=== PATIENT | female | born 1975 | race Caucasian/White ===

== ENCOUNTER 2021-09-01 11:12 | Emergency (ER) | payer SELFPAY ==
[2021-09-01 11:33] VITALS: BP 132/80; PULSE 78; RESP 18; TEMP 36.8; O2SAT 98; BMI 52.4
[2021-09-01 14:51] LABS: Basophils % 0.5 %; Eosinophils % 0.1 %; Hematocrit 42.2 % (37.0-47.0); Hemoglobin 13.8 g/dL (11.5-15.3); Lymphocytes % 12.9 %; Mean Corpuscular HGB Conc 32.7 g/dL (30.0-36.0); Mean Corpuscular Hemoglobin 30.1 pg (28.0-34.0); Mean Corpuscular Volume 91.9 fl (81-99); Mean Platelet Volume 10.3 fL (7.4-10.4); Monocytes # 0.3 10^3/uL (0.2-0.9); Monocytes % 4.4 %; Neutrophils # 6.36 10^3/uL (1.8-7.7); Neutrophils % 81.8 %; Nucleated Red Blood Cells % 0 %; Platelet Count 260 10^3/cmm (130-400); Red Blood Count 4.59 10^6/uL (4.1-5.3); Red Cell Distribution Width 13.3 % (12.1-15.1); White Blood Count 7.8 10^3/uL (4.0-10.0)
--- NOTE | 2021-09-01 14:54 | CTR_ITS ---
PROCEDURE INFORMATION: Exam: CT Abdomen And Pelvis With Contrast Exam date and time: 09/01/2021 2:54 PM Age: 46 years old Clinical indication: Abdominal pain; Localized; Left lower quadrant (llq); Prior surgery; Surgery type: Hernia, tubal, gb; Additional info: Llq pain TECHNIQUE: Imaging protocol: Computed tomography of the abdomen and pelvis with contrast. Radiation optimization: All CT scans at this facility use at least one of these dose optimization techniques: automated exposure control; mA and/or kV adjustment per patient size (includes targeted exams where dose is matched to clinical indication); or iterative reconstruction. Contrast material: OMNI 300; Contrast volume: 95 ml; Contrast route: INTRAVENOUS (IV); COMPARISON: CT abdomen pelvis w con* [id number] 01/30/2017 9:19 PM RADIATION DOSE METRICS: Total DLP (mGy-cm): 1936.11 FINDINGS: Liver: Normal. No mass. Gallbladder and bile ducts: Cholecystectomy. The bile ducts are normal. Pancreas: Normal. No ductal dilation. Spleen: Normal. No splenomegaly. Adrenal glands: Normal. No mass. Kidneys and ureters: Normal. No hydronephrosis. Stomach and bowel: Diverticulosis of the distal colon. No diverticulitis. Appendix: The appendix is not visualized. No secondary signs of appendicitis. Intraperitoneal space: Trace pelvic ascites is likely physiologic. No free peritoneal air. Vasculature: Unremarkable. No abdominal aortic aneurysm. Lymph nodes: Unremarkable. No enlarged lymph nodes. Urinary bladder: Unremarkable as visualized. Reproductive: 4.6 cm left ovarian simple cyst, Hounsfield units less than 20. 5.5 cm complex appearing lesion with central low density, abutting the anterior left uterus and inferior left ovary. The uterus is otherwise unremarkable. The right ovary is normal. Bones/joints: Unremarkable. No acute fracture. Soft tissues: Unremarkable. Other findings: Anterior laparotomy scar. CT/CT abdomen pelvis w con* [id number] IMPRESSION: 1. 5.5 cm complex lesion in the left adnexa. This could represent a pedunculated uterine fibroid with central necrosis or a lesion arising from the ovary. Follow-up with dedicated pelvic ultrasound is recommended. 2. 4.6 cm left ovarian simple cyst. 3. Diverticulosis of the distal colon without evidence for diverticulitis.
--- NOTE | 2021-09-01 15:03 | W.ED.GENADLT ---
HPI - General Adult General: Chief complaint: Abdominal Pain Stated complaint: Pains in lower back and side/blood in stool Time Seen by Provider: 09/01/21 14:54 History of Present Illness: HPI narrative: Patient is a 46-year-old female with history of diverticulitis, cholecystectomy, prior umbilical hernia s/p repair presenting to emergency with complaints of sharp left lower quadrant abdominal pain since yesterday night now with 2 episodes of blood in the stool. Patient tells me that the pain started yesterday while she was at home after eating. Patient denies any fever/chills, melena hematochezia, new vaginal discharge, vaginal bleeding, or urinary symptoms. Patient says the symptoms feels like prior episode of diverticulitis. Denies any cough/runny nose/sore throat, malaise or generalized weakness. Patient has no prior history of kidney stone. She has been able to pass gas without any difficulty. Has been able to tolerate p.o. today without any issue. Onset: 1 day ago Duration: 1 day Location:home Severity:moderate Associated symptoms: Deny chest pain, dyspnea, nausea, rash, palpitations or vomiting Review of Systems Const: Denies: fever(s) or chills Eyes: Denies: change in vision ENMT: Denies: mouth pain Card: Denies: chest pain or palpitations Resp: Denies: dyspnea or non-productive cough GI: Reports: abdominal pain (LLQ); Denies: nausea, vomiting or diarrhea : Denies: urinary frequency or urinary urgency Musc: Denies: extremity pain Skin/Breast: Denies: rash or new lesions Neuro: Denies: weakness in extremities Psych: Reports: other (Normal mood) Howard/Lymph: Denies: easy bruising PFSH ED PFSH: Surgical History Hx of cholecystectomy 2012 Hx of hernia repair 2014 Hx of tubal ligation 1997 Family History Father Hypertension Diabetes Mother Hypertension Diabetes Social History Smoking and tobacco status: former smoker Second hand smoke exposure: No Alcohol intake: never Lives independently: Yes Household members: spouse Housing: Manufactured/Mobile home Marital status: Number of children: 3 Highest education level completed: Some College, No Degree Pets and animals: Yes Pets & animals: cat(s), dog(s) and guinea pig(s) History of recent travel: No Female Reproductive History: Date of last menstrual period: 08/09/21 Physical Exam Const: COMMON NORMALS: alert HENMT: COMMON NORMALS: atraumatic HEAD & SCALP: atraumatic MOUTH: moist mucous membranes not abnormal Eye: COMMON NORMALS: EOMs intact bilaterally and conjunctivae normal CONJUNCTIVA: Yes conjunctivae normal Neck/C-Spine: COMMON NORMALS: full ROM and supple Resp: COMMON NORMALS: normal respiratory effort and clear to auscultation bilaterally AUSCULTATION: clear to auscultation bilaterally Cardio: COMMON NORMALS: regular rate RATE: regular rate GI: COMMON NORMALS: Soft to palpation PALPATION: Yes Soft to palpation OTHER: + LLQ focal TTP. NO guarding rebound, guarding, rigidity. No CVA tenderness to percussion. Neg Man/Neg McBurney's point tenderness, no suprabupic tenderness to palpation. : BIMANUAL EXAM - ADNEXA, OTHER: Yes Other Extremity: COMMON NORMALS: full ROM Neuro: SENSORIUM/ORIENTATION: Yes alert MOTOR EXAM: No Abnormal motor strength present and Other motor observations present (no focal motor deficits) Psych: COMMON NORMALS: speech normal SPEECH: Yes normal speech MOOD & AFFECT: Yes euthymic mood Course Vital Signs: Vital signs: Vital Signs Temperature 98.3 F 09/01/21 11:33 Pulse Rate 69 09/01/21 19:41 Respiratory Rate 17 09/01/21 19:41 Blood Pressure 129/70 09/01/21 19:41 Pulse Oximetry 97 09/01/21 19:41 MDM - General Adult MDM Narrative: Medical decision making narrative: Patient is a 46-year-old female with history of diverticulitis, umbilical hernias s/p repair, cholecystectomy presenting to the emergency room with 1 day of left lower quadrant abdominal pain with hematochezia x2 episodes. Patient deferred rectal exam today. Exam: Patient is hemodynamically stable, no signs of conjunctival pallor she has focal tenderness to palpation in LLQ wihout any guarding or rebound tenderness. White count 7.8 today. Hemoglobin of 13.8. CTpelvis showed possible left complex adnexal lesion. Pelvic US showed hemorrhagic cyst I have given patient follow-up with an applications engineer manufacturing provider for further evaluation of symptoms of pain. Patient aware of a call from our rn case management to schedule for appointment(s) and verbalizes understanding of the importance of following up. No suspicion for other acute intra-abdominal pathology including SBO, biliary pathology, appendicitis, diverticulitis, or other emergent condition requiring surgery. Rx tylenol PRN abd pain, maalox/pepcid PRN dyspepsia, and zofran PRN nausea/vomiting Disposition: Discharge. Patient counseled regarding diagnostic impression, treatment plan. Patient given ED strict return precautions to return for continuation, worsening, or development of new symptoms. Instructed to f/u w/ PCP regarding symptoms today. Patient verbalized understanding. Lab Data: Labs: Lab Results 09/01/21 09/01/21 09/01/21 14:43 14:43 14:43 WBC 7.8 10^3/uL 10^3/ uL (4.0-10.0) RBC 4.59 10^6/uL 10^6 /uL (4.1-5.3) Hgb 13.8 g/dL g/dL (11.5-15.3) Hct 42.2 % % (37.0-47.0) MCV 91.9 fl fl (81-99) MCH 30.1 pg pg (28.0-34.0) MCHC 32.7 g/dL g/dL (30.0-36.0) RDW 13.3 % % (12.1-15.1) Plt Count 260 10^3/cmm 10^3 /cmm (130-400) MPV 10.3 fL fL (7.4-10.4) Neut % (Auto) 81.8 % % Lymph % (Auto) 12.9 % % [place] % (Auto) 4.4 % % Eos % (Auto) 0.1 % % Baso % (Auto) 0.5 % % Neut # (Auto) 6.36 10^3/uL 10^3 /uL (1.8-7.7) Lymph # (Auto) 1.0 10^3/uL 10^3/ uL (0.8-4.8) [place] # (Auto) 0.3 10^3/uL 10^3/ uL (0.2-0.9) Eos # (Auto) 0.0 10^3/uL 10^3/ uL (0.0-0.8) Baso # (Auto) 0.0 10^3/uL 10^3/ uL (0.0-0.1) Nucleated RBC % (a uto) 0 % % Nucleated RBCs # 0.0 /100WBC /100W BC PT 13.20 SECONDS SEC ONDS (12.1-14.9) INR 0.97 (0.8-1.2) Sodium 135 mmol/L L mmol /L (136-145) Potassium 4.0 mmol/L mmol/L (3.5-5.1) Chloride 102 mmol/L mmol/L (98-107) Carbon Dioxide 22 mmol/L mmol/L (22-29) Anion Gap 15.0 (5-19) BUN 13 mg/dL mg/dL (6-20) Creatinine 0.6 mg/dL mg/dL (0.5-0.9) GFR Calculation 107.6 mL/min mL/m in (90-130) Glucose 87 mg/dL mg/dL (65-115) Calculated Osmolal ity 279 mOsm/kg L mOs m/kg (285-295) Calcium 9.0 mg/dL mg/dL (8.5-10.5) Total Bilirubin 0.4 mg/dL mg/dL (0.15-1.2) AST 14 U/L U/L (0-32) ALT 11 U/L U/L (0-33) Alkaline Phosphata se 60 IU/L IU/L (35-105) Total Protein 7.0 g/dL g/dL (6.6-8.7) Albumin 4.2 g/dL g/dL (3.5-5.2) Globulin 2.8 g/dL g/dL (1.3-4.6) Lipase 25 U/L U/L (13-60) Urine Color Urine Appearance Urine pH Ur Specific Gravit y Urine Protein Urine Glucose (UA) Urine Ketones Urine Blood Urine Nitrate Urine Bilirubin Urine Urobilinogen Ur Leukocyte Berkley ase Urine HCG, Qual 09/01/21 09/01/21 15:21 15:21 WBC RBC Hgb Hct MCV MCH MCHC RDW Plt Count MPV Neut % (Auto) Lymph % (Auto) [place] % (Auto) Eos % (Auto) Baso % (Auto) Neut # (Auto) Lymph # (Auto) [place] # (Auto) Eos # (Auto) Baso # (Auto) Nucleated RBC % (a uto) Nucleated RBCs # PT INR Sodium Potassium Chloride Carbon Dioxide Anion Gap BUN Creatinine GFR Calculation Glucose Calculated Osmolal ity Calcium Total Bilirubin AST ALT Alkaline Phosphata se Total Protein Albumin Globulin Lipase Urine Color Yellow (Yellow) Urine Appearance Clear (CLEAR) Urine pH 5 (5-7) Ur Specific Gravit y 1.025 (1.005-1.030) Urine Protein Neg (Negative) Urine Glucose (UA) Norm (Normal) Urine Ketones 1+ H (Negative) Urine Blood Neg (Negative) Urine Nitrate Negative (Negative) Urine Bilirubin Neg (Negative) Urine Urobilinogen Neg mg/dL mg/dL (Negative) Ur Leukocyte Berkley ase Negative (Negative) Urine HCG, Qual Negative (Negative) Imaging Data^: Other Imaging: Radiologist's impression: [address] [id number] Scan ReportSigned Patient: Juliano Stephen #: [id number]: [id number]#:[id number]/Sex: 46 / FADM Date: 09/01/21Loc: ERRoom/Bed:Attending Dr: Ordering Provider/Ordering MD: Marcia Stewart MD Date of Service: 09/01/21 Procedure(s): CT abdomen pelvis w con* [id number] Accession Number(s): [id number] Report Number: [id number] PROCEDURE INFORMATION: Exam: CT Abdomen And Pelvis With Contrast Exam date and time: 09/01/2021 2:54 PM Age: 46 years old Clinical indication: Abdominal pain; Localized; Left lower quadrant (llq); Prior surgery; Surgery type: Hernia, tubal, gb; Additional info: Llq pain TECHNIQUE: Imaging protocol: Computed tomography of the abdomen and pelvis with contrast. Radiation optimization: All CT scans at this facility use at least one of these dose optimization techniques: automated exposure control; mA and/or kV adjustment per patient size (includes targeted exams where dose is matched to clinical indication); or iterative reconstruction. Contrast material: OMNI 300; Contrast volume: 95 ml; Contrast route: INTRAVENOUS (IV); COMPARISON: CT abdomen pelvis w con* [id number] 01/30/2017 9:19 PM RADIATION DOSE METRICS: Total DLP (mGy-cm): 1936.11 FINDINGS: Liver: Normal. No mass. Gallbladder and bile ducts: Cholecystectomy. The bile ducts are normal. Pancreas: Normal. No ductal dilation. Spleen: Normal. No splenomegaly. Adrenal glands: Normal. No mass. Kidneys and ureters: Normal. No hydronephrosis. Stomach and bowel: Diverticulosis of the distal colon. No diverticulitis. Appendix: The appendix is not visualized. No secondary signs of appendicitis. Intraperitoneal space: Trace pelvic ascites is likely physiologic. No free peritoneal air. Vasculature: Unremarkable. No abdominal aortic aneurysm. Lymph nodes: Unremarkable. No enlarged lymph nodes. Urinary bladder: Unremarkable as visualized. Reproductive: 4.6 cm left ovarian simple cyst, Hounsfield units less than 20. 5.5 cm complex appearing lesion with central low density, abutting the anterior left uterus and inferior left ovary. The uterus is otherwise unremarkable. The right ovary is normal. Bones/joints: Unremarkable. No acute fracture. Soft tissues: Unremarkable. Other findings: Anterior laparotomy scar. CT/CT abdomen pelvis w con* [id number] IMPRESSION: 1. 5.5 cm complex lesion in the left adnexa. This could represent a pedunculated uterine fibroid with central necrosis or a lesion arising from the ovary. Follow-up with dedicated pelvic ultrasound is recommended. 2. 4.6 cm left ovarian simple cyst. 3. Diverticulosis of the distal colon without evidence for diverticulitis. Dictated By:Lavern Andrade By:Lavern Andrade Date/Time:09/01/21 1751DD/ [address] [id number] ReportSigned Patient: Juliano Stephen #: [id number]: [id number]#:[id number]/Sex: 46 / FADM Date: 09/01/21Loc: ERRoom/Bed:Attending Dr: Ordering Provider/Ordering MD: Marcia Stewart MD Date of Service: 09/01/21 Procedure(s): US transvaginal [id number] Accession Number(s): [id number] Report Number: [id number] PROCEDURE INFORMATION: Exam: US Pelvis, Transvaginal Exam date and time: 09/01/2021 6:05 PM Age: 46 years old Clinical indication: Abnormal findings; Abnormal imaging test; Patient HX: Mass on CT; Additional info: Eval for L adnexal lesion TECHNIQUE: Imaging protocol: Real-time transvaginal pelvic ultrasound with image documentation. Transvaginal imaging was used for better evaluation of the endometrium, adnexa, and/or cervix. COMPARISON: CT abdomen pelvis w con* [id number] 09/01/2021 5:15 PM FINDINGS: Uterus: The uterus measures 9.8 x 5.0 x 6.4 cm. The endometrial thickness is 13.9 mm. Cervix: Multiple anechoic nabothian cysts in the cervix. Right ovary/adnexa: The right ovary measures 2.6 x 2.2 x 2.1 cm with normal blood flow. Left ovary/adnexa: The left ovary measures 8.9 x 4.3 x 3.1 cm with normal blood flow. 3.9 cm simple anechoic left ovarian cyst. 4.1 cm hemorrhagic cyst in the left ovary with internal echogenicity and no internal vascularity. Small amount of anechoic free fluid in the left adnexa. Intraperitoneal space: No free fluid. US/US transvaginal [id number] IMPRESSION: 1. 4.1 cm hemorrhagic cyst in the left ovary. Hemorrhagic ovarian cysts less than 5.0 cm typically require no follow-up in asymptomatic patients. Because this may relate to the patient's symptoms, follow-up ultrasound in 6-12 weeks is recommended to ensure resolution. Dictated By:Lavern Andrade By:Lavern Andrade Date/Time:09/01/21 193DD/ 04 Discharge Plan Discharge Patient Disposition: Home Clinical Impression: Abdominal pain, Hematochezia Condition: Stable Prescriptions: New acetaminophen 500 mg tablet 500 mg PO Q6H PRN (Reason: pain) 5 Days Qty: 20 RF: 0 Zofran 4 mg tablet 4 mg PO TID PRN (Reason: nausea and vomiting) 4 Days Qty: 12 RF: 0 Pepcid 20 mg tablet 20 mg PO BID PRN (Reason: abdominal pain) 10 Days Qty: 20 RF: 0 Maalox Advanced 1,000-60 mg tablet,chewable 1 tab PO TID PRN (Reason: abdominal pain) 7 Days Qty: 21 RF: 0 No Action amoxicillin-pot clavulanate [Augmentin] 875-125 mg tablet 1 tab PO BID 10 Days Qty: 20 RF: 0 ibuprofen 800 mg tablet 800 mg PO TID PRN (Reason: pain) 10 Days Qty: 30 RF: 0 Discharge Orders: Discharge ED (Routine); Ordered 09/01/21 Ordered By: Marcia Stewart Referrals: Lilibeth Puga MD [Primary Care Provider] - Discharge Diet: Advance as tolerated Discharge Activity: Resume usual activity Patient Instructions: Abdominal Pain (ED) Activity Restrictions/Additional Instructions: Please come back if you have any worsening abdominal pain, fever or chills, nausea or vomiting, diarrhea, blood in the stool, inability hold down liquid or solids, or any new concerning complaints. Our rn case management will have you follow-up with [facility] in the next few days for your hemorrhagic cysts that is causing pain. You would be expected to have a phone call with our rn case management who will put you on the schedule. Coding Level of Care Code ED Still Tender for Chg Fwd Exam Comprehensive
[2021-09-01 15:09] LABS: Alanine Aminotransferase 11 U/L (0-33); Albumin Level 4.2 g/dL (3.5-5.2); Alkaline Phosphatase 60 IU/L (35-105); Aspartate Amino Transferase 14 U/L (0-32); Blood Urea Nitrogen 13 mg/dL (6-20); Carbon Dioxide 22 mmol/L (22-29); Chloride 102 mmol/L (98-107); Globulin 2.8 g/dL (1.3-4.6); Glomerular Filtration Rate 107.6 mL/min (90-130); Glucose 87 mg/dL (65-115); Lipase 25 U/L (13-60); Osmolality Calculated 279 mOsm/kg (285-295); Sodium 135 mmol/L (136-145); Total Bilirubin 0.4 mg/dL (0.15-1.2)
[2021-09-01 15:10] LABS: INR 0.97 (0.8-1.2)
[2021-09-01 15:30] LABS: Add Urine Microscopic? NO; Charge for UA Resulting for Rev
[2021-09-01 15:49] LABS: Bilirubin Urine Neg (Negative); Blood Urine Neg (Negative); Glucose Urine UA Norm (Normal); Ketones Urine 1+ (Negative); Leukocyte Esterase Urine Negative (Negative); Nitrate Urine Negative (Negative); Protein Urine Neg (Negative); Specific Gravity, Urine 1.025 (1.005-1.030); Urine Appearance Clear (CLEAR); Urine Color Yellow (Yellow); Urobilinogen Urine Neg (Negative); pH Urine 5 (5-7)
--- NOTE | 2021-09-01 18:05 | USR_ITS ---
PROCEDURE INFORMATION: Exam: US Pelvis, Transvaginal Exam date and time: 09/01/2021 6:05 PM Age: 46 years old Clinical indication: Abnormal findings; Abnormal imaging test; Patient HX: Mass on CT; Additional info: Eval for L adnexal lesion TECHNIQUE: Imaging protocol: Real-time transvaginal pelvic ultrasound with image documentation. Transvaginal imaging was used for better evaluation of the endometrium, adnexa, and/or cervix. COMPARISON: CT abdomen pelvis w con* [id number] 09/01/2021 5:15 PM FINDINGS: Uterus: The uterus measures 9.8 x 5.0 x 6.4 cm. The endometrial thickness is 13.9 mm. Cervix: Multiple anechoic nabothian cysts in the cervix. Right ovary/adnexa: The right ovary measures 2.6 x 2.2 x 2.1 cm with normal blood flow. Left ovary/adnexa: The left ovary measures 8.9 x 4.3 x 3.1 cm with normal blood flow. 3.9 cm simple anechoic left ovarian cyst. 4.1 cm hemorrhagic cyst in the left ovary with internal echogenicity and no internal vascularity. Small amount of anechoic free fluid in the left adnexa. Intraperitoneal space: No free fluid. US/US transvaginal [id number] IMPRESSION: 1. 4.1 cm hemorrhagic cyst in the left ovary. Hemorrhagic ovarian cysts less than 5.0 cm typically require no follow-up in asymptomatic patients. Because this may relate to the patient's symptoms, follow-up ultrasound in 6-12 weeks is recommended to ensure resolution.
[2021-09-01 18:45] VITALS: BP 127/69; PULSE 67; RESP 16; O2SAT 96
[2021-09-01 19:41] VITALS: BP 129/70; PULSE 69; RESP 17; O2SAT 97
--- NOTE | 2021-09-02 15:11 | DCPLANNER ---
Addendum entered by Radha Dougherty 10/08/21 15:05: manager store called [facility], spoke with Viral, to confirm if an appointment had been scheduled for patient. manager store was told that clinic was unable to reach patient to schedule an appointment. Original Note: manager store had message to schedule a follow up appointment for patient with [facility]. manager store called the [facility] clinic, spoke with Viral, gave clinic patients information. manager store was told that patients information would be printed and reviewed. Clinic will call patient with appointment information.
== END 2021-09-01 19:43 | disposition home or self-care (01) ==
PROVIDERS: Nurse Practitioner Family; Emergency Provider Emergency Medicine; PCP Family Medicine
DX: R10.9 Unspecified abdominal pain (principal); K92.1 Melena; Z87.891 Personal history of nicotine dependence
CPT/HCPCS: 36415; 74177; 76830; 80053; 81003; 81025; 83690; 85025; 85610; 99283; Q9967

== ENCOUNTER 2024-03-07 14:28 | Oncology outpatient (recurring) (ONCR) | payer BC, MEDICAID, SELFPAY | END 2024-03-21 23:59 | disposition home or self-care (01) | PROVIDERS: PCP Nurse Practitioner Family; Visit Provider Internal Medicine | DX: C50.412 Malignant neoplasm of upper-outer quadrant of left female breast (principal) | CPT/HCPCS: 36415; 99215 ==

== ENCOUNTER 2024-03-14 12:55 | Outpatient (CLI) | payer BC, MEDICAID, SELFPAY ==
--- NOTE | 2024-03-14 13:30 | US_ITS ---
WS: [id number] ULTRASOUND-GUIDED LEFT AXILLARY LYMPH NODE BIOPSY CLINICAL INFORMATION: Recently diagnosed LEFT breast cancer at outside facility. No recent mammograms at [facility]. FINDINGS: LEFT axillary ultrasound was performed. Largest lymph node noted in the LEFT axilla was arun ected. Largest lymph node measures approximately 2.7 x 1.5 cm The procedure including risks, benefits, and complications were discussed with the patient who agreed to proceed. Using sterile technique patient was prepped and draped in the usual sterile fashion. Aft er 1% lidocaine utilizing real-time ultrasound guidance four 14-gauge cores were obtained of the LEFT axillary lymph node. No immediate complications. No clip was placed. Pathology demonstrates metastatic poorly differentiated carcinoma. See pathology report for further d etail. US/US bx lymph breast/ax [id number] IMPRESSION: 1. Uncomplicated ultrasound-guided LEFT axillary biopsy 2. Pathology demonstrates metastatic poorly differentiated carcinoma. 3. Recommend follow-up with breast surgery and oncology BI-RADS: 6-Known Biopsy-Proven Malignancy FOLLOW UP: Surgical Biopsy Recommended
== END 2024-03-14 12:56 | disposition home or self-care (01) ==
PROVIDERS: PCP Nurse Practitioner Family; Visit Provider Nurse Practitioner Family
DX: C50.412 Malignant neoplasm of upper-outer quadrant of left female breast (principal)
CPT/HCPCS: 38505; 76942; 88305

== ENCOUNTER 2024-04-11 08:00 | Oncology outpatient (recurring) (ONCR) | payer BC, MEDICAID, SELFPAY ==
[2024-03-27] MEDS: iohexol 350 mg/mL 500 mL Btl (per mL) PO (16:02)
[2024-03-27] MEDS: iohexol 350 mg/mL 500 mL Btl (per mL) IV (16:16)
--- NOTE | 2024-03-27 16:45 | CT_ITS ---
WS: [id number] CT ABDOMEN AND PELVIS WITH CONTRAST HISTORY: carcinoma upper-outer l breast TECHNIQUE: Imaging performed of the abdomen and pelvis with IV contrast. Single phase imaging of the abdomen. Coronal and sagittal reformats are submitted. All CT scans at [facility] use at [address] one of these dose optimization techniques: automated exposure control; mA and/or kV adjustment per patient size (includes targeted exams where dose is matched to clinical indication); or iterative re construction. IV CONTRAST: Omnipaque 350; 100 mL IV. Oral contrast: Yes. DLP: 1659.83 mGy.cm COMPARISON: 09/01/2021 Lower thorax: Lung bases are clear. Heart is normal size. No hiatal hernia. Liver/biliary system: Liver is slightly enlarged with hepatic steatosis. Normal portal vein. Gallbladder: Prior cholecystectomy. Pancreas: Normal size pancreas and pancreatic duct. No adjacent inflammation. Spleen: Normal size spleen. No mass or infarct. Adrenal glands: Normal. Right kidney: Normal. Left kidney: Normal. Aorta: Normal. Lymphadenopathy: None. Free fluid: None. GI tract: No obstruction or colitis. Normal appendix. Mild distal colon diverticular disease. No evid ence for acute diverticulitis. No obstruction. Abdominal wall: Unremarkable abdominal wall. No hernia. Pelvis: No free fluid in the pelvis. Uterus is midline. LEFT adnexal cyst measures 5.3 x 5.9 cm. Pily lar cyst in this location noted in 2021. Cyst appears more simple on today's exam. Bones: Increase in lumbar lordosis. CT/CT abdomen pelvis w con* [id number] IMPRESSION: 1. No evidence for metastatic disease within the abdomen or pelvis. 2. No ascites or adenopathy. 3. Mild sigmoid diverticulosis without acute diverticulitis. 4. LEFT adnexal/ovarian cyst 5.3 x 5.9 cm. 5. Prior cholecystectomy.
--- NOTE | 2024-03-29 09:45 | NM_ITS ---
WS: [id number] NUCLEAR MEDICINE WHOLE BODY BONE SCAN HISTORY: carcinoma of upper-outer quad left breast COMPARISON: Prior CT abdomen and pelvis 03/27/2024. TECHNIQUE: The patient was injected with 24.8 mCi of Technetium 99m HDP and serial whole-body scintig alex have been performed with anterior and posterior images. Whole-body imaging demonstrates no pattern to suggest metastatic disease. The ribs and spine are nega tive for focal areas of intense uptake. Moderate uptake at the RIGHT AC joint and within each knee. More significant increased uptake within the medial LEFT tibial plateau. Soft tissue uptake is normal. Renal activity is identified. NM/NM bone scan whole body* [id number] IMPRESSION: 1. No evidence for metastatic disease to the bony skeleton. 2. Osteoarthritic changes involving each knee, greatest on the LEFT and the RI GHT AC joint.
--- NOTE | 2024-03-30 06:15 | USCV_ITS ---
Ara Stephen Age: 48 Gender: F : 1975 Exam Date: 03/30/2024 06:18 Ordering Phys: Nat Light APRN Technologist: Lauri Oglesby Exam Location: [facility] [place] Indication: high risk meds BP: 129 / 70 HR: 67 Rhythm: Sinus Technical Quality: Adequate MEASUREMENTS (Male / Female) Normal Values 2D ECHO LV Diastolic Diameter PLAX 3.6 cm 4.2 - 5.9 / 3.9 - 5.3 cm IVS Diastolic Thickness 1.8 cm 0.6 - 1.0 / 0.6 - 0.9 cm IVS Systolic Thickness 2.1 cm LVPW Diastolic Thickness 2.2 cm 0.6 - 1.0 / 0.6 - 0.9 cm LVPW Systolic Thickness 2.6 cm LVOT Diameter 2.3 cm LV Ejection Fraction 2D Teich 72.4 % LV Ejection Fraction MOD 4C 61.9 % LV Ejection Fraction MOD 2C 60.7 % LV Ejection Fraction 2C AL 60.8 % LA Diameter 3.5 cm RA Systolic Volume 4C AL 39.8 ml RA Systolic Volume 4C MOD 38.8 ml LA Sys Volume AL 65.0 cm cubed Aorta at Sinotubular Diameter 3.0 cm IVC Diameter 2.1 cm DOPPLER AV Peak Velocity 93.0 cm/s LVOT Peak Velocity 94.0 cm/s AV Area Cont Eq vti 5.2 cm squared AV Area Cont Eq pk 4.0 cm squared MV Peak Velocity 83.0 cm/s MV Area PHT 4.8 cm squared Mitral E to A Ratio 1.1 PV Peak Velocity 80.7 cm/s RV Ejection Time 0.3 s FINDINGS Left Ventricle Left ventricle is normal in size. LV systolic function is normal with EF of 60 to 65%. No regional wall motion abnormalities are seen. Right Ventricle Normal in size and function. Right Atrium Normal in size. Left Atrium Normal in size. Mitral Valve Structurally normal mitral valve. Mild mitral regurgitation. Aortic Valve Structurally normal aortic valve. No significant stenosis or regurgitation. Tricuspid Valve Trace tricuspid regurgitation Pulmonic Valve Not well-visualized Pericardium Normal Aorta Normal in size IVC Appears to be normal CONCLUSIONS LV systolic function is normal with EF of 60 to 65%. Mild mitral regurgitation Trace tricuspid regurgitation No comparison studies are available. Tobias Gerber MD (Electronically Signed) Final Date: 13 April 2024 21:04 S
[2024-04-02 08:22] LABS: Basophils % 0.7 %; Eosinophils # 0.1 10^3/uL (0.0-0.8); Eosinophils % 1.3 %; Hematocrit 40.1 % (36-47); Lymphocytes # 1.8 10^3/uL (0.8-4.8); Lymphocytes % 30.3 %; Mean Corpuscular HGB Conc 32.7 g/dL (30-55); Mean Corpuscular Hemoglobin 29.1 pg (27-33); Mean Corpuscular Volume 89.1 fl (85-98); Mean Platelet Volume 9.8 fL (7.4-10.4); Monocytes # 0.5 10^3/uL (0.2-0.9); Monocytes % 8.3 %; Neutrophils # 3.56 10^3/uL (1.8-7.7); Neutrophils % 59.1 %; Nucleated Red Blood Cells % 0 %; Platelet Count 275 10^3/cmm (157-399); Red Cell Distribution Width 14.6 % (12.1-15.1); White Blood Count 6.03 10^3/uL (3.29-11.43)
[2024-04-02 08:40] LABS: Alanine Aminotransferase 15 U/L (0-33); Albumin Level 3.9 g/dL (3.5-5.2); Alkaline Phosphatase 65 U/L (35-105); Anion Gap 15.9 (5-19); Aspartate Amino Transferase 18 U/L (0-32); Blood Urea Nitrogen 18 mg/dL (6-20); Calcium 9.4 mg/dL (8.5-10.5); Carbon Dioxide 25 mmol/L (22-29); Chloride 102 mmol/L (98-107); Glomerular Filtration Rate 76.6 mL/min (90-130); Glucose 122 mg/dL (65-115); Osmolality Calculated 291 mOsm/kg (285-295); Potassium 3.9 mmol/L (3.5-5.1); Sodium 139 mmol/L (136-145); Total Bilirubin 0.3 mg/dL (0.15-1.2); Total Protein 7.9 g/dL (6.6-8.7)
[2024-04-02 17:29] LABS: Estradiol 53.9 pg/mL; Luteinizing Hormone 7.4 mIU/mL (0.5-41.7)
[2024-04-04 08:10] VITALS: BP 160/83; PULSE 89; RESP 16; TEMP 36.5; O2SAT 96
[2024-04-04] MEDS: sodium chloride 0.9% 250 ML 75 ML IV (08:40)
[2024-04-04] MEDS: OLANZapine 5 mg TABLET PO (08:41)
[2024-04-04] MEDS: famotidine 20 mg/2 mL INJ IVP (08:44)
[2024-04-04] MEDS: diphenhydrAMINE 50 mg/mL SDV 1mL 25 MG IVP (08:49)
[2024-04-04] MEDS: dexamethasone 4 mg/mL INJ 12 MG IVP (08:55)
[2024-04-04] MEDS: palonosetron 0.25 mg/5 mL SDV IVP (09:03)
[2024-04-04] MEDS: fosaprepitant 150 MG in sodium chloride 0.9% 150 ML 300 MG IV (09:23)
[2024-04-04] MEDS: [UNRECOGNIZED DRUG - REMARK] 270.6 MG IV (10:12)
[2024-04-04] MEDS: pertuzumab-trastuzumab-hy-zzxf (80 mg-40 mg-2,000 units/ml) 15mL 1200 MG SUBCUT (13:29)
[2024-04-04] MEDS: pegfilgrastim 6 mg/0.6 mL Kit (onpro) SUBCUT (13:58)
[2024-04-04 14:15] VITALS: BP 117/71; PULSE 79; RESP 17; TEMP 36.2; O2SAT 95
[2024-04-11 08:22] LABS: Hematocrit 40.6 % (36-47); Mean Corpuscular HGB Conc 33.3 g/dL (30-55); Mean Corpuscular Volume 87.1 fl (85-98); Mean Platelet Volume 10.5 fL (7.4-10.4); Platelet Count 211 10^3/cmm (157-399); Red Blood Count 4.66 10^6/uL (3.85-5.65); Red Cell Distribution Width 14.6 % (12.1-15.1); White Blood Count 6.33 10^3/uL (3.29-11.43)
[2024-04-11 08:44] LABS: Alanine Aminotransferase 33 U/L (0-33); Albumin Level 3.7 g/dL (3.5-5.2); Alkaline Phosphatase 82 U/L (35-105); Anion Gap 15.6 (5-19); Aspartate Amino Transferase 19 U/L (0-32); Blood Urea Nitrogen 15 mg/dL (6-20); Calcium 8.6 mg/dL (8.5-10.5); Carbon Dioxide 25 mmol/L (22-29); Chloride 101 mmol/L (98-107); Creatinine Clr Calc Pharmacy 150.6795; Globulin 3.4 g/dL (1.3-4.6); Glomerular Filtration Rate 76.6 mL/min (90-130); Glucose 142 mg/dL (65-115); Osmolality Calculated 289 mOsm/kg (285-295); Potassium 3.6 mmol/L (3.5-5.1); Sodium 138 mmol/L (136-145); Total Bilirubin 0.2 mg/dL (0.15-1.2); Total Protein 7.1 g/dL (6.6-8.7)
[2024-04-11 09:10] LABS: Slide Review Slide Review Perform
[2024-04-11 09:13] LABS: Absolute Eosinophils 0.1 10^3/cmm (0.0-0.7); Absolute Neutrophil 3.7 10^3/cmm (1.4-6.5); Absolute Segmented Neutrophil 2.8 10/cmm (1.6-7.1); Band Neutrophils Absolute 0.9 10^3/cmm (0.0-1.2); Eosinophils 1 %; Lymphocytes 30 %; Lymphocytes Absolute 1.9 10^3/cmm (1.2-3.4); Monocytes Absolute 0.6 10^3/cmm (0.1-0.6); Platelet Estimate Normal (Normal); Segmented Neutrophils 44 %; Total Cells Counted 100 (0-100)
== END 2024-04-11 23:59 | disposition home or self-care (01) ==
PROVIDERS: Nurse Practitioner Family; PCP Nurse Practitioner Family; Visit Provider Nurse Practitioner Family
DX: C50.412 Malignant neoplasm of upper-outer quadrant of left female breast (principal); D05.12 Intraductal carcinoma in situ of left breast
CPT/HCPCS: 36591; 74177; 78306; 80053; 82670; 83001; 83002; 84702; 85007; 85025; 93306; 96367; 96375; 96377; 96402; 96413; 96415; 96417; A9561; J1100; J1200; J1453; J2469; J2506; J3490; J7040; J7050; J9045; J9171; J9316; Q9967

== ENCOUNTER → 2024-04-12 09:25 | Outpatient (BNVA) | payer BC, MEDICAID, SELFPAY | PROVIDERS: PCP Nurse Practitioner Family; Visit Provider Internal Medicine Medical Oncology | DX: R30.0 Dysuria (principal) | CPT/HCPCS: 81000 ==

== ENCOUNTER → 2024-04-18 09:56 | Outpatient (BNVA) | payer BC, MEDICAID, SELFPAY | PROVIDERS: PCP Nurse Practitioner Family; Visit Provider Internal Medicine Medical Oncology | DX: C50.412 Malignant neoplasm of upper-outer quadrant of left female breast (principal) | CPT/HCPCS: 80053; 85025 ==

== ENCOUNTER 2024-04-25 07:43 | Oncology outpatient (recurring) (ONCR) | payer BC, MEDICAID, SELFPAY ==
[2024-04-25 08:14] LABS: Basophils % 0.2 %; Hematocrit 38.6 % (36-47); Lymphocytes # 1.1 10^3/uL (0.8-4.8); Lymphocytes % 6.8 %; Mean Corpuscular HGB Conc 32.4 g/dL (30-55); Mean Corpuscular Hemoglobin 28.6 pg (27-33); Mean Corpuscular Volume 88.3 fl (85-98); Mean Platelet Volume 9.6 fL (7.4-10.4); Monocytes # 0.9 10^3/uL (0.2-0.9); Monocytes % 5.5 %; Neutrophils # 14.05 10^3/uL (1.8-7.7); Neutrophils % 85.3 %; Nucleated Red Blood Cells % 0 %; Platelet Count 476 10^3/cmm (157-399); Red Blood Count 4.37 10^6/uL (3.85-5.65); Red Cell Distribution Width 15.7 % (12.1-15.1); White Blood Count 16.48 10^3/uL (3.29-11.43)
[2024-04-25 08:33] LABS: Alanine Aminotransferase 26 U/L (0-33); Albumin Level 4.1 g/dL (3.5-5.2); Alkaline Phosphatase 67 U/L (35-105); Anion Gap 17.2 (5-19); Aspartate Amino Transferase 16 U/L (0-32); Blood Urea Nitrogen 20 mg/dL (6-20); Calcium 9.4 mg/dL (8.5-10.5); Carbon Dioxide 22 mmol/L (22-29); Chloride 101 mmol/L (98-107); Globulin 3.6 g/dL (1.3-4.6); Glomerular Filtration Rate 76.6 mL/min (90-130); Glucose 168 mg/dL (65-115); Osmolality Calculated 288 mOsm/kg (285-295); Potassium 4.2 mmol/L (3.5-5.1); Sodium 136 mmol/L (136-145); Total Bilirubin 0.2 mg/dL (0.15-1.2); Total Protein 7.7 g/dL (6.6-8.7)
[2024-04-25] MEDS: sodium chloride 0.9% 250 ML 75 ML IV (10:08)
[2024-04-25] MEDS: OLANZapine 5 mg TABLET PO (10:11)
[2024-04-25] MEDS: palonosetron 0.25 mg/5 mL SDV IVP (10:13)
[2024-04-25] MEDS: famotidine 20 mg/2 mL INJ IVP (10:14)
[2024-04-25] MEDS: dexamethasone 4 mg/mL INJ 12 MG IVP (10:18)
[2024-04-25] MEDS: diphenhydrAMINE 50 mg/mL SDV 1mL 25 MG IVP (10:21)
[2024-04-25] MEDS: fosaprepitant 150 MG in sodium chloride 0.9% 150 ML 300 MG IV (10:23)
[2024-04-25] MEDS: pertuzumab-trastuzumab-hy-zzxf (60 mg-60mg-2000 units/mL) 10mL 600 MG SUBCUT (11:06)
[2024-04-25] MEDS: [UNRECOGNIZED DRUG - REMARK] 271 MG IV (11:20)
[2024-04-25 13:47] VITALS: BP 129/76; PULSE 96; RESP 18; TEMP 36.2; O2SAT 94
[2024-04-25] MEDS: pegfilgrastim 6 mg/0.6 mL Kit (onpro) SUBCUT (13:55)
== END 2024-04-25 23:59 | disposition home or self-care (01) ==
PROVIDERS: Nurse Practitioner Family; PCP Nurse Practitioner Family; Visit Provider Nurse Practitioner Family
DX: C50.412 Malignant neoplasm of upper-outer quadrant of left female breast (principal); Z51.12 Encounter for antineoplastic immunotherapy; Z51.11 Encounter for antineoplastic chemotherapy; Z79.52 Long term (current) use of systemic steroids; Z79.899 Other long term (current) drug therapy
CPT/HCPCS: 80053; 85025; 96375; 96377; 96401; 96413; 96417; J1100; J1200; J1453; J2469; J2506; J3490; J7040; J7050; J9045; J9171; J9316

== ENCOUNTER 2024-05-16 07:38 | Oncology outpatient (recurring) (ONCR) | payer BC, MEDICAID, SELFPAY ==
[2024-05-02 09:33] LABS: Basophils # 0.1 10^3/uL (0.0-0.1); Basophils % 1.9 %; Eosinophils % 1.1 %; Hematocrit 42.9 % (36-47); Lymphocytes # 1.3 10^3/uL (0.8-4.8); Lymphocytes % 33.4 %; Mean Corpuscular HGB Conc 33.8 g/dL (30-55); Mean Corpuscular Volume 85.8 fl (85-98); Monocytes # 0.4 10^3/uL (0.2-0.9); Monocytes % 11.8 %; Neutrophils # 1.92 10^3/uL (1.8-7.7); Neutrophils % 51.3 %; Nucleated Red Blood Cells % 0 %; Platelet Count 267 10^3/cmm (157-399); Red Cell Distribution Width 15.1 % (12.1-15.1); White Blood Count 3.74 10^3/uL (3.29-11.43)
[2024-05-02] MEDS: sodium chloride 0.9% 1,000 ML 999 ML IV (09:40)
[2024-05-02] MEDS: ondansetron 2 mg/ML SDV 2 mL 8 MG IVP (09:41)
[2024-05-02] MEDS: dexamethasone 10 mg/mL INJ 12 MG IVP (09:48)
[2024-05-02 09:58] LABS: Slide Review Slide Review Perform
[2024-05-02 10:25] LABS: Alanine Aminotransferase 90 U/L (0-33); Albumin Level 4.2 g/dL (3.5-5.2); Alkaline Phosphatase 99 U/L (35-105); Anion Gap 19.8 (5-19); Aspartate Amino Transferase 42 U/L (0-32); Blood Urea Nitrogen 25 mg/dL (6-20); Calcium 9.1 mg/dL (8.5-10.5); Carbon Dioxide 22 mmol/L (22-29); Chloride 97 mmol/L (98-107); Globulin 3.6 g/dL (1.3-4.6); Glomerular Filtration Rate 66.8 mL/min (90-130); Glucose 157 mg/dL (65-115); Osmolality Calculated 290 mOsm/kg (285-295); Sodium 136 mmol/L (136-145); Total Bilirubin 0.5 mg/dL (0.15-1.2); Total Protein 7.8 g/dL (6.6-8.7)
[2024-05-02 10:27] LABS: Potassium 2.8 mmol/L (3.5-5.1)
[2024-05-02] MEDS: potassium chloride premix 100 ML 50 MEQ IV (10:42)
[2024-05-02 13:00] VITALS: BP 128/82; PULSE 93; RESP 16; TEMP 36.2; O2SAT 95
[2024-05-02] MEDS: loperamide 2 mg Capsule 4 MG PO (13:15)
[2024-05-03 11:25] LABS: Anion Gap 17.8 (5-19); Blood Urea Nitrogen 22 mg/dL (6-20); Calcium 9.4 mg/dL (8.5-10.5); Carbon Dioxide 21 mmol/L (22-29); Chloride 98 mmol/L (98-107); Glomerular Filtration Rate 66.8 mL/min (90-130); Glucose 156 mg/dL (65-115); Osmolality Calculated 285 mOsm/kg (285-295); Sodium 134 mmol/L (136-145)
[2024-05-03 11:26] LABS: Potassium 2.8 mmol/L (3.5-5.1)
[2024-05-03] MEDS: sodium chlor 0.9% + KCl 40 mEq 40 MEQ/1,000 ML BAG 500 MEQ IV (11:54)
[2024-05-03 14:18] VITALS: BP 127/73; PULSE 81; TEMP 35.9; O2SAT 3
[2024-05-03] MEDS: ondansetron 2 mg/ML SDV 2 mL 8 MG IVP (14:32)
[2024-05-03] MEDS: dexamethasone 4 mg/mL INJ IVP (14:39)
[2024-05-04 08:59] LABS: Anion Gap 16.6 (5-19); Blood Urea Nitrogen 21 mg/dL (6-20); Carbon Dioxide 23 mmol/L (22-29); Chloride 101 mmol/L (98-107); Glomerular Filtration Rate 66.8 mL/min (90-130); Glucose 124 mg/dL (65-115); Osmolality Calculated 290 mOsm/kg (285-295); Sodium 138 mmol/L (136-145)
[2024-05-04 09:12] LABS: Potassium 2.6 mmol/L (3.5-5.1)
[2024-05-04 09:44] VITALS: BP 115/49; PULSE 86; RESP 16; TEMP 36.9; O2SAT 95
[2024-05-04 11:04] LABS: Magnesium 1.9 mg/dL (1.7-2.3)
[2024-05-04 12:17] LABS: Urine Appearance Slightly Cloudy (CLEAR); Urine Color Yellow (Yellow)
[2024-05-04 12:18] LABS: Add Urine Microscopic? YES; Bilirubin Urine Neg (Negative); Blood Urine Neg (Negative); Glucose Urine UA Norm (Normal); Ketones Urine Negative (Negative); Leukocyte Esterase Urine Negative (Negative); Nitrate Urine Negative (Negative); Protein Urine 1+ (Negative); Urobilinogen Urine Norm (Negative); pH Urine 6 (5-7)
[2024-05-04 12:20] LABS: RBC Urine 0-4 /hpf (0-2); Squamous Epithelial Cell Urine 0-4 /hpf (0-5); WBC Urine 0-4 /hpf (0-5)
[2024-05-04 12:21] LABS: Add Urine Culture? No; Hyaline Casts Urine 25-40 /lpf; Mucus Urine 1+ /hpf
[2024-05-04 13:23] VITALS: BP 129/80; PULSE 80; RESP 16; TEMP 36.6; O2SAT 97
[2024-05-09 08:43] LABS: Basophils % 0.4 %; Hematocrit 33.9 % (36-47); Lymphocytes # 1.9 10^3/uL (0.8-4.8); Lymphocytes % 21.2 %; Mean Corpuscular HGB Conc 32.4 g/dL (30-55); Mean Corpuscular Hemoglobin 28.6 pg (27-33); Mean Corpuscular Volume 88.1 fl (85-98); Mean Platelet Volume 9.7 fL (7.4-10.4); Monocytes # 0.4 10^3/uL (0.2-0.9); Monocytes % 4.4 %; Neutrophils # 6.34 10^3/uL (1.8-7.7); Neutrophils % 70.2 %; Nucleated Red Blood Cells % 0 %; Platelet Count 107 10^3/cmm (157-399); Red Blood Count 3.85 10^6/uL (3.85-5.65); Red Cell Distribution Width 17.3 % (12.1-15.1); White Blood Count 9.03 10^3/uL (3.29-11.43)
[2024-05-09 09:05] LABS: Alanine Aminotransferase 49 U/L (0-33); Albumin Level 3.6 g/dL (3.5-5.2); Alkaline Phosphatase 83 U/L (35-105); Anion Gap 12.9 (5-19); Aspartate Amino Transferase 20 U/L (0-32); Blood Urea Nitrogen 18 mg/dL (6-20); Calcium 9.1 mg/dL (8.5-10.5); Carbon Dioxide 33 mmol/L (22-29); Chloride 100 mmol/L (98-107); Globulin 2.8 g/dL (1.3-4.6); Glomerular Filtration Rate 106.3 mL/min (90-130); Glucose 115 mg/dL (65-115); Osmolality Calculated 299 mOsm/kg (285-295); Sodium 143 mmol/L (136-145); Total Bilirubin 0.2 mg/dL (0.15-1.2); Total Protein 6.4 g/dL (6.6-8.7)
[2024-05-09 09:07] LABS: Potassium 2.9 mmol/L (3.5-5.1)
[2024-05-16 08:03] LABS: Basophils % 0.2 %; Hematocrit 35.6 % (36-47); Lymphocytes # 0.9 10^3/uL (0.8-4.8); Lymphocytes % 7.7 %; Mean Corpuscular Hemoglobin 29.1 pg (27-33); Mean Corpuscular Volume 90.8 fl (85-98); Monocytes # 0.3 10^3/uL (0.2-0.9); Monocytes % 2.1 %; Neutrophils # 10.38 10^3/uL (1.8-7.7); Neutrophils % 88.7 %; Nucleated Red Blood Cells % 0 %; Platelet Count 321 10^3/cmm (157-399); Red Blood Count 3.92 10^6/uL (3.85-5.65); Red Cell Distribution Width 18.4 % (12.1-15.1)
[2024-05-16 08:26] LABS: Alanine Aminotransferase 35 U/L (0-33); Alkaline Phosphatase 73 U/L (35-105); Anion Gap 16.5 (5-19); Aspartate Amino Transferase 18 U/L (0-32); Blood Urea Nitrogen 14 mg/dL (6-20); Calcium 9.5 mg/dL (8.5-10.5); Carbon Dioxide 24 mmol/L (22-29); Chloride 102 mmol/L (98-107); Globulin 3.1 g/dL (1.3-4.6); Glomerular Filtration Rate 76.2 mL/min (90-130); Glucose 220 mg/dL (65-115); Osmolality Calculated 293 mOsm/kg (285-295); Potassium 4.5 mmol/L (3.5-5.1); Sodium 138 mmol/L (136-145); Total Bilirubin 0.3 mg/dL (0.15-1.2); Total Protein 7.1 g/dL (6.6-8.7)
[2024-05-16] MEDS: sodium chloride 0.9% 250 ML 75 ML IV (10:24)
[2024-05-16] MEDS: OLANZapine 5 mg TABLET PO (10:30)
[2024-05-16] MEDS: palonosetron 0.25 mg/5 mL SDV IVP (10:31)
[2024-05-16] MEDS: famotidine 20 mg/2 mL INJ IVP (10:34)
[2024-05-16] MEDS: dexamethasone 4 mg/mL INJ 12 MG IVP (10:36)
[2024-05-16] MEDS: diphenhydrAMINE 50 mg/mL SDV 1mL 25 MG IVP (10:38)
[2024-05-16] MEDS: fosaprepitant 150 MG in sodium chloride 0.9% 150 ML 300 MG IV (10:52)
[2024-05-16] MEDS: [UNRECOGNIZED DRUG - REMARK] 270 MG IV (11:42)
[2024-05-16] MEDS: pertuzumab-trastuzumab-hy-zzxf (60 mg-60mg-2000 units/mL) 10mL 600 MG SUBCUT (14:03)
[2024-05-16] MEDS: pegfilgrastim 6 mg/0.6 mL Kit (onpro) SUBCUT (14:21)
[2024-05-16 14:33] VITALS: BP 109/69; PULSE 85; RESP 18; TEMP 36.4; O2SAT 92
== END 2024-05-16 23:59 | disposition home or self-care (01) ==
PROVIDERS: Internal Medicine Medical Oncology; Nurse Practitioner Family; PCP Nurse Practitioner Family; Visit Provider Nurse Practitioner Family
DX: Z53.9 Procedure and treatment not carried out, unspecified reason (principal); C50.412 Malignant neoplasm of upper-outer quadrant of left female breast; Z51.12 Encounter for antineoplastic immunotherapy; Z51.11 Encounter for antineoplastic chemotherapy; Z79.899 Other long term (current) drug therapy; Z79.52 Long term (current) use of systemic steroids
CPT/HCPCS: 36591; 80048; 80053; 81001; 83735; 85025; 96360; 96361; 96365; 96366; 96367; 96375; 96377; 96402; 96413; 96417; J1100; J1200; J1453; J2405; J2469; J2506; J3480; J3490; J7030; J7040; J7050; J9045; J9171; J9316

== ENCOUNTER → 2024-05-31 08:01 | Outpatient (BNVA) | payer BC, MEDICAID, SELFPAY | PROVIDERS: PCP Nurse Practitioner Family; Visit Provider Internal Medicine Medical Oncology | DX: C50.412 Malignant neoplasm of upper-outer quadrant of left female breast (principal) | CPT/HCPCS: 80053; 85025 ==

== ENCOUNTER 2024-06-06 08:00 | Oncology outpatient (recurring) (ONCR) | payer BC, MEDICAID, SELFPAY ==
[2024-05-23 09:13] LABS: Basophils # 0.1 10^3/uL (0.0-0.1); Basophils % 1.9 %; Eosinophils % 0.3 %; Hematocrit 36.3 % (36-47); Lymphocytes # 1.6 10^3/uL (0.8-4.8); Mean Corpuscular HGB Conc 33.3 g/dL (30-55); Mean Corpuscular Hemoglobin 29.5 pg (27-33); Mean Corpuscular Volume 88.5 fl (85-98); Mean Platelet Volume 9.6 fL (7.4-10.4); Monocytes # 0.2 10^3/uL (0.2-0.9); Monocytes % 5.6 %; Neutrophils # 1.34 10^3/uL (1.8-7.7); Neutrophils % 41.6 %; Nucleated Red Blood Cells % 0 %; Platelet Count 209 10^3/cmm (157-399); Red Cell Distribution Width 17.7 % (12.1-15.1); White Blood Count 3.22 10^3/uL (3.29-11.43)
[2024-05-23 09:46] LABS: Alanine Aminotransferase 43 U/L (0-33); Albumin Level 3.9 g/dL (3.5-5.2); Alkaline Phosphatase 92 U/L (35-105); Anion Gap 12.6 (5-19); Aspartate Amino Transferase 26 U/L (0-32); Blood Urea Nitrogen 14 mg/dL (6-20); Calcium 9.2 mg/dL (8.5-10.5); Carbon Dioxide 30 mmol/L (22-29); Chloride 100 mmol/L (98-107); Globulin 2.6 g/dL (1.3-4.6); Glomerular Filtration Rate 76.2 mL/min (90-130); Glucose 132 mg/dL (65-115); Osmolality Calculated 290 mOsm/kg (285-295); Potassium 3.6 mmol/L (3.5-5.1); Sodium 139 mmol/L (136-145); Total Bilirubin 0.3 mg/dL (0.15-1.2); Total Protein 6.5 g/dL (6.6-8.7)
[2024-05-23 09:54] LABS: Slide Review Slide Review Perform
[2024-06-06 08:17] LABS: Basophils % 0.2 %; Hematocrit 34.7 % (36-47); Lymphocytes % 7.1 %; Mean Corpuscular HGB Conc 32.6 g/dL (30-55); Mean Corpuscular Hemoglobin 30.2 pg (27-33); Mean Corpuscular Volume 92.8 fl (85-98); Mean Platelet Volume 9.7 fL (7.4-10.4); Monocytes # 0.4 10^3/uL (0.2-0.9); Monocytes % 3.1 %; Neutrophils # 12.06 10^3/uL (1.8-7.7); Neutrophils % 86.9 %; Nucleated Red Blood Cells % 0.2 %; Platelet Count 311 10^3/cmm (157-399); Red Blood Count 3.74 10^6/uL (3.85-5.65); Red Cell Distribution Width 20.4 % (12.1-15.1); White Blood Count 13.88 10^3/uL (3.29-11.43)
[2024-06-06 08:42] LABS: Alanine Aminotransferase 34 U/L (0-33); Albumin Level 4.1 g/dL (3.5-5.2); Alkaline Phosphatase 74 U/L (35-105); Anion Gap 15.3 (5-19); Aspartate Amino Transferase 17 U/L (0-32); Blood Urea Nitrogen 16 mg/dL (6-20); Calcium 9.1 mg/dL (8.5-10.5); Carbon Dioxide 24 mmol/L (22-29); Chloride 105 mmol/L (98-107); Globulin 3.1 g/dL (1.3-4.6); Glomerular Filtration Rate 66.5 mL/min (90-130); Glucose 198 mg/dL (65-115); Osmolality Calculated 297 mOsm/kg (285-295); Potassium 4.3 mmol/L (3.5-5.1); Sodium 140 mmol/L (136-145); Total Bilirubin 0.2 mg/dL (0.15-1.2); Total Protein 7.2 g/dL (6.6-8.7)
[2024-06-06] MEDS: sodium chloride 0.9% 250 ML 75 ML IV (09:48)
[2024-06-06] MEDS: OLANZapine 5 mg TABLET PO (09:48)
[2024-06-06] MEDS: diphenhydrAMINE 50 mg/mL SDV 1mL 25 MG IVP (09:49)
[2024-06-06] MEDS: palonosetron 0.25 mg/5 mL SDV IVP (09:50)
[2024-06-06] MEDS: famotidine 20 mg/2 mL INJ IVP (09:51)
[2024-06-06] MEDS: dexamethasone 4 mg/mL INJ 12 MG IVP (09:52)
[2024-06-06] MEDS: fosaprepitant 150 MG in sodium chloride 0.9% 150 ML 300 MG IV (10:07)
[2024-06-06] MEDS: [UNRECOGNIZED DRUG - REMARK] 271 MG IV (11:02)
[2024-06-06] MEDS: pertuzumab-trastuzumab-hy-zzxf (60 mg-60mg-2000 units/mL) 10mL 600 MG SUBCUT (14:15)
[2024-06-06] MEDS: pegfilgrastim 6 mg/0.6 mL Kit (onpro) SUBCUT (14:29)
[2024-06-06 14:38] VITALS: BP 122/71; PULSE 75; TEMP 36.2; O2SAT 93
== END 2024-06-06 23:59 | disposition home or self-care (01) ==
PROVIDERS: Nurse Practitioner Family; PCP Nurse Practitioner Family; Visit Provider Nurse Practitioner Family
DX: C50.412 Malignant neoplasm of upper-outer quadrant of left female breast; Z51.11 Encounter for antineoplastic chemotherapy; Z51.12 Encounter for antineoplastic immunotherapy; Z79.899 Other long term (current) drug therapy; Z79.52 Long term (current) use of systemic steroids; Z53.9 Procedure and treatment not carried out, unspecified reason
CPT/HCPCS: 36591; 80053; 85025; 96367; 96375; 96377; 96401; 96413; 96417; J1100; J1200; J1453; J2469; J2506; J3490; J7040; J7050; J9045; J9171; J9316

== ENCOUNTER 2024-06-21 08:55 | Oncology outpatient (recurring) (ONCR) | payer BC, MEDICAID, SELFPAY ==
[2024-06-21 10:23] LABS: Basophils % 0.5 %; Hematocrit 32.8 % (36-47); Lymphocytes # 1.5 10^3/uL (0.8-4.8); Mean Corpuscular HGB Conc 31.7 g/dL (30-55); Mean Corpuscular Hemoglobin 29.7 pg (27-33); Mean Corpuscular Volume 93.7 fl (85-98); Mean Platelet Volume 10.2 fL (7.4-10.4); Monocytes # 0.4 10^3/uL (0.2-0.9); Monocytes % 7.3 %; Neutrophils # 3.73 10^3/uL (1.8-7.7); Neutrophils % 65.3 %; Nucleated Red Blood Cells % 0.3 %; Platelet Count 156 10^3/cmm (157-399); Red Cell Distribution Width 20.9 % (12.1-15.1); White Blood Count 5.72 10^3/uL (3.29-11.43)
[2024-06-21 10:28] LABS: Alanine Aminotransferase 30 U/L (0-33); Albumin Level 3.7 g/dL (3.5-5.2); Alkaline Phosphatase 82 U/L (35-105); Anion Gap 14.4 (5-19); Aspartate Amino Transferase 22 U/L (0-32); Blood Urea Nitrogen 13 mg/dL (6-20); Calcium 8.3 mg/dL (8.5-10.5); Carbon Dioxide 27 mmol/L (22-29); Chloride 101 mmol/L (98-107); Creatinine Clr Calc Pharmacy 148.0667; Globulin 2.9 g/dL (1.3-4.6); Glomerular Filtration Rate 76.2 mL/min (90-130); Glucose 126 mg/dL (65-115); Osmolality Calculated 290 mOsm/kg (285-295); Potassium 3.4 mmol/L (3.5-5.1); Sodium 139 mmol/L (136-145); Total Bilirubin 0.3 mg/dL (0.15-1.2); Total Protein 6.6 g/dL (6.6-8.7)
== END 2024-06-21 23:59 | disposition home or self-care (01) ==
PROVIDERS: Nurse Practitioner Family; PCP Nurse Practitioner Family; Visit Provider Nurse Practitioner Family
DX: Z53.9 Procedure and treatment not carried out, unspecified reason (principal); C50.412 Malignant neoplasm of upper-outer quadrant of left female breast; D05.12 Intraductal carcinoma in situ of left breast; R11.2 Nausea with vomiting, unspecified; T45.1X5A Adverse effect of antineoplastic and immunosuppressive drugs, initial encounter; K52.1 Toxic gastroenteritis and colitis; E87.6 Hypokalemia; Z79.899 Other long term (current) drug therapy; Z51.11 Encounter for antineoplastic chemotherapy
CPT/HCPCS: 80053; 85025

== ENCOUNTER 2024-06-21 11:45 | Outpatient (CLI) | payer BC, MEDICAID, SELFPAY ==
--- NOTE | 2024-06-21 11:49 | CT_ITS ---
WS: [id number] CT NECK WITH CONTRAST HISTORY: right posterior cervical definable mass egg size TECHNIQUE: Contiguous 2 mm axial images are performed through the neck with intravenous contrast. Sag ittal and coronal reformats are also submitted. All CT scans at [facility] [place] use at least one o f these dose optimization techniques: automated exposure control; mA and/or kV adjustment per patient size (includes targeted exams where dose is matched to clinical indication); or iterative reconstruc tion. CONTRAST: CONTRAST: Omnipaque 350; 100 mL IV. DLP: 4122.66 mGy.cm COMPARISON: None available. Filling defect with occlusion of the RIGHT internal jugular vein consistent with venous thrombosis. R IGHT jugular vein is slightly dilated as compared to the LEFT. There is a filling defect extending ov er a length of 8.1 cm. Nasopharynx, oropharynx, hypopharynx and larynx are unremarkable. No soft tissue masses or abnormal e nhancement. Torus tubarius and fossa of Rosenmuller and parapharyngeal fat are normal. There are a few small cervical chain lymph nodes. These are bilateral lymph nodes not significantly e nlarged. Thyroid gland and salivary glands are normally enhancing with no masses. Straightening of the cervical lordosis. Visualized portions of the skull base demonstrate no abnormalities. Orbits and globes are within norm al limits. No soft tissue masses. Visualized paranasal sinuses and mastoid air cells are normal. Lung apices are clear. CT/CT neck w con* [id number] IMPRESSION: 1. 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 2. No cervical chain pathologically enlarged lymphadenopathy. 3. Mild soft tissue edema along the RIGHT neck and supraclavicular region. Notified Deborah Nichols APRN at 06/21/2024 1:54 PM.
--- NOTE | 2024-06-21 12:00 | CT_ITS ---
WS: [id number] CT chest w con* [id number] HISTORY: supraclavicular edema TECHNIQUE: Axial imaging performed through the thorax. Coronal and sagittal reformats are submitted. All CT scans at [facility] use at least one of these dose optimization techniques: automated exposure control; mA and/or kV adjustment per patient size (includes targeted exams where dose is mat ched to clinical indication); or iterative reconstruction. CONTRAST: Omnipaque 350; 100 mL IV. DLP: 4122.66 mGy.cm COMPARISON: None available. Lungs and central airway: No pulmonary nodules or mass. Pleura: Normal. No pleural effusion. Heart and pericardium: Normal size heart with no pericardial effusion. Mediastinum and demetrio: No mediastinum or hilar adenopathy. Vessels: Minimal atherosclerosis thoracic aorta. Normal size pulmonary artery. RIGHT subclavian Medip ort in good position. Chest wall and lower neck: There is a small amount of stranding in the RIGHT supraclavicular region c onsistent with edema. There is no mass. No fluid collection. Lumpectomy site RIGHT breast. Upper abdomen: Artifact from patient's body habitus through the upper abdomen. No abnormality is iden tified. Prior cholecystectomy. Osseous structures: Thoracic spondylosis. CT/CT chest w con* [id number] IMPRESSION: 1. No metastatic disease to the lungs or pneumonia. 2. No mediastinal or hilar adenopathy. 3. Mild soft tissue stranding in the RIGHT supraclavicular region most likely edema. No mass or fluid collection. 4. RIGHT subclavian Mediport.
--- NOTE | 2024-06-21 12:00 | CT_ITS ---
WS: [id number] CT HEAD WITH AND WITHOUT CONTRAST HISTORY: abnormal mass in right preauricular area TECHNIQUE: Noncontrast 2.5 mm axial images obtained from the vertex to the skull base. Additional rand ging performed at 2.5 mm axial images status post IV contrast. Bone and soft tissue windows are revie wed. All CT scans at [facility] use at least one of these dose optimization techniques: autom ated exposure control; mA and/or kV adjustment per patient size (includes targeted exams where dose i s matched to clinical indication); or iterative reconstruction. CONTRAST: Omnipaque 350; 100 mL IV. DLP: 4122.66 mGy.cm COMPARISON: None available. No acute intracranial hemorrhage, edema or midline shift. No significant volume loss or atrophy. No p rior infarct. Crowding of the foramen magnum with mild inferior displacement of the cerebellar tonsil s. Mild cerebellar tonsil ectopia. No ventriculomegaly. No enhancing mass or vascular malformations identified. Dural venous sinuses are normally enhancing. Visualized [place] of [place] is unremarkable. Paranasal sinuses as visualized: Clear. Mastoid air cells: Clear. Calvarium and scalp: Intact. CT/CT head wo/w con [id number] IMPRESSION: 1. No acute intracranial hemorrhage or edema. 2. No intracranial enhancing masses or vascular malformations. 3. Mild cerebellar ectopia. No ventriculomegaly.
[2024-06-21] MEDS: iohexol 350 mg/mL 500 mL Btl (per mL) IV (12:34)
== END 2024-06-21 11:46 | disposition home or self-care (01) ==
PROVIDERS: PCP Nurse Practitioner Family; Visit Provider Nurse Practitioner Family
DX: C50.412 Malignant neoplasm of upper-outer quadrant of left female breast (principal); I82.C11 Acute embolism and thrombosis of right internal jugular vein; R60.0 Localized edema; M46.94 Unspecified inflammatory spondylopathy, thoracic region; Z95.828 Presence of other vascular implants and grafts; Z90.49 Acquired absence of other specified parts of digestive tract
CPT/HCPCS: 70470; 70491; 71260

== ENCOUNTER 2024-06-21 16:46 | Inpatient (IN) | payer BC, MEDICAID, SELFPAY ==
--- OUTSIDE RECORDS SUMMARY | 2024-06-21 16:48 | XMS_ITS | Continuity of Care Document ---
Author Name Unknown Organization [facility] Address [address] [place] [address]- Care Team Providers Care Blacksmith Helper Name Role Phone Jennifer Lewis Primary Care Physician [phone] Encounter [employer] Number [id number] Date(s): 03/23/24 - 03/23/24 [facility] [address] [place] [phone] Encounter Diagnosis Breast CA(Discharge Diagnosis) - 03/23/24 Discharge Disposition: .Discharge to Home (Routine) Attending Physician: Chris Cruz MD Admitting Physician: Chris Cruz MD Allergies, Adverse Reactions, Alerts Substance Reaction Severity Status Avocado Angioedema Moderate Active Assessment and Plan Extracted from: Title:Instructions to Patients Author:Chante Harrison Date:03/23/24 Infectious Disease Implanted Port Insertion, Care After The following information offers guidance on how to care for yourself after your procedure. Your health care provider may also give you more specific instructions. If you have problems or questions, contact your health care provider. What can I expect after the procedure? After the procedure, it is common to have: ? ? Discomfort at the port insertion site. ? ? Bruising on the skin over the port. This should improve over 3? 4 days. Follow these instructions at home: Port care ? ? After your port is placed, you will get a tipple tender's information card. The card has information about your port. Keep this card with you at all times. ? ? Take care of the port as told by your health care provider. Ask your health care provider if you or a family member can get training for taking care of the port at home. ? ? A home health care nurse will be be available to help care for the port. ? ? Make sure to remember what type of port you have. Incision care ? ? Follow instructions from your health care provider about how to take care of your port insertion site. Make sure you: ? ? Wash your hands with soap and water for at least 20 seconds before and after you change your bandage (dressing). If soap and water are not available, use hand commodity director. ? ? Change your dressing as told by your health care provider. ? ? Leave stitches (sutures), skin glue, or adhesive strips in place. These skin closures may need to stay in place for 2 weeks or longer. If adhesive strip edges start to loosen and curl up, you may trim the loose edges. Do not remove adhesive strips completely unless your health care provider tells you to do that. ? ? Check your port insertion site every day for signs of infection. Check for: ? ? Redness, swelling, or pain. ? ? Fluid or blood. ? ? Warmth. ? ? Pus or a bad smell. Activity ? ? Return to your normal activities as told by your health care provider. Ask your health care provider what activities are safe for you. ? ? You may have to avoid lifting. Ask your health care provider how much you can safely lift. General instructions ? ? Take ncps-fkt-dayyefx and prescription medicines only as told by your health care provider. ? ? Do not take baths, swim, or use a hot tub until your health care provider approves. Ask your health care provider if you may take showers. You may only be allowed to take sponge baths. ? ? If you were given a sedative during the procedure, it can affect you for several hours. Do not drive or operate machinery until your health care provider says that it is safe. ? ? Wear a medical alert bracelet in case of an emergency. This will tell any health care providers that you have a port. ? ? Keep all follow-up visits. This is important. Contact a health care provider if: ? ? You cannot flush your port with saline as directed, or you cannot draw blood from the port. ? ? You have a fever or chills. ? ? You have redness, swelling, or pain around your port insertion site. ? ? You have fluid or blood coming from your port insertion site. ? ? Your port insertion site feels warm to the touch. ? ? You have pus or a bad smell coming from the port insertion site. Get help right away if: ? ? You have chest pain or shortness of breath. ? ? You have bleeding from your port that you cannot control. These symptoms may be an emergency. Get help right away. Call 911. ? ? Do not wait to see if the symptoms will go away. ? ? Do not drive yourself to the hospital. Summary ? ? Take care of the port as told by your health care provider. Keep the tipple tender's information card with you at all times. ? ? Change your dressing as told by your health care provider. ? ? Contact a health care provider if you have a fever or chills or if you have redness, swelling, or pain around your port insertion site. ? ? Keep all follow-up visits. This information is not intended to replace advice given to you by your health care provider. Make sure you discuss any questions you have with your health care provider. Document Revised: 02/09/2022 Document Reviewed: 02/09/2022 [employer] Patient Education ?? 2023 [employer] Pharmacology General Anesthesia, Adult, Care After The following information offers guidance on how to care for yourself after your procedure. Your health care provider may also give you more specific instructions. If you have problems or questions, contact your health care provider. What can I expect after the procedure? After the procedure, it is common for people to: ? ? Have pain or discomfort at the IV site. ? ? Have nausea or vomiting. ? ? Have a sore throat or hoarseness. ? ? Have trouble concentrating. ? ? Feel cold or chills. ? ? Feel weak, sleepy, or tired (fatigue). ? ? Have soreness and body aches. These can affect parts of the body that were not involved in surgery. Follow these instructions at home: For the time period you were told by your health care provider: ? ? Rest. ? ? Do not participate in activities where you could fall or become injured. ? ? Do not drive or use machinery. ? ? Do not drink alcohol. ? ? Do not take sleeping pills or medicines that cause drowsiness. ? ? Do not make important decisions or sign legal documents. ? ? Do not take care of children on your own. General instructions ? ? Drink enough fluid to keep your urine pale yellow. ? ? If you have sleep apnea, surgery and certain medicines can increase your risk for breathing problems. Follow instructions from your health care provider about wearing your sleep device: ? ? Anytime you are sleeping, including during daytime naps. ? ? While taking prescription pain medicines, sleeping medicines, or medicines that make you drowsy. ? ? Return to your normal activities as told by your health care provider. Ask your health care provider what activities are safe for you. ? ? Take mtvi-asp-tlbshem and prescription medicines only as told by your health care provider. ? ? Do not use any products that contain nicotine or tobacco. These products include cigarettes, chewing tobacco, and vaping devices, such as e-cigarettes. These can delay incision healing after surgery. If you need help quitting, ask your health care provider. Contact a health care provider if: ? ? You have nausea or vomiting that does not get better with medicine. ? ? You vomit every time you eat or drink. ? ? You have pain that does not get better with medicine. ? ? You cannot urinate or have bloody urine. ? ? You develop a skin rash. ? ? You have a fever. Get help right away if: ? ? You have trouble breathing. ? ? You have chest pain. ? ? You vomit blood. These symptoms may be an emergency. Get help right away. Call 911. ? ? Do not wait to see if the symptoms will go away. ? ? Do not drive yourself to the hospital. Summary ? ? After the procedure, it is common to have a sore throat, hoarseness, nausea, vomiting, or to feel weak, sleepy, or fatigue. ? ? For the time period you were told by your health care provider, do not drive or use machinery. ? ? Get help right away if you have difficulty breathing, have chest pain, or vomit blood. These symptoms may be an emergency. This information is not intended to replace advice given to you by your health care provider. Make sure you discuss any questions you have with your health care provider. Document Revised: 11/05/2022 Document Reviewed: 11/05/2022 [employer] Patient Education ?? 2023 [employer] Future Scheduled Tests Radiology* MA Mammo Diag Bilat Digital 03/19/24 * MA US Breast Limited Left 03/19/24 * MA US Breast Limited Right 03/19/24 Medications ALPRAZolam 0.25 mg oral tablet 0, Substitution Permitted Start Date: 03/19/24 Status: Ordered bupropion 300 mg, By mouth, Daily, Refill(s) 0 Start Date: 03/20/24 Status: Ordered diclofenac sodium 75 mg oral delayed release tablet 75 mg = 1 tab, By mouth, BID, # 60 tab, Refill(s) 0 Start Date: 03/20/24 Status: Ordered hydroCHLOROthiazide 25 mg oral tablet 25 mg = 1 tab, By mouth, Daily, # 100 tab, Refill(s) 0 Start Date: 03/20/24 Status: Ordered [place] 5 mg-325 mg oral tablet 1 tab, By mouth, Q6H, PRN for pain, 12 tab, 0, 0, Substitution Permitted, [facility] [place], 67, Height (inches) (Clinical), 03/23/24 7:31:00 CDT, in, 184.2, Weight (kg) (Clinical),03/23/24 7:17:00 CDT, kg Start Date: 03/23/24 Stop Date: 04/07/24 Status: Ordered PARoxetine 40 mg, By mouth, Daily, Refill(s) 0 Start Date: 03/20/24 Status: Ordered spironolactone 50 mg, By mouth, Daily, Refill(s) 0 Start Date: 03/20/24 Status: Ordered Vitamin B12 50 mcg, By mouth, Daily, Refill(s) 0 Start Date: 03/20/24 Status: Ordered Vitamin D3 (cholecalciferol) 4,000 mcg, By mouth, Daily, Refill(s) 0 Start Date: 03/20/24 Status: Ordered Problem List Condition Confirmation Course Effective Dates Status Health St atus Informant Ex-smoker Confirmed Active patient Malignant neoplasm of upper-outer quadrant of left female breast Confirmed Active Procedures Procedure Date Related Diagnosis Body Site Status INSJ TUNNELED CTR VAD W/SUBQ PORT AGE 5 YR/> 03/23/24 Completed port placement 03/23/24 Completed Cholecystectomy 2015 Completed hernia repair 2015 Completed Umbilical hernia repair 2014 C ompleted Laparoscopic cholecystectomy 2012 Completed Tubal ligation 1997 Completed tubal ligation 1997 Completed Results Laboratory List Name Date Test Serum qualita tive (Serum Test Qual) ( Test Serum) 03/23/24 Most recent to oldest [Reference Range]: 1 Test Serum Negative (03/23/24 7:10 AM) Radiology Reports * Exam Date Time Procedure Performing Provider Status 03/23/24 9:59 AM XR Chest 1 View Contributor_system, VRA D; Auth (Verified) Notes: (XR Chest 1 View) Reason For Exam: PORT PLACEMENT REPORT XR Chest 1 View PROCEDURE INFORMATION: Exam: XR Chest Exam date and time: 03/23/2024 9:59 AM Age: 48 years old Clinical indication: Malignant neoplasm of unspecified site of unspecified female breast; Additional info: Port placement TECHNIQUE: Imaging protocol: Radiologic exam of the chest. Views: 1 view. COMPARISON: No relevant prior studies available. FINDINGS: Tubes, catheters and devices: Right-sided port catheter tip is at or near the caval atrial junction. Lungs: Unremarkable. No consolidation. Pleural spaces: Unremarkable. No pleural effusion. No pneumothorax. Heart/Mediastinum: Unremarkable. No cardiomegaly. Diaphragm: There is mild elevation of the right hemidiaphragm. Bones/joints: Unremarkable. IMPRESSION: Right-sided port catheter tip is at or near the caval atrial junction. No acute cardiopulmonary abnormality. Electronically signed by: Kb Chu MD, [facility], 03/23/2024 10:39 Kb Chu MD Signed 03/23/24 10:39:07 (Electronic Signature) Technologist TRARIADNA Vital Signs Most recent to oldest [Reference Range]: 1 2 3 Blood Pressure 150/83mmHg (03/23/24 10:52 AM) 155/82mmHg (03/23/24 10:40 AM) 141/87mmHg (03/23/24 10:24 AM) Height (inches) (Clinical) 67 in (03/23/24 7:28 AM) 67 in (03/23/24 7:17 AM) Weight (kg) (Clinical) 184.2 kg (03/23/24 7:17 AM) BMI (Clinical) 0 kg/m2 (03/23/24 7:28 AM) 63.5 kg/m2 (03/23/24 7:17 AM) Scale Type Bed (03/23/24 7:17 AM) Social History Social History Type Response Smoking Status Former smoker; Smoke less tobacco use: Former smokeless tobacco user, quit more than 30 days ago; Has the patient smoked in the last 365 days, even once? No; Type: Cigarettes; Type: E-Cigs; 2nd hand smoke exposure. No; Stopped at age: 47; entered on: 03/20/24 Sex Female Implantable Device List Procedure Provider Procedure Date Device Type Site Insertion Central Access Catheter Unknown 03/23/24 Non Biological Subclavian, Righ t Device Identifier Serial Number Lot or Batch Number Manufacturing Date Expiration Date Distinct Identification Code MRI Safety Implantable Status Assigning Authority [id number] Unknown [id number] Unknown 10/19/25 Unknown MR Akins Active GS1 Hospital Discharge Instructions Patient Education 03/23/2024 10:26:56 Implanted Port Insertion, Care After Implanted Port Insertion, Care After The following information offers guidance on how to care for yourself after your procedure. Your health care provider may also give you more specific instructions. If you have problems or questions, contact your health care provider. What can I expect after the procedure? After the procedure, it is common to have: ??? Discomfort at the port insertion site. ??? Bruising on the skin over the port. This should improve over 3???4 days. Follow these instructions at home: Port care ??? After your port is placed, you will get a tipple tender's information card. The card has information about your port. Keep this card with you at all times. ??? Take care of the port as told by your health care provider. Ask your health care provider if you or a family member can get training for taking care of the port at home. ??? A home health care nurse will be be available to help care for the port. ??? Make sure to remember what type of port you have. Incision care ??? Follow instructions from your health care provider about how to take care of your port insertion site. Make sure you: ??? Wash your hands with soap and water for at least 20 seconds before and after you change your bandage (dressing). If soap and water are not available, use hand commodity director. ??? Change your dressing as told by your health care provider. ??? Leave stitches (sutures), skin glue, or adhesive strips in place. These skin closures may need to stay in place for 2 weeks or longer. If adhesive strip edges start to loosen and curl up, you maytrim the loose edges. Do not remove adhesive strips completely unless your health care provider tells you to do that. ??? Check your port insertion site every day for signs of infection. Check for: ??? Redness, swelling, or pain. ??? Fluid or blood. ??? Warmth. ??? Pus or a bad smell. Activity ??? Return to your normal activities as told by your health care provider. Ask your health care provider what activities are safe for you. ??? You may have to avoid lifting. Ask your health care provider how much you can safely lift. General instructions ??? Take lakd-wlh-nyasftq and prescription medicines only as told by your health care provider. ??? Do not take baths, swim, or use a hot tub until your health care provider approves. Ask your health care provider if you may take showers. You may only be allowed to take sponge baths. ??? If you were given a sedative during the procedure, it can affect you for several hours. Do not drive or operate machinery until your health care provider says that it is safe. ??? Wear a medical alert bracelet in case of an emergency. This will tell any health care providersthat you have a port. ??? Keep all follow-up visits. This is important. Contact a health care provider if: ??? You cannot flush your port with saline as directed, or you cannot draw blood from the port. ??? You have a fever or chills. ??? You have redness, swelling, or pain around your port insertion site. ??? You have fluid or blood coming from your port insertion site. ??? Your port insertion site feels warm to the touch. ??? You have pus or a bad smell coming from the port insertion site. Get help right away if: ??? You have chest pain or shortness of breath. ??? You have bleeding from your port that you cannot control. These symptoms may be an emergency. Get help right away. Call 911. ??? Do not wait to see if the symptoms will go away. ??? Do not drive yourself to the hospital. Summary ??? Take care of the port as told by your health care provider. Keep the tipple tender's informationcard with you at all times. ??? Change your dressing as told by your health care provider. ??? Contact a health care provider if you have a fever or chills or if you have redness, swelling, or pain around your port insertion site. ??? Keep all follow-up visits. This information is not intended to replace advice given to you by your health care provider. Make sure you discuss any questions you have with your health care provider. Document Revised: 02/09/2022 Document Reviewed: 02/09/2022 [employer] Patient Education ?? 2023 [employer] 03/23/2024 10:26:56 General Anesthesia, Adult, Care After General Anesthesia, Adult, Care After The following information offers guidance on how to care for yourself after your procedure. Your health care provider may also give you more specific instructions. If you have problems or questions, contact your health care provider. What can I expect after the procedure? After the procedure, it is common for people to: ??? Have pain or discomfort at the IV site. ??? Have nausea or vomiting. ??? Have a sore throat or hoarseness. ??? Have trouble concentrating. ??? Feel cold or chills. ??? Feel weak, sleepy, or tired (fatigue). ??? Have soreness and body aches. These can affect parts of the body that were not involved in surgery. Follow these instructions at home: For the time period you were told by your health care provider: ??? Rest. ??? Do not participate in activities where you could fall or become injured. ??? Do not drive or use machinery. ??? Do not drink alcohol. ??? Do not take sleeping pills or medicines that cause drowsiness. ??? Do not make important decisions or sign legal documents. ??? Do not take care of children on your own. General instructions ??? Drink enough fluid to keep your urine pale yellow. ??? If you have sleep apnea, surgery and certain medicines can increase your risk for breathing problems. Follow instructions from your health care provider about wearing your sleep device: ??? Anytime you are sleeping, including during daytime naps. ??? While taking prescription pain medicines, sleeping medicines, or medicines that make you drowsy. ??? Return to your normal activities as told by your health care provider. Ask your health care provider what activities are safe for you. ??? Take ujua-pcv-hmyalun and prescription medicines only as told by your health care provider. ??? Do not use any products that contain nicotine or tobacco. These products include cigarettes, chewing tobacco, and vaping devices, such as e-cigarettes. These can delay incision healing after surgery. If you need help quitting, ask your health care provider. Contact a health care provider if: ??? You have nausea or vomiting that does not get better with medicine. ??? You vomit every time you eat or drink. ??? You have pain that does not get better with medicine. ??? You cannot urinate or have bloody urine. ??? You develop a skin rash. ??? You have a fever. Get help right away if: ??? You have trouble breathing. ??? You have chest pain. ??? You vomit blood. These symptoms may be an emergency. Get help right away. Call 911. ??? Do not wait to see if the symptoms will go away. ??? Do not drive yourself to the hospital. Summary ??? After the procedure, it is common to have a sore throat, hoarseness, nausea, vomiting, or to feel weak, sleepy, or fatigue. ??? For the time period you were told by your health care provider, do not drive or use machinery. ??? Get help right away if you have difficulty breathing, have chest pain, or vomit blood. These symptoms may be an emergency. This information is not intended to replace advice given to you by your health care provider. Make sure you discuss any questions you have with your health care provider. Document Revised: 11/05/2022 Document Reviewed: 11/05/2022 [employer] Patient Education ?? 2023 [employer]. Follow Up Care 03/20/2024 20:38:55 With:Chris Cruz Address: [address] [place] [id number] [facility] (1) When: Unknown Surgical operation note * Chris Cruz MD: PERFORM, SIGN, VERIFY Event Display: Operative Report Authored Date: [id number] Patient: SHAHANA GONZALES Age: 48 years Sex: Female : 1975 Associated Diagnoses: None Author: Chris Cruz MD Postoperative Information Date/ Time: 03/23/2024 09:41:00 Preoperative Diagnosis: Preop Dx (ST) SN - GCD - Preop Diagnosis: Left breast cancer (03/23/24 09:04:18). Postoperative Diagnosis: Postop Dx (ST) SN - GCD - Post Op Diagnosis: Left breast cancer (03/23/24 09:04:18). Procedure: Procedure (ST) SN - SgP - Procedure: Insertion Central Access Catheter (03/23/24) Sn - SgP - Surgeon Preferred Procedure: Subclavian (03/23/24) SN - SgP - Modifiers: Right (03/23/24). Performed by: Primary Surgeon (ST) Surgeon - Primary: Chirs Cruz MD . Senior Health Physics Technician: Physician's Senior Health Physics Technician (ST) No News Correspondent Found . Anesthetic Used: Anesthesia Type (ST) SN - SgP - Anesthesia Type: 3-General (03/23/24). Findings: INDICATIONS: The patient is a 48 year old who has a left breast cancer. After extensive discussion, she understood rationale and need for placement of port for chemotherapy. DESCRIPTION OF PROCEDURE: The patient had the area prepped and draped in sterile fashion.. Local was infiltrated below the clavicle on the right side. A 3 cm incision was made. Sharply dissected through the skin and sub cu. Electrocautery used to create a nice pocket. She was then placed in Trendelenburg position. Fluoroscopy was used for this and the remainder of the procedure. The electrocautery was used to create a pocket after the incision had been made. She was then placed in Trendelenburgposition as mentioned. Needle was passed into subclavian vein lateral third followed by a wire. Wire was in good position. Vein dilator and peel-away over the wire. The vein dilator and the wire were removed from the peel-away portion of the catheter. Catheter was passed through the peel-away portion of the catheter. It was passed until the end was at the superior vena cava right atrial juncture. Peeled away the peel-away portion of the catheter, cut the catheter to size, secured the port and placed the port into the pocket, secured to the posterior wall of the pocket with 2-0 Vicryl. Aspirated and irrigated with heparin. I then secured as mentioned with a 2-0 Vicryl the fascial layer deep and 3-0 Vicryl subcutaneous, 4-0 Monocryl subcuticular. [place] mueller was placed. The patient toleratedthe procedure quite well. Estimated blood loss less than 50 mL. Needle, sponge and instrument countreported correct at the time of the conclusion. Post procedure chest x-ray was ordered. Patient to SDS/PACU in stable condition. . Specimens Removed: Specimens (ST) No Specimens Taken. Estimated Blood Loss: 50 ml. Complications: None. Description of Techniques: Standard. Implants/Grafts: Implant (ST) SN - [place] - Implant Description: PORT POWER CLEARVUE ISP [id number] (03/23/24). Final Count Verification: SN - FCV (ST) SN - FCV - Instruments (Count Correct): n/a (03/23/24 09:09:06) SN - FCV - [place] (Count Corre: Yes (03/23/24 09:09:06) SN - FCV - Sponges (Count Correct): Yes (03/23/24 09:09:06). Electronically signed by:Chrsi Cruz MD 03/23/24 09:42 XR Chest Single view * Kb Chu MD: PERFORM, VERIFY, VERIFY Event Display: Report Authored Date: Note * Kb Chu MD: PERFORM, VERIFY, VERIFY Event Display: Powerscribe Read Authored Date: PROCEDURE INFORMATION: Exam: XR Chest Exam date and time: 03/23/2024 9:59 AM Age: 48 years old Clinical indication: Malignant neoplasm of unspecified site of unspecified female breast; Additional info: Port placement TECHNIQUE: Imaging protocol: Radiologic exam of the chest. Views: 1 view. COMPARISON: No relevant prior studies available. FINDINGS: Tubes, catheters and devices: Right-sided port catheter tip is at or near the caval atrial junction. Lungs: Unremarkable. No consolidation. Pleural spaces: Unremarkable. No pleural effusion. No pneumothorax. Heart/Mediastinum: Unremarkable. No cardiomegaly. Diaphragm: There is mild elevation of the right hemidiaphragm. Bones/joints: Unremarkable. IMPRESSION: Right-sided port catheter tip is at or near the caval atrial junction. No acute cardiopulmonary abnormality. Electronically signed by: Kb Chu MD, [facility], 03/23/2024 10:39 Kb Chu MD Signed 03/23/24 10:39:07 (Electronic Signature) Technologist TR,KGU Patient Care team information Care Team Related Persons Name: CHRIS GONZALES Name: JAZMIN CARDOZA Address: home [address] [place] [id number] Address: mailing [address] [place] [id number]
--- NOTE | 2024-06-21 17:19 | PM.HP ---
Providers/Chief Complaint Admitting Physician: Carlito Ventura DO Primary Care Provider: Jennifer Duong APN Chief Complaint: DVT History of Present Illness Ara Stephen is a 49 year old female with a past medical history of invasive ductal cell carcinoma of the left breast, hypertension, anxiety, depression, who presented today for chemotherapy treatment. Patient states that she was having some tenderness and some swelling in her right supraclavicular area. Oncology provider assessed the area and was concerned this could be DVT related to her indwelling catheter. She was sent for CT of the head, neck, chest and this DVT was confirmed. Oncology provider then called and discussed the case with hospitalist who had agreed to admit the patient. Review of Systems General: Reports: 10 or more systems reviewed and unremarkable except in HPI and below Medications/Allergies Home Medications Medication Instructions Recorded Confirmed Last Taken Type bupropion HCl 300 mg 24 hr tablet, mg PO 02/22/24 06/21/24 Unknown History extended release diclofenac sodium 75 mg 75 mg PO 02/22/24 06/21/24 Unknown History tablet,delayed release hydrochlorothiazide 25 mg tablet mg PO 02/22/24 06/21/24 Unknown History paroxetine HCl 40 mg tablet 40 mg PO DAILY 02/22/24 06/21/24 Unknown History spironolactone 50 mg tablet mg PO 02/22/24 06/21/24 Unknown History dexamethasone 4 mg tablet 8 mg (2 x 4 mg) PO BID #30 tabs 04/02/24 06/21/24 Unknown Rx lorazepam 1 mg tablet 0.5 - 1 mg (0.5 - 1 x 1 mg) PO Q6H 04/02/24 06/21/24 Unknown Rx PRN severe nausea #30 tabs prochlorperazine maleate 10 mg 10 mg PO Q6H PRN mild nausea and 04/02/24 06/21/24 Unknown Rx tablet vomiting #30 tabs sulfamethoxazole 800 1 tab PO BID 5 days #10 tabs 04/12/24 06/21/24 Unknown Rx mg-trimethoprim 160 mg tablet (Bactrim DS) diphenoxylate-atropine 2.5 1 tab PO Q6H PRN severe diarrhea 04/25/24 06/21/24 Unknown Rx mg-0.025 mg tablet (Lomotil) #30 tabs ondansetron 8 mg disintegrating 8 mg PO Q8H PRN nausea and 05/03/24 06/21/24 Unknown Rx tablet vomiting #30 tabs potassium chloride 20 mEq 20 meq PO BID #60 tabs 05/09/24 06/21/24 Unknown Rx tablet,extended release acyclovir 400 mg tablet 400 mg PO TID #21 tabs 05/16/24 06/21/24 Unknown Rx Allergies Allergy/AdvReac Type Severity Reaction Status Date / Time avocado Allergy ALGY-Swell Verified 06/21/24 09:04 Lip/Tongue/Throat PFSH Acute PFSH: Medical History (Updated 06/21/24 @ 17:33 by Carlito Ventura DO) Breast cancer Surgical History (Updated 06/21/24 @ 17:28 by Carlito Ventura DO) Port-A-Cath in place Hx of tubal ligation 1997 Hx of cholecystectomy 2012 Hx of hernia repair 2014 Family History Father Hypertension Diabetes Mother Hypertension Diabetes Social History Smoking and tobacco/nicotine status: former use of tobacco/nicotine Quit status (tobacco/nicotine): has quit using Former quit date comment: Previously smoked 1 pack per week; quit 30 yrs ago. Second hand smoke exposure: No Alcohol intake: current Substance/Drug Use: never Lives independently: Yes Household members: spouse Housing: Manufactured/Mobile home Marital status: Number of children: 3 Highest education level completed: Some College, No Degree Pets and animals: Yes Pets & animals: cat(s), dog(s) and guinea pig(s) Physical Exam Narrative: General: Cooperative patient in no apparent distress. Large body habitus. HEENT: Normocephalic, Atraumatic. External ears normal. Nasal passages patent without drainage. MMM. Swelling noted in the Right supraclavicular region and lateral neck. Mildly TTP. Heart: RRR. Resp: LCTA. No respiratory distress, no use of accessory muscles. Abd: Soft, non-tender. Non-distended. Extremities: No edema. Skin: No rash or lesions on exposed areas. Neuro: No focal motor or sensory loss. Gait is normal. A&P Assessment and plan (1) Chronic deep vein thrombosis (DVT) of internal jugular vein: (2) Primary infiltrating ductal carcinoma of upper-outer quadrant of left breast in female: (3) High risk medication use: (4) Port-A-Cath in place: (5) Hypokalemia: (6) Hyperglycemia: Plan 49 y/o F admitted for Jugular DVT. Admit to Med/Surg for inpatient monitoring and treatment. CT Neck 06/21/24: - Filling defect with occlusion of the RIGHT internal jugular vein consistent with venous thrombosis. RIGHT jugular vein is slightly dilated as compared to the LEFT. There is a filling defect extending over a length of 8.1 cm. Labs: - Mild anemia with a hemoglobin of 10.4. Platelet count currently at 156. Potassium is slightly low at 3.4. Recheck am labs. Will check PTT now in prep to start heparin drip for VTE treatment. Risks and benefits of the therapy was discussed. Check A1c due to hyperglycemia. No previous history of diabetes. She does have a history of hypertension. We will continue her home medications. Will add a cardiac diet. Will check blood cultures to ensure this is not septic thrombus. Anticipate greater than 2 midnight stay for treatment of VTE, labs, blood cultures. Recheck am labs. Code Status: Full IVF: none DVT PPx: heparin for VTE treatment. GI PPx: Protonix ABx: None Diet: Cardiac Discharge plan: Home when able. Attestations Medical Necessity Statement*: Patient will need greater than 2 midnight stay for treatment of VTE, blood cultures, anticoagulant bridging, and treatment of chronic illnesses. Coding Level of Care Code Acute Code for Chg Fwd Moderate MDM includes number and complexity of problems actively addressed during encounter, amount and/or complexity of data reviewed/ordered and described risk of complication, morbidity or mortality of management as documented Diagnoses Chronic deep vein thrombosis (DVT) of internal jugular vein I82.C29 Primary infiltrating ductal carcinoma of upper-outer quadrant of left breast in female C50.412 High risk medication use Z79.899 Port-A-Cath in place Z95.828 Hypokalemia E87.6 Hyperglycemia R73.9
[2024-06-21 17:30] VITALS: BMI 63.3
[2024-06-21 18:00] VITALS: BP 139/89; PULSE 87; RESP 18; TEMP 36.9; O2SAT 94
[2024-06-21] MEDS: heparin 5,000 unit/mL INJ 1 mL IVP (18:08)
[2024-06-21 18:13] LABS: Partial Thromboplastin Time 26.1 SECONDS (23.9-36.7)
[2024-06-21] MEDS: heparin drip 25,000 UNIT/500 ML PREMIX 52 UNIT IV (18:13)
[2024-06-21] MEDS: HYDROcodone-acetaminophen 5-325 mg Tablet 1 TAB PO (18:33)
[2024-06-21 20:00] VITALS: BP 148/94; PULSE 84; RESP 20; TEMP 36.4; O2SAT 93
[2024-06-21 22:00] VITALS: PULSE 95
[2024-06-22] VITALS (9 sets, daily range): BP systolic 120–159; BP diastolic 73–99; PULSE 82–90; RESP 16–20; TEMP 36.6–37.1; O2SAT 91–95
[2024-06-22] MEDS: heparin drip 25,000 UNIT/500 ML PREMIX 45 UNIT IV ×2 (04:01→15:17)
[2024-06-22 07:28] LABS: Basophils % 0.5 %; Hematocrit 32.3 % (36-47); Lymphocytes # 2.1 10^3/uL (0.8-4.8); Lymphocytes % 27.6 %; Mean Corpuscular HGB Conc 32.2 g/dL (30-55); Mean Corpuscular Hemoglobin 30.8 pg (27-33); Mean Corpuscular Volume 95.6 fl (85-98); Mean Platelet Volume 9.9 fL (7.4-10.4); Monocytes # 0.5 10^3/uL (0.2-0.9); Monocytes % 7.1 %; Neutrophils # 4.75 10^3/uL (1.8-7.7); Neutrophils % 63.9 %; Nucleated Red Blood Cells % 0 %; Platelet Count 159 10^3/cmm (157-399); Red Blood Count 3.38 10^6/uL (3.85-5.65); Red Cell Distribution Width 21.2 % (12.1-15.1); White Blood Count 7.44 10^3/uL (3.29-11.43)
[2024-06-22 08:04] LABS: Alanine Aminotransferase 30 U/L (0-33); Albumin Level 3.7 g/dL (3.5-5.2); Alkaline Phosphatase 72 U/L (35-105); Anion Gap 12.1 (5-19); Aspartate Amino Transferase 20 U/L (0-32); Blood Urea Nitrogen 13 mg/dL (6-20); Calcium 8.5 mg/dL (8.5-10.5); Carbon Dioxide 27 mmol/L (22-29); Chloride 105 mmol/L (98-107); Creatinine Clr Calc Pharmacy 170.1663; Glomerular Filtration Rate 88.9 mL/min (90-130); Glucose 121 mg/dL (65-115); Osmolality Calculated 293 mOsm/kg (285-295); Potassium 3.1 mmol/L (3.5-5.1); Sodium 141 mmol/L (136-145); Thyroid Stimulating Hormone 0.72 uIU/mL (0.27-4.20); Total Bilirubin 0.3 mg/dL (0.15-1.2); Total Protein 5.7 g/dL (6.6-8.7)
[2024-06-22 08:19] LABS: Chol HDL Ratio 5.93 mg/dL (0.0-4.40); Cholesterol 178 mg/dL (0-200); HDL Cholesterol 30 mg/dL (60-100); LDL Cholesterol Calculated 109 mg/dL (50-129); LDL HDL Ratio 3.63 RATIO (0.00-3.22); Triglycerides 194 mg/dL (0-150)
[2024-06-22 08:36] LABS: Estmated Average Glucose 140; Hemoglobin A1C 6.5 % (4.0-6.0)
[2024-06-22 08:38] LABS: Partial Thromboplastin Time 73.6 SECONDS (23.9-36.7)
[2024-06-22] MEDS: HYDROcodone-acetaminophen 5-325 mg Tablet 1 TAB PO (09:46)
[2024-06-22] MEDS: potassium chloride ER 20 mEq Tablet PO (12:03)
--- NOTE | 2024-06-22 12:54 | PC.CHAP ---
Pastoral Care Encounter/Spiritual Assessment Type of Contact [] Declined pharmacy student visit [] Patient/Family/Request visit [] Outpatient visit [] Follow-up visit [] Physician referral [] Code/Alert [x] Routine visit [] Staff referral [] Actively dying [] Patient sleeping [] Family support [] [] Out of room [] Palliative care [] [] Receiving care in room [] Pre-surgical visit [] Trauma [] Long length of stay [] ICU visit [] Other: Relational/Emotional Strength [x] Patient feels connected with others/family/visitors/staff [] Distress [] Loneliness/isolation [] Abandonment Spirituality of Patient x] Person of Barbara [x] Attends Rastafari of their Barbara [x] Believes in Prayer [] Reads Bible or Hinduism materials [x] There are Spiritual issues to be addressed Filling Mixer Interventions [x] Prayer [x] Active listening [x] Non-anxious presence [] Spiritual/emotional support [] Crisis/trauma care [x] Spiritual counseling [] Bereavement support [] Provided bereavement packet [] Provided Bible/devotional materials [] Provided toy/stuffed animal, coloring book to patient or family member [] Provided Communion [] Anointing/[place] [] Salvation [] Completed spiritual assessment [] Other: Impact on Illness or Injury [] Angry [x] Fearful [x] Anxious [] Often cries [] Exhaustion [] Unable to work [] Unable to attend christian [] Unable to walk/stand [] Unable to read [] Unable to drive [] Unable to eat/drink [] Unable to sleep [] Unable to be with family [] Patient intubated [] Other: Summary I feel God is working on them tears after prayer. P+1 Time spent with patient 30 min
[2024-06-22 14:01] LABS: Partial Thromboplastin Time 65.4 SECONDS (23.9-36.7)
--- NOTE | 2024-06-22 17:27 | P.PN_ITS ---
Subjective 2 Subjective: No overnight events. Reports that the right side of her neck and shoulder area are sore. She has had to request pain medication a couple of times. She has been able to eat and drink okay. She denies any shortness of breath or chest pain. Medications: Reviewed: Yes Vitals/I&O/Wt Last Vital Signs Temp 98.4 F 06/22/24 15:27 Pulse 86 06/22/24 15:27 Resp 16 06/22/24 15:27 BP 159/99 06/22/24 15:27 Pulse Ox 95 06/22/24 15:27 O2 Del Method Room Air 06/22/24 15:27 06/22/24 06/22/24 06/22/24 06:59 14:59 22:59 Intake Total 491.283 / 838.065 1899 / 1160 500 / 1660 Balance 491.283 / 394.553 7536 / 1160 500 / 1660 Weight last 48 hrs Weight 407 lb 6.4 oz Weight 404 lb 3.2 oz Physical Exam 2 Narrative: General: Cooperative patient in no apparent distress. Large body habitus. HEENT: Normocephalic, Atraumatic. External ears normal. Nasal passages patent without drainage. MMM. Swelling noted in the Right supraclavicular region and lateral neck. Mildly TTP. Heart: RRR. Resp: LCTA. No respiratory distress, no use of accessory muscles. Abd: Soft, non-tender. Non-distended. Extremities: No edema. Skin: No rash or lesions on exposed areas. Neuro: No focal motor or sensory loss. Gait is normal. 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 Admit to Med/Surg for inpatient monitoring and treatment. CT Neck 10/31/24: Filling defect with occlusion of the RIGHT internal jugular vein consistent with venous thrombosis. RIGHT jugular vein is slightly dilated as compared to the LEFT. There is a filling defect extending over a length of 8.1 cm. Recheck am labs. She is currently on heparin and will continue. A1c returned at 6.5. We will provide this information to her primary care physician. Hold on treatment at this time. Blood pressure labile. She has had several pressures within normal range, and several that are elevated. May be due to pain as she has been very uncomfortable. I will add a low-dose Norvasc to her regimen. Switch to regular diet. Blood cultures pending. Anticipate greater than 2 midnight stay for treatment of VTE, labs, blood cultures. Recheck am labs. Code Status: Full IVF: none DVT PPx: heparin for VTE treatment. GI PPx: Protonix ABx: None Diet: Regular Discharge plan: Home when able. Attestations 2 Medical Necessity Statement*: Patient will need greater than 2 midnight stay for treatment of VTE, blood cultures, anticoagulant bridging, and treatment of chronic illnesses. Coding Level of Care Code Acute Code for Chg Fwd Moderate MDM includes number and complexity of problems actively addressed during encounter, amount and/or complexity of data reviewed/ordered and described risk of complication, morbidity or mortality of management as documented Diagnoses Chronic deep vein thrombosis (DVT) of internal jugular vein I82.C29 Primary infiltrating ductal carcinoma of upper-outer quadrant of left breast in female C50.412 High risk medication use Z79.899 Port-A-Cath in place Z95.828 Hypokalemia E87.6 Hyperglycemia R73.9
[2024-06-22] MEDS: amlodipine 5 mg Tablet 2.5 MG PO (18:00)
[2024-06-22 19:38] LABS: Partial Thromboplastin Time 63.7 SECONDS (23.9-36.7)
[2024-06-22] MEDS: acetaminophen 325 mg Tablet 650 MG PO (19:39)
--- NOTE | 2024-06-22 21:28 | P.PN_ITS ---
Subjective 2 Subjective: RN called me to report new worsening headache right neck and posterior neck and base of skull. Patient has known right IJ complete occlusion associated with right chest Port-A-Cath and ongoing treatment for invasive ductal carcinoma of the breast. The patient reports her headache is improved after Tylenol. Due to concerns of complications of internal jugular occlusion I reviewed up-to-date and there is discussion of seizures, visual loss acutely and chronic headaches developing chronically if internal jugular vein occlusion is not rapidly resolved. I also reviewed Dr. Badillo's note as well as Dr. Ventura's and communicated with Dr. Ventura. The patient appears to be in no distress Vitals/I&O/Wt Last Vital Signs Temp 98.2 F 06/22/24 19:42 Pulse 88 06/22/24 19:42 Resp 18 06/22/24 19:42 BP 143/88 06/22/24 19:42 Pulse Ox 95 06/22/24 19:42 O2 Del Method Room Air 06/22/24 19:42 06/22/24 06/22/24 06/22/24 06:59 14:59 22:59 Intake Total 491.283 / 292.077 4572 / 1160 1148.25 / 2308.25 Balance 491.283 / 754.612 5455 / 1160 1148.25 / 2308.25 Weight last 48 hrs Weight 184.794 kg Weight 183.342 kg Physical Exam 2 Narrative: General well-developed well-nourished obese female in no acute cardiopulmonary distress CV regular rate and rhythm Lungs clear to auscultation bilaterally Neck some fullness in the right neck mildly tender. Not hot and no fluctuance Neuro external ocular movements are intact pupils are equally round and reactive light accommodation smile is symmetric eye squint and opening also equal and symmetric Speech is clear she is alert and pleasant Data 06/22/24 07:19 06/22/24 07:19 Micro: Microbiology 06/21/24 19:21 Blood Culture - Preliminary Blood NEGATIVE TO DATE 06/21/24 17:35 Blood Culture - Preliminary Blood NEGATIVE TO DATE A&P Assessment and plan (1) Internal jugular (IJ) vein thromboembolism, acute: PTT running 67 and patient is obese and on 2250+ units of heparin an hour. I am going to increase this to 2400 units an hour and have labs drawn in 4 hours. Will run the PTT closer to 85 and see if we make headway on this clot. Anticipate repeating CT scan of the neck or Doppler of the neck to see if the clot has diminished or is resolving. If not resolving within 48 to 72 hours of admission I would favor removing the right side port to decrease chance of chronic headaches from chronic internal jugular occlusion. Catheter-based thrombolysis also an option. I discussed with the patient that typically anticoagulation alone or cath that or removal alone should resolve catheter-based clot but both maneuvers done together almost always is successful and although she has cancer there is no appearance of compression on the internal jugular vein directly by any cancer (2) Primary infiltrating ductal carcinoma of upper-outer quadrant of left breast in female: We are trying to preserve the port for her chemotherapy. See above Plan 30 minutes spent in evaluation coordination of care for this patient this evening Attestations 2 Medical Necessity Statement*: Anticipate the patient stay will be greater than 2 midnights for anticoagulation or port removal Coding Level of Care Code Acute Code for g Fwd Diagnoses Internal jugular (IJ) vein thromboembolism, acute I82.C19 Primary infiltrating ductal carcinoma of upper-outer quadrant of left breast in female C50.412
[2024-06-22] MEDS: ondansetron 2 mg/ML SDV 2 mL 4 MG IVP (22:18)
[2024-06-22] MEDS: morphine 4 mg/mL SDV 1 mL 2 MG IVP (22:35)
--- NOTE | 2024-06-22 23:02 | PC.NURSE ---
Patient complaining of worsening headache as well as nausea, Hospitalist Dr. Perdomo notified and ordered 2mg ivp morphine and advised to give Zofran. Zofran and Morphine given and patient does not endorse worsening of symptoms at this time.
[2024-06-23] VITALS (9 sets, daily range): BP systolic 106–136; BP diastolic 65–92; PULSE 73–86; RESP 14–19; TEMP 36.4–37; O2SAT 92–95
[2024-06-23 01:06] LABS: Basophils % 0.4 %; Hematocrit 30.5 % (36-47); Lymphocytes # 1.8 10^3/uL (0.8-4.8); Lymphocytes % 25.4 %; Mean Corpuscular HGB Conc 32.5 g/dL (30-55); Mean Corpuscular Hemoglobin 30.9 pg (27-33); Mean Corpuscular Volume 95.3 fl (85-98); Mean Platelet Volume 10.1 fL (7.4-10.4); Monocytes # 0.5 10^3/uL (0.2-0.9); Neutrophils # 4.64 10^3/uL (1.8-7.7); Neutrophils % 65.8 %; Nucleated Red Blood Cells % 0 %; Platelet Count 173 10^3/cmm (157-399); Red Cell Distribution Width 21.4 % (12.1-15.1); White Blood Count 7.05 10^3/uL (3.29-11.43)
[2024-06-23] MEDS: ketorolac 30 mg/mL INJ 15 MG IVP (01:12)
[2024-06-23 01:33] LABS: Alanine Aminotransferase 28 U/L (0-33); Albumin Level 3.7 g/dL (3.5-5.2); Alkaline Phosphatase 70 U/L (35-105); Anion Gap 14.5 (5-19); Aspartate Amino Transferase 18 U/L (0-32); Blood Urea Nitrogen 11 mg/dL (6-20); Calcium 8.3 mg/dL (8.5-10.5); Carbon Dioxide 26 mmol/L (22-29); Chloride 103 mmol/L (98-107); Creatinine Clr Calc Pharmacy 170.1663; Globulin 2.6 g/dL (1.3-4.6); Glomerular Filtration Rate 88.9 mL/min (90-130); Glucose 144 mg/dL (65-115); Osmolality Calculated 292 mOsm/kg (285-295); Potassium 3.5 mmol/L (3.5-5.1); Sodium 140 mmol/L (136-145); Total Bilirubin 0.2 mg/dL (0.15-1.2); Total Protein 6.3 g/dL (6.6-8.7)
[2024-06-23] MEDS: heparin drip 25,000 UNIT/500 ML PREMIX 49.54 UNIT IV ×2 (01:44→12:21)
[2024-06-23] MEDS: acetaminophen 325 mg Tablet 650 MG PO (04:23)
[2024-06-23 06:27] LABS: Partial Thromboplastin Time 81.1 SECONDS (23.9-36.7)
[2024-06-23] MEDS: ondansetron 2 mg/ML SDV 2 mL 4 MG IVP ×2 (06:39→14:09)
--- NOTE | 2024-06-23 06:50 | USR_ITS ---
PROCEDURE INFORMATION: Exam: US Duplex Right Upper Extremity Veins, Limited Exam date and time: 06/23/2024 8:54 AM Age: 49 years old Clinical indication: Condition or disease; Other: Thrombus in RT ijv per CT; Additional info: Right ij occlusion, please evaluate for any improvement or extension of ij TECHNIQUE: Imaging protocol: Real-time duplex ultrasound of the right Upper Extremity with 2-D rock scale, color Doppler flow and spectral waveform analysis with image documentation. Limited exam focused on the right upper extremity veins. COMPARISON: NM bone scan whole body* [id number] 03/29/2024 9:45 AM FINDINGS: Right deep veins: Evidence of prominent, occlusive thrombus/deep venous thrombosis projecting right internal jugular vein, with evidence of extension into right innominate/brachiocephalic vein region, partially included, not well visualized. No additional deep venous thrombosis demonstrated visualized portions right upper extremity. Superficial veins: No thrombus demonstrated visualized portions cephalic, basilic veins. Soft tissues: Unremarkable. US/[place] [id number] IMPRESSION: Evidence of prominent, occlusive thrombus/deep venous thrombosis projecting right internal jugular vein, with evidence of extension into right innominate/brachiocephalic vein region. pet technologist/environmental studies department chair indicates known per CT scan.
[2024-06-23] MEDS: potassium chloride ER 20 mEq Tablet PO (09:37)
[2024-06-23] MEDS: pantoprazole DR 40 mg Tablet PO (09:37)
[2024-06-23] MEDS: amlodipine 5 mg Tablet 2.5 MG PO (09:37)
[2024-06-23] MEDS: HYDROcodone-acetaminophen 5-325 mg Tablet 1 TAB PO ×3 (09:48→18:59)
[2024-06-23 11:04] LABS: Iron 66 ug/dL (37-145); Percent Saturation 26.8 % (20-50); Total Iron Binding Capacity 246 mcg/dl; Unsaturated Iron Binding 180 ug/dL (112-347)
[2024-06-23 13:14] LABS: Partial Thromboplastin Time 69.6 SECONDS (23.9-36.7)
--- NOTE | 2024-06-23 14:50 | CTR_ITS ---
PROCEDURE INFORMATION: Exam: CT Head Without And With Contrast Exam date and time: 06/23/2024 4:25 PM Age: 49 years old Clinical indication: Other: Concerns for dural sinus thrombosis, venogram TECHNIQUE: Imaging protocol: Computed tomography of the head without and with contrast. 3D rendering (Not supervised by radiologist): MIP and/or 3D reconstructed images were created by the technologist. Radiation optimization: All CT scans at this facility use at least one of these dose optimization techniques: automated exposure control; mA and/or kV adjustment per patient size (includes targeted exams where dose is matched to clinical indication); or iterative reconstruction. Contrast material: OMNI 350; Contrast volume: 100 ml; Contrast route: INTRAVENOUS (IV); COMPARISON: [place] [id number] 06/23/2024 3:34 PM RADIATION DOSE METRICS: Total DLP (mGy-cm): 2545.08 FINDINGS: Brain: Filling defect previously described on the MRV at medial aspect of the right transverse sinus represent an arachnoid granulation. No recent infarct, intracranial bleed or mass effect. Cerebral ventricles: No ventriculomegaly. Pituitary gland and sella: Enlarged pituitary gland with suprasellar extension. Paranasal sinuses: The remaining sinuses are patent. Mastoid air cells: Visualized mastoid air cells are well aerated. Bones: Unremarkable. No acute fracture. Soft tissues: Unremarkable. Vasculature: No dural venous sinus thrombosis. CT/CT head wo/w con [id number] IMPRESSION: No dural venous sinus thrombus. Arachnoid granulation in the right transverse sinus.
--- NOTE | 2024-06-23 15:00 | MRR_ITS ---
PROCEDURE INFORMATION: Exam: MRA Head Without Contrast; Venography Exam date and time: 06/23/2024 3:34 PM Age: 49 years old Clinical indication: Pain; Headache; Additional info: Headache, concerns for dural sinus thrombosis, right ij dvt TECHNIQUE: Imaging protocol: Magnetic resonance angiography of the head without contrast. Whna-ha-rdknug (TOF) technique was utilized for this exam. Exam focused on the veins. COMPARISON: CT head wo/w con [id number] 06/21/2024 12:16 PM FINDINGS: Superior sagittal sinus: Patent. Straight sinus: Patent. Transverse sinuses: Patent left transverse sinus. Focal defect in the right transverse sinus, medially, suggestive of a nonocclusive thrombus. Sigmoid sinuses: Patent. Internal jugular veins: Visualized segment patent[place] MR/[place] [id number] IMPRESSION: Focal defect in the right transverse sinus, medially, suggestive of a nonocclusive thrombus.
[2024-06-23] MEDS: iohexol 350 mg/mL 500 mL Btl (per mL) IV (16:32)
--- NOTE | 2024-06-23 16:54 | P.PN_ITS ---
Subjective 2 Subjective: Hospital course, labs appreciated. Patient continued on heparin drip. Denies any vomiting but complaining of persistent headache since last night along with nausea with some relief with Tylenol, slight blurry vision on the right eye. Denies any chest pain or difficulty breathing. Medications: Reviewed: Yes Vitals/I&O/Wt Last Vital Signs Temp 98.0 F 06/23/24 11:49 Pulse 81 06/23/24 14:00 Resp 14 06/23/24 11:49 BP 128/91 06/23/24 11:49 Pulse Ox 92 06/23/24 11:49 O2 Del Method Room Air 06/23/24 11:49 06/23/24 06/23/24 06/23/24 06:59 14:59 22:59 Intake Total 234.827 / 2793.077 1034.494 / 1034.494 Balance 234.827 / 2793.077 1034.494 / 1034.494 Weight last 48 hrs Weight 187.016 kg Weight 184.794 kg Weight 183.342 kg Physical Exam 2 Narrative: General well-developed well-nourished obese female in no acute cardiopulmonary distress CV regular rate and rhythm Lungs clear to auscultation bilaterally Neck some fullness in the right neck mildly tender. Not hot and no fluctuance Neuro external ocular movements are intact pupils are equally round and reactive light accommodation smile is symmetric eye squint and opening also equal and symmetric Speech is clear she is alert and pleasant Data 06/24/24 00:22 06/24/24 00:22 Micro: Microbiology 06/21/24 19:21 Blood Culture - Preliminary Blood NEGATIVE TO DATE 06/21/24 17:35 Blood Culture - Preliminary Blood NEGATIVE TO DATE A&P Assessment and plan (1) Internal jugular (IJ) vein thromboembolism, acute: Associated with right hemithorax port. Case discussed with oncology on admission. Continue with heparin drip for now. Plan to continue heparin drip for at least 72 hours. Continue heparin drip maintaining PTT around 80. (2) Primary infiltrating ductal carcinoma of upper-outer quadrant of left breast in female: We are trying to preserve the port for her chemotherapy as per request of her oncologist (3) Headache: Continued headache for last 12 hours. Given some changes in vision of right eye there is a concern for dural sinus thrombosis. Will plan for CT venogram. (4) Port-A-Cath in place: Plan Given worsening symptoms, persistent headache with concerns for worsening of right IJ occlusion versus dural sinus thrombosis care discussed in detail with vascular surgeon, IR team at [facility]. They reviewed the images. As per the vascular surgeon if symptoms persist we can try to do thrombosuction but as per the IR team as patient is currently stable and there are no concerns for dural sinus thrombosis on CT imaging from admission for now we will hold off from thrombosuction continue with anticoagulation. They do suggest MR venogram. Restart other home medications. Full code Carb consistent diet Heparin will be sufficient for DVT prophylaxis Protonix for PUD prophylaxis Attestations 2 Medical Necessity Statement*: Requires further hospitalization for management of complete occlusion of right IJ in setting of port Diagnoses Internal jugular (IJ) vein thromboembolism, acute I82.C19 Primary infiltrating ductal carcinoma of upper-outer quadrant of left breast in female C50.412 Headache R51.9 Port-A-Cath in place Z95.828
[2024-06-23] MEDS: heparin drip 25,000 UNIT/500 ML PREMIX 52 UNIT IV (22:40)
--- NOTE | 2024-06-23 23:25 | PC.NURSE ---
Start of shift night shift supervisor hospitalist Dr Thomas came up to the med surg floor and gave verbal orders to keep patients Ptt within the range of 75-80, if not within range to call provider for verbal orders in regards to titration of heparin drip. Next ptt is to be drawn at 0015.
[2024-06-24] VITALS (9 sets, daily range): BP systolic 113–131; BP diastolic 70–79; PULSE 78–88; RESP 14–19; TEMP 36.4–36.9; O2SAT 92–98
[2024-06-24] MEDS: HYDROcodone-acetaminophen 5-325 mg Tablet 1 TAB PO ×5 (00:30→20:06)
[2024-06-24 00:31] LABS: Basophils % 0.5 %; Hematocrit 30.6 % (36-47); Lymphocytes # 1.7 10^3/uL (0.8-4.8); Lymphocytes % 19.6 %; Mean Corpuscular Hemoglobin 30.5 pg (27-33); Mean Corpuscular Volume 95.3 fl (85-98); Monocytes # 0.6 10^3/uL (0.2-0.9); Monocytes % 6.4 %; Neutrophils # 6.24 10^3/uL (1.8-7.7); Neutrophils % 72.6 %; Nucleated Red Blood Cells % 0.2 %; Platelet Count 195 10^3/cmm (157-399); Red Blood Count 3.21 10^6/uL (3.85-5.65); Red Cell Distribution Width 21.5 % (12.1-15.1); White Blood Count 8.59 10^3/uL (3.29-11.43)
[2024-06-24 00:45] LABS: Partial Thromboplastin Time 65.1 SECONDS (23.9-36.7)
[2024-06-24 00:52] LABS: Alanine Aminotransferase 27 U/L (0-33); Albumin Level 3.6 g/dL (3.5-5.2); Alkaline Phosphatase 66 U/L (35-105); Anion Gap 12.3 (5-19); Aspartate Amino Transferase 17 U/L (0-32); Blood Urea Nitrogen 7 mg/dL (6-20); Calcium 8.9 mg/dL (8.5-10.5); Carbon Dioxide 28 mmol/L (22-29); Chloride 103 mmol/L (98-107); Creatinine Clr Calc Pharmacy 150.0891; Globulin 2.1 g/dL (1.3-4.6); Glomerular Filtration Rate 76.2 mL/min (90-130); Glucose 144 mg/dL (65-115); Magnesium 1.3 mg/dL (1.7-2.3); Osmolality Calculated 291 mOsm/kg (285-295); Potassium 3.3 mmol/L (3.5-5.1); Sodium 140 mmol/L (136-145); Total Bilirubin 0.2 mg/dL (0.15-1.2); Total Protein 5.7 g/dL (6.6-8.7)
[2024-06-24 01:07] LABS: Folate Level 7.7 ng/mL (4.8-37.3)
--- NOTE | 2024-06-24 01:19 | PC.NURSE ---
Patients ptt came back at 65; patrol lady hospitalist Dr Perdomo advised to increase patients heparin drip 54.4 mL/hr and to recheck ptt in 4 hours. Also advised to call for new dosing orders if next ptt is not between 70-89. Next ptt has been ordered for 0400 due to time change difference.
[2024-06-24] MEDS: acetaminophen 325 mg Tablet 650 MG PO (03:52)
[2024-06-24 04:40] LABS: Partial Thromboplastin Time 79.8 SECONDS (23.9-36.7)
[2024-06-24] MEDS: heparin drip 25,000 UNIT/500 ML PREMIX 54.45 UNIT IV ×2 (07:04→16:20)
[2024-06-24] MEDS: amlodipine 5 mg Tablet 2.5 MG PO (08:31)
[2024-06-24] MEDS: buPROPion XL (24 HR) 300 mg Tablet PO (08:31)
[2024-06-24] MEDS: potassium chloride ER 20 mEq Tablet PO (08:31)
[2024-06-24] MEDS: PARoxetine 20 mg Tablet 40 MG PO (08:31)
[2024-06-24] MEDS: pantoprazole DR 40 mg Tablet PO (08:31)
[2024-06-24 09:42] LABS: Partial Thromboplastin Time 77.2 SECONDS (23.9-36.7)
--- NOTE | 2024-06-24 14:40 | P.PN_ITS ---
Subjective 2 Subjective: Patient states headache is slightly better today. Blurry vision is improving as well. Denies any nausea or vomiting. Able to tolerate diet. Medications: Reviewed: Yes Vitals/I&O/Wt Last Vital Signs Temp 98.0 F 06/24/24 08:00 Pulse 78 06/24/24 11:54 Resp 14 06/24/24 11:54 BP 123/79 06/24/24 11:54 Pulse Ox 96 06/24/24 11:54 O2 Del Method Room Air 06/24/24 11:54 06/23/24 06/24/24 06/24/24 23:59 06:59 14:59 Intake Total Balance Weight last 48 hrs Weight 186.381 kg Weight 187.016 kg Physical Exam 2 Narrative: General well-developed well-nourished obese female in no acute cardiopulmonary distress CV regular rate and rhythm Lungs clear to auscultation bilaterally Neck some fullness in the right neck mildly tender. Not hot and no fluctuance Neuro external ocular movements are intact pupils are equally round and reactive light accommodation smile is symmetric eye squint and opening also equal and symmetric Speech is clear she is alert and pleasant Data 06/24/24 00:22 06/24/24 00:22 A&P Assessment and plan (1) Internal jugular (IJ) vein thromboembolism, acute: Associated with right hemithorax port. Case discussed with oncology on admission. Continue with heparin drip for now. Plan to continue heparin drip for at least 72 hours. Continue heparin drip maintaining PTT around 80. Will plan for port removal. Will consult surgery. Patient is agreeable. N.p.o. after midnight. Plan to stop heparin drip periprocedural as per surgical recommendations. (2) Headache: Most likely in setting of dural venous sinus thrombosis. Continue with Tylenol as needed. Can add tramadol 50 mg every 6 hours as needed. (3) Port-A-Cath in place: (4) Dural venous sinus thrombosis: Care discussed in detail with neurointerventionalist at [facility]. After reviewing the images they suggest for continuing of heparin drip while monitoring patient's. If patient has worsening headaches, changes in her visions plan for repeat CT and then possible transfer for thrombus extraction. They suggest early port removal. (5) Primary infiltrating ductal carcinoma of upper-outer quadrant of left breast in female: On chemotherapy. Follows up with outpatient oncologist. Plan Hypertension: Goal blood pressure less than 140/90 mmHg. Hold off on home dose of hydrochlorothiazide for now. Full code Carb consistent diet. N.p.o. after midnight. Heparin will be sufficient for DVT prophylaxis Protonix for PUD prophylaxis Attestations 2 Medical Necessity Statement*: requires further hospitalization for management of right IJ thrombosis with port in place with concerns for right transverse venous sinus thrombosis Diagnoses Internal jugular (IJ) vein thromboembolism, acute I82.C19 Headache R51.9 Port-A-Cath in place Z95.828 Dural venous sinus thrombosis G08 Primary infiltrating ductal carcinoma of upper-outer quadrant of left breast in female C50.412
[2024-06-24] MEDS: ondansetron 2 mg/ML SDV 2 mL 4 MG IVP (14:41)
[2024-06-24] MEDS: scopolamine 1.5 Patch 1 PATCH TRANSDERMA (15:47)
[2024-06-24 16:06] LABS: Partial Thromboplastin Time 79.7 SECONDS (23.9-36.7)
--- NOTE | 2024-06-24 16:25 | P.CONIM_ITS ---
Providers/Reason For Consult 2 Consulting Physician/Specialty*: General Surgery Reason for Consult*: Removal of Port-A-Cath Attending Physician: Hill Dao MD Primary Care Provider: Jennifer Duong APN History of Present Illness History of Present Illness Ara Stephen is a 49 year old female who has metastatic breast cancer, is currently receiving chemotherapy. She had a Port-A-Cath on the right upper chest, this was placed in the outside institution. She presented to hospital recently with right neck pain laboratory and imaging studies show evidence of thrombosis of the right jugular vein as well as thrombosis of the cavernous system at the level of the brain. Primary team has discussed the patient with vascular surgery and neurosurgery in outside hospital who recommended removal of the port. I was consulted for this. Review of Systems 2 General: Reports: 10 or more systems reviewed and unremarkable except in HPI and below Medications/Allergies Home Medications Medication Instructions Recorded Confirmed Last Taken Type bupropion HCl 300 mg 24 hr tablet, 300 mg PO DAILY 02/22/24 06/22/24 06/21/24 History extended release diclofenac sodium 75 mg 75 mg PO DAILY 02/22/24 06/22/24 Unknown History tablet,delayed release hydrochlorothiazide 25 mg tablet 25 mg PO DAILY 02/22/24 06/22/24 Unknown History paroxetine HCl 40 mg tablet 40 mg PO DAILY 02/22/24 06/22/24 06/21/24 History spironolactone 50 mg tablet 50 mg PO DAILY 02/22/24 06/22/24 06/21/24 History dexamethasone 4 mg tablet 8 mg (2 x 4 mg) PO BID #30 tabs 04/02/24 06/22/24 Unknown Rx lorazepam 1 mg tablet 0.5 - 1 mg (0.5 - 1 x 1 mg) PO Q6H 04/02/24 06/22/24 Unknown Rx PRN severe nausea #30 tabs prochlorperazine maleate 10 mg 10 mg PO Q6H PRN mild nausea and 04/02/24 06/22/24 Unknown Rx tablet vomiting #30 tabs diphenoxylate-atropine 2.5 1 tab PO Q6H PRN severe diarrhea 04/25/24 06/22/24 Unknown Rx mg-0.025 mg tablet (Lomotil) #30 tabs ondansetron 8 mg disintegrating 8 mg PO Q8H PRN nausea and 05/03/24 06/22/24 Unknown Rx tablet vomiting #30 tabs potassium chloride 20 mEq 20 meq PO BID #60 tabs 05/09/24 06/22/24 06/21/24 Rx tablet,extended release acyclovir 400 mg tablet 400 mg PO TID #21 tabs 05/16/24 06/22/24 Unknown Rx diclofenac sodium 75 mg PO BEDTIME PRN arthritis 06/23/24 06/23/24 Unknown History Allergies Allergy/AdvReac Type Severity Reaction Status Date / Time avocado Allergy ALGY-Swell Verified 06/21/24 09:04 Lip/Tongue/Throat Current Medications Generic Name Dose Route Start Last Admin Trade Name Freq PRN Reason Stop Dose Admin Acetaminophen 650 mg 06/21/24 16:58 06/24/24 03:52 Acetaminophen 325 Mg Tablet PO 650 mg Q6H PRN Administration Mild/Mod Pain Or Temp >/= 101 Hydrocodone Bitart/Acetaminophen 1 tab 06/21/24 16:58 06/24/24 15:46 Hydrocodone-Acetaminophen 5-325 Mg Tablet PO 1 tab Q4H PRN Administration MODERATE TO SEVERE PAIN Amlodipine Besylate 2.5 mg 06/22/24 17:33 06/24/24 08:31 Amlodipine 5 Mg Tablet PO 2.5 mg DAILY SUE Administration Bupropion HCl 300 mg 06/23/24 10:35 06/24/24 08:31 Bupropion Xl (24 Hr) 300 Mg Tablet PO 300 mg DAILY SUE Administration Heparin Sodium/Sodium Chloride 25,000 unit in 500 mls @ 0 mls/hr 06/21/24 17:45 06/24/24 07:04 Heparin Drip IV 14.85 unit/kg/hr CONT SUE 54.45 mls/hr Administration Protocol Per Protocol Ondansetron HCl 4 mg 06/23/24 14:00 06/24/24 14:41 Ondansetron 2 Mg/Ml Sdv 2 Ml IVP 4 mg Q6H PRN Administration vomiting, or N/V if npo Pantoprazole Sodium 40 mg 06/22/24 09:00 06/24/24 08:[address] 40 Mg Tablet PO 40 mg DAILY SUE Administration Paroxetine HCl 40 mg 06/24/24 09:00 06/24/24 08:31 Paroxetine 20 Mg Tablet PO 40 mg DAILY SUE Administration Potassium Chloride 20 meq 06/22/24 11:15 06/24/24 08:31 Potassium Chloride Er 20 Meq Tablet PO 20 meq DAILY SUE Administration Scopolamine 1 patch 06/24/24 15:30 06/24/24 15:47 Scopolamine 1.5 Patch TRANSDERMA 1 patch Q3D SUE Administration PFSH Acute 2 PFSH: Medical History (Updated 06/24/24 @ 14:41 by Hill Dao MD) Breast cancer Surgical History (Updated 06/21/24 @ 17:28 by Carlito Ventura DO) Port-A-Cath in place Hx of tubal ligation 1997 Hx of cholecystectomy 2012 Hx of hernia repair 2014 Family History Father Hypertension Diabetes Mother Hypertension Diabetes Social History Smoking and tobacco/nicotine status: former use of tobacco/nicotine Quit status (tobacco/nicotine): has quit using Former quit date comment: Previously smoked 1 pack per week; quit 30 yrs ago. Second hand smoke exposure: No Alcohol intake: current Substance/Drug Use: never Lives independently: Yes Household members: spouse Housing: Manufactured/Mobile home Marital status: Number of children: 3 Highest education level completed: Some College, No Degree Pets and animals: Yes Pets & animals: cat(s), dog(s) and guinea pig(s) Vitals/I&O/Wt Last Vital Signs Temp 98.0 F 06/24/24 08:00 Pulse 78 06/24/24 15:47 Resp 14 06/24/24 11:54 BP 123/79 06/24/24 15:47 Pulse Ox 96 06/24/24 11:54 O2 Del Method Room Air 06/24/24 11:54 06/24/24 06/24/24 06/24/24 06:59 14:59 22:59 Intake Total Balance Weight last 48 hrs Weight 410 lb 14.4 oz Weight 412 lb 4.8 oz Physical Exam 2 Neck/C-Spine: OTHER: There are some tenderness in the right neck, on the right upper chest there is a port, currently is accessed and receiving heparin drip through the port. No evidence of superficial infection. Data 06/24/24 00:22 06/24/24 00:22 A&P Assessment and plan (1) Internal jugular (IJ) vein thromboembolism, acute: (2) Port-A-Cath in place: Plan After complete history, physical examination and review of all available clinical data the following is my assessment. I agree that excision of the Port-A-Cath is indicated in this case. I have discussed with the patient all risk and benefits of the procedure including the risk of worsening thrombosis, migration of the clot, fracture of the clot, need for additional interventions, bleeding, infection of the surgical site, bleeding of the surgical site, poor wound healing. I have also explained to the patient that in the case of needing a new port she will likely have to wait about 4 to 6 weeks before having 1 done, she may need an alternative access for chemotherapy. We will proceed with excision of Port-A-Cath tomorrow. We will stop heparin drip in a.m. tomorrow. -N.p.o. after midnight -Have discussed with nursing staff regarding giving patient IV access as the port will be removed -Stop heparin drip 6 AM tomorrow Coding Level of Care Code Acute Code for Chg Fwd Diagnoses Internal jugular (IJ) vein thromboembolism, acute I82.C19 Port-A-Cath in place Z95.828
[2024-06-24 21:37] LABS: Partial Thromboplastin Time 75.5 SECONDS (23.9-36.7)
--- NOTE | 2024-06-24 22:57 | PC.NURSE ---
PTT RESULT contacted night hospitalist Dr. Perdomo with newest ptt result of 75.5, verbal instruction over phone given to maintain current rate with recheck to be taken with morning labs at 3am.
[2024-06-25] VITALS (18 sets, daily range): BP systolic 101–162; BP diastolic 61–92; PULSE 67–95; RESP 14–20; TEMP 36.1–37.6; O2SAT 90–96
[2024-06-25] MEDS: HYDROcodone-acetaminophen 5-325 mg Tablet 1 TAB PO ×5 (00:12→21:17)
[2024-06-25] MEDS: heparin drip 25,000 UNIT/500 ML PREMIX 54.45 UNIT IV (01:02)
[2024-06-25 03:28] LABS: Basophils % 0.6 %; Hematocrit 31.7 % (36-47); Lymphocytes # 1.8 10^3/uL (0.8-4.8); Lymphocytes % 25.8 %; Mean Corpuscular HGB Conc 31.9 g/dL (30-55); Mean Corpuscular Hemoglobin 30.6 pg (27-33); Mean Corpuscular Volume 96.1 fl (85-98); Mean Platelet Volume 9.7 fL (7.4-10.4); Monocytes # 0.6 10^3/uL (0.2-0.9); Monocytes % 8.2 %; Neutrophils # 4.44 10^3/uL (1.8-7.7); Neutrophils % 64.1 %; Nucleated Red Blood Cells % 0.3 %; Platelet Count 223 10^3/cmm (157-399); Red Cell Distribution Width 21.8 % (12.1-15.1); White Blood Count 6.93 10^3/uL (3.29-11.43)
[2024-06-25 03:59] LABS: Magnesium 1.4 mg/dL (1.7-2.3)
--- NOTE | 2024-06-25 04:05 | PC.NURSE ---
HEPARIN TITRATION contacted Dr Perdomo with PTT result of 86. hospitalist gave order for gtt to be titrated down from 54.45 ml/hr to 50 ml/hr. iv pump titrated per orders.
[2024-06-25 04:13] LABS: Alanine Aminotransferase 26 U/L (0-33); Albumin Level 3.7 g/dL (3.5-5.2); Alkaline Phosphatase 65 U/L (35-105); Anion Gap 14.6 (5-19); Aspartate Amino Transferase 19 U/L (0-32); Blood Urea Nitrogen 8 mg/dL (6-20); Carbon Dioxide 27 mmol/L (22-29); Chloride 103 mmol/L (98-107); Globulin 2.9 g/dL (1.3-4.6); Glomerular Filtration Rate 76.2 mL/min (90-130); Glucose 114 mg/dL (65-115); Osmolality Calculated 291 mOsm/kg (285-295); Potassium 3.6 mmol/L (3.5-5.1); Sodium 141 mmol/L (136-145); Total Bilirubin 0.2 mg/dL (0.15-1.2); Total Protein 6.6 g/dL (6.6-8.7)
--- NOTE | 2024-06-25 07:05 | P.HPUD_ITS ---
Surgery/Procedure H&P Update DATE OF PROCEDURE: June 25, 2024 DATE H&P PERFORMED: 06/24/24 H&P UPDATE INFORMATION: I have reviewed H&P completed within last 30 days, I have examined patient prior to procedure, No changes to prior documentation and H&P is in [facility] EMR on date indicated
[2024-06-25] MEDS: potassium chloride ER 20 mEq Tablet PO (08:13)
[2024-06-25] MEDS: amlodipine 5 mg Tablet 2.5 MG PO (08:13)
[2024-06-25] MEDS: buPROPion XL (24 HR) 300 mg Tablet PO (08:13)
[2024-06-25] MEDS: pantoprazole DR 40 mg Tablet PO (08:13)
[2024-06-25] MEDS: PARoxetine 20 mg Tablet 40 MG PO (08:13)
[2024-06-25] MEDS: magnesium sulfate premix 4 GM/100 ML PREMIX IV (11:00)
--- NOTE | 2024-06-25 12:46 | PM.PN ---
Subjective Subjective: Headache has become milder, controlled with acetaminophen and hydrocodone. Nausea has improved with scopolamine patch. No further vision changes Vitals/I&O/Wt Last Vital Signs Temp 98.2 F 06/25/24 11:53 Pulse 71 06/25/24 11:53 Resp 18 06/25/24 11:53 BP 120/77 06/25/24 11:53 Pulse Ox 93 06/25/24 11:53 O2 Del Method Room Air 06/25/24 11:53 06/24/24 06/25/24 06/25/24 22:59 06:59 14:59 Intake Total 500 / 500 637.973 / 1137.973 205.833 / 205.833 Output Total 240 / 240 Balance 260 / 260 637.973 / 897.973 205.833 / 205.833 Weight last 48 hrs Weight 185.791 kg Weight 186.381 kg Physical Exam Narrative: Accompanied by her family. Const: COMMON NORMALS: patient oriented x3 and alert GENERAL APPEARANCE: cooperative NUTRITIONAL APPEARANCE: obese ORIENTATION/CONSCIOUSNESS: Yes awake HENMT: COMMON NORMALS: oropharynx normal Neck/C-Spine: COMMON NORMALS: no JVD Resp: COMMON NORMALS: normal respiratory effort and clear to auscultation bilaterally AUSCULTATION: clear to auscultation bilaterally Cardio: COMMON NORMALS: no JVD, regular rhythm, S1 normal heart sound present, S2 normal heart sound present and No murmurs present (Cardio) RHYTHM: regular rhythm HEART SOUNDS: S1 normal heart sound present and S2 normal heart sound present GI: COMMON NORMALS: Normal to inspection, nondistended, normoactive bowel sounds present, Soft to palpation and non-tender PALPATION: Yes Soft to palpation Extremity: COMMON NORMALS: no joint enlargement and no pedal edema Neuro: COMMON NORMALS: patient oriented x3 and moves all extremities SENSORIUM/ORIENTATION: Yes alert Skin: COMMON NORMALS: no rashes or lesions noted GENERAL SKIN EXAM: no rashes or lesions noted Data 06/25/24 03:12 06/25/24 03:12 A&P Assessment and plan (1) Internal jugular (IJ) vein thromboembolism, acute: Reviewed vitals, CBC, PTT, CMP. Reviewed surgery note, pending port extraction at noon today. Discussed with nursing, family independence case manager, patient and family. She states she is doing well, anticipating procedure. Continue anticoagulation. Monitor for risk of bleeding with therapeutic anticoagulant, monitor PTT, blood counts. Monitor for any bleeding signs. Associated with right hemithorax port. Case discussed with oncology on admission. Continue with heparin drip for now. Plan to continue heparin drip for at least 72 hours. Continue heparin drip maintaining PTT around 80. (2) Headache: So far improved with acetaminophen, hydrocodone. Nausea improved with scopolamine patch. Continued headache for last 12 hours. Given some changes in vision of right eye there is a concern for dural sinus thrombosis. Will plan for CT venogram. (3) Port-A-Cath in place: (4) Dural venous sinus thrombosis: (5) Primary infiltrating ductal carcinoma of upper-outer quadrant of left breast in female: Plan Hypomagnesemia: Magnesium reviewed, 1.4. Requested for gram magnesium replacement. Recheck level. Reviewed potassium is okay 3.6. Repeat chemistry. Full code Carb consistent diet Heparin will be sufficient for DVT prophylaxis Protonix for PUD prophylaxis Attestations Medical Necessity Statement*: Continue admission for assessment of management of internal jugular vein thrombus, venous Port-A-Cath thrombotic complication, removal of port, anticoagulation, and a lady with underlying breast cancer. and High MDM includes amount and/or complexity of data reviewed/ordered [ previous or external records, resulted lab(s)/test(s) and other healthcare professional discussion] and described risk of complication, morbidity or mortality of management as documented Diagnoses Internal jugular (IJ) vein thromboembolism, acute I82.C19 Headache R51.9 Port-A-Cath in place Z95.828 Dural venous sinus thrombosis G08 Primary infiltrating ductal carcinoma of upper-outer quadrant of left breast in female C50.412
--- NOTE | 2024-06-25 13:48 | P.ANESASSM_ITS ---
Pre-Anesthetic Assessment Height/Weight: Height 1.7 m Weight 185.791 kg Temp Pulse Resp BP Pulse Ox O2 Del Method 98.2 F 71 18 120/77 93 Room Air 06/25/24 11:53 06/25/24 11:53 06/25/24 11:53 06/25/24 11:53 06/25/24 11:53 06/25/24 11:53 Operation Date: 06/25/24 13:20 Proposed Procedures p Portacath Removal(Not Applicable) - Zain Ambriz MD Familial anesthetic complications: None Was Beta Sherry taken within 24 hours: N/A Was Clonidine taken within 24 hours: N/A Last intake: Intake Last Liquid Date 06/24/24 Last Liquid Time 23:45 Last Solid Date 06/24/24 Last Solid Time 18:00 Social No alcohol and No tobacco Exam alert, oriented x 3, clear to auscultation bilaterally and regular rate & rhythm Airway Mallampati: Class II Dentition: full [facility] breast cancer Anesthetic Plan ASA status: 3 Anesthesia: MAC Risk of > 500 ml blood loss (7ml/kg in children): No Medications/Allergies Home Medications Medication Instructions Recorded Confirmed Last Taken Type bupropion HCl 300 mg 24 hr tablet, 300 mg PO DAILY 02/22/24 06/22/24 06/21/24 History extended release diclofenac sodium 75 mg 75 mg PO DAILY 02/22/24 06/22/24 Unknown History tablet,delayed release hydrochlorothiazide 25 mg tablet 25 mg PO DAILY 02/22/24 06/22/24 Unknown History paroxetine HCl 40 mg tablet 40 mg PO DAILY 02/22/24 06/22/24 06/21/24 History spironolactone 50 mg tablet 50 mg PO DAILY 02/22/24 06/22/24 06/21/24 History dexamethasone 4 mg tablet 8 mg (2 x 4 mg) PO BID #30 tabs 04/02/24 06/22/24 Unknown Rx lorazepam 1 mg tablet 0.5 - 1 mg (0.5 - 1 x 1 mg) PO Q6H 04/02/24 06/22/24 Unknown Rx PRN severe nausea #30 tabs prochlorperazine maleate 10 mg 10 mg PO Q6H PRN mild nausea and 04/02/24 06/22/24 Unknown Rx tablet vomiting #30 tabs diphenoxylate-atropine 2.5 1 tab PO Q6H PRN severe diarrhea 04/25/24 06/22/24 Unknown Rx mg-0.025 mg tablet (Lomotil) #30 tabs ondansetron 8 mg disintegrating 8 mg PO Q8H PRN nausea and 05/03/24 06/22/24 Unknown Rx tablet vomiting #30 tabs potassium chloride 20 mEq 20 meq PO BID #60 tabs 05/09/24 06/22/24 06/21/24 Rx tablet,extended release acyclovir 400 mg tablet 400 mg PO TID #21 tabs 05/16/24 06/22/24 Unknown Rx diclofenac sodium 75 mg PO BEDTIME PRN arthritis 06/23/24 06/23/24 Unknown History Allergies Allergy/AdvReac Type Severity Reaction Status Date / Time avocado Allergy ABHIJEET-Clevell Verified 06/21/24 09:04 Lip/Tongue/Throat Current Medications Generic Name Dose Route Start Last Admin Trade Name Freq PRN Reason Stop Dose Admin Acetaminophen 650 mg 06/21/24 16:58 06/24/24 03:52 Acetaminophen 325 Mg Tablet PO 650 mg Q6H PRN Administration Mild/Mod Pain Or Temp >/= 101 Hydrocodone Bitart/Acetaminophen 1 tab 06/21/24 16:58 06/25/24 09:46 Hydrocodone-Acetaminophen 5-325 Mg Tablet PO 1 tab Q4H PRN Administration MODERATE TO SEVERE PAIN Amlodipine Besylate 2.5 mg 06/22/24 17:33 06/25/24 08:13 Amlodipine 5 Mg Tablet PO 2.5 mg DAILY SUE Administration Bupropion HCl 300 mg 06/23/24 10:35 06/25/24 08:13 Bupropion Xl (24 Hr) 300 Mg Tablet PO 300 mg DAILY SUE Administration Heparin Sodium/Sodium Chloride 25,000 unit in 500 mls @ 0 mls/hr 06/21/24 17:45 06/25/24 08:10 Heparin Drip IV 0 unit/kg/hr CONT SUE 0 mls/hr Titration Protocol Per Protocol Ondansetron HCl 4 mg 06/23/24 14:00 06/24/24 14:41 Ondansetron 2 Mg/Ml Sdv 2 Ml IVP 4 mg Q6H PRN Administration vomiting, or N/V if npo Pantoprazole Sodium 40 mg 06/22/24 09:00 06/25/24 08:[address] 40 Mg Tablet PO 40 mg DAILY SUE Administration Paroxetine HCl 40 mg 06/24/24 09:00 06/25/24 08:13 Paroxetine 20 Mg Tablet PO 40 mg DAILY SUE Administration Potassium Chloride 20 meq 06/22/24 11:15 06/25/24 08:13 Potassium Chloride Er 20 Meq Tablet PO 20 meq DAILY SUE Administration Scopolamine 1 patch 06/24/24 15:30 06/24/24 15:47 Scopolamine 1.5 Patch TRANSDERMA 1 patch Q3D SUE Administration [facility] Anesthesia Medical History (Updated 06/24/24 @ 14:41 by Hill Dao MD) Breast cancer Surgical History (Updated 06/21/24 @ 17:28 by Carlito Ventura DO) Port-A-Cath in place Hx of tubal ligation 1997 Hx of cholecystectomy 2012 Hx of hernia repair 2014 Family History Father Hypertension Diabetes Mother Hypertension Diabetes Social History Smoking and tobacco/nicotine status: former use of tobacco/nicotine Quit status (tobacco/nicotine): has quit using Former quit date comment: Previously smoked 1 pack per week; quit 30 yrs ago. Second hand smoke exposure: No Alcohol intake: current Substance/Drug Use: never Lives independently: Yes Household members: spouse Housing: Manufactured/Mobile home Marital status: Number of children: 3 Highest education level completed: Some College, No Degree Pets and animals: Yes Pets & animals: cat(s), dog(s) and guinea pig(s) Data Anesthesia 06/25/24 03:12 06/25/24 03:12 Short CBC 06/24/24 06/25/24 Range/Units 00:22 03:12 WBC 8.59 6.93 (3.29-11.43) 10^3/uL Hgb 9.80 L 10.10 L (11.27-16.99) g/dL Hct 30.6 L 31.7 L (36-47) % MCV 95.3 96.1 (85-98) fl Plt Count 195 223 (157-399) 10^3/cmm Neut % (Auto) 72.6 64.1 % Neut # (Auto) 6.24 4.44 (1.8-7.7) 10^3/uL BMP 06/24/24 06/25/24 00:22 03:12 Sodium 140 141 Potassium 3.3 L 3.6 Chloride 103 103 Carbon Dioxide 28 27 BUN 7 8 Creatinine 0.8 0.8 Glucose 144 H 114 Calcium 8.9 9.0 Liver Function 06/24/24 06/25/24 Range/Units 00:22 03:12 Total Bilirubin 0.2 0.2 (0.15-1.2) mg/dL AST 17 19 (0-32) U/L ALT 27 26 (0-33) U/L Alkaline Phosphatase 66 65 (35-105) U/L Albumin 3.6 3.7 (3.5-5.2) g/dL Coags 06/23/24 06/24/24 06/24/24 17:26 00:22 04:07 APTT 50.0 H 65.1 H 79.8 H 06/24/24 06/24/24 06/24/24 09:04 15:36 21:04 APTT 77.2 H 79.7 H 75.5 H 06/25/24 03:12 APTT 86.0 H Cardiac Studies: 2 Echocardiogram 03/30/24
[2024-06-25] MEDS: sodium chloride 0.9% 1,000 ML 30 ML IV (13:57)
[2024-06-25] MEDS: BUPivacaine 0.25% INJ 10 mL INJECTION (14:30)
[2024-06-25] MEDS: lidocaine-epi 1% PF 1:200,000 30 mL SDV INJECTION (14:30)
--- NOTE | 2024-06-25 14:38 | PM.OP ---
Operative Report Date of procedure: June 25, 2024 Pre-op diagnosis: Thrombosed right IJ Post-op diagnosis: Same Post-op findings: No evidence of infection at the level of the Port-A-Cath, patient showed increased oozing due to history of heparin drip Procedure done: excision of Port-A-Cath Specimens removed/disposition: port-a-cath Surgeon: Zain Ambriz MD Complications: none Brief History: 49-year-old female with history of breast cancer being treated with chemotherapy, has a right subclavian Port-A-Cath, she was noted to have thrombosis of the right IJ and right cavernous sinus, after discussion with outside hospital they recommended excision of the Port-A-Cath I was consulted for this. After discussion risk and benefits we decided to proceed. Procedure: Patient was brought into the OR, placed in a supine position. Moderate analgesia and sedation was given. The upper chest was prepped and draped in the usual sterile fashion. A timeout was conducted. I then proceeded to make a 4 cm incision overlying the previous surgical incision at the level of the upper chest. The incision was deepened to the subcutaneous tissue with electrocautery until the Port-A-Cath was identified. The Port-A-Cath was delivered through the skin and excised completely. Pressure was held at the level of the subclavian vein to prevent backbleeding, I then obliterated the tract using a #3-0 Vicryl. Hemostasis was achieved with a combination of electrocautery and additional 3-0 Vicryl [id number] sutures. The wound was irrigated. The wound was then closed in layers using #3-0 Vicryl for the subcutaneous tissue #4 Monocryl for the skin. Dermabond was applied and over the Dermabond and a compressive dressing was applied. Patient tolerated well the procedure was transferred to the PACU in stable condition. All counts were correct at the end of the procedure.
--- NOTE | 2024-06-25 14:40 | ANE.PACU2 ---
Inpatient post-anesthesia follow up: Airway intact: Yes Vital signs: Temperature 98.6 F Pulse Rate 92 Respiratory Rate 20 Blood Pressure 162/83 Pulse Oximetry 95 Oxygen Delivery Me thod Room Air Oxygen Flow Rate 10 Fraction of Inspir ed Oxygen Hydration adequate: Yes Nausea and vomiting: No Pain level: 1 Mental status: Baseline
--- NOTE | 2024-06-25 15:34 | PC.NURSE ---
1500 - report given to Asha at bedside - vss - dressing c/d/i - temp 97.7
[2024-06-26] VITALS (8 sets, daily range): BP systolic 115–146; BP diastolic 69–80; PULSE 77–84; RESP 16–17; TEMP 36.7–37.2; O2SAT 91–97
[2024-06-26 06:02] LABS: Basophils % 0.6 %; Hematocrit 32.2 % (36-47); Lymphocytes # 1.3 10^3/uL (0.8-4.8); Mean Platelet Volume 9.6 fL (7.4-10.4); Monocytes # 0.6 10^3/uL (0.2-0.9); Monocytes % 9.6 %; Neutrophils # 4.28 10^3/uL (1.8-7.7); Neutrophils % 68.7 %; Nucleated Red Blood Cells % 0 %; Platelet Count 239 10^3/cmm (157-399); Red Blood Count 3.32 10^6/uL (3.85-5.65); Red Cell Distribution Width 21.9 % (12.1-15.1); White Blood Count 6.24 10^3/uL (3.29-11.43)
[2024-06-26 06:21] LABS: Anion Gap 15.9 (5-19); Blood Urea Nitrogen 11 mg/dL (6-20); Calcium 8.9 mg/dL (8.5-10.5); Carbon Dioxide 26 mmol/L (22-29); Chloride 101 mmol/L (98-107); Creatinine Clr Calc Pharmacy 149.4311; Glomerular Filtration Rate 76.2 mL/min (90-130); Glucose 122 mg/dL (65-115); Osmolality Calculated 289 mOsm/kg (285-295); Potassium 3.9 mmol/L (3.5-5.1); Sodium 139 mmol/L (136-145)
[2024-06-26 06:24] LABS: Magnesium 1.8 mg/dL (1.7-2.3)
[2024-06-26] MEDS: HYDROcodone-acetaminophen 5-325 mg Tablet 1 TAB PO ×2 (06:37→14:31)
--- NOTE | 2024-06-26 07:32 | P.PN_ITS ---
Subjective 2 Subjective: Postoperative day 1 status post excision of Port-A-Cath. Patient doing well, no evidence of hematoma under the skin. Vitals/I&O/Wt Last Vital Signs Temp 98.0 F 06/26/24 07:23 Pulse 77 06/26/24 07:23 Resp 16 06/26/24 07:23 BP 143/76 06/26/24 07:23 Pulse Ox 92 06/26/24 07:23 O2 Del Method Room Air 06/26/24 07:23 O2 Flow Rate 10 06/25/24 14:48 06/25/24 06/26/24 06/26/24 22:59 06:59 14:59 Intake Total 1219.5 / 1575.333 20 / 1595.333 Balance 1219.5 / 1570.333 20 / 1590.333 Weight last 48 hrs Weight 409 lb 9.6 oz Weight 409 lb 9.6 oz Physical Exam 2 Chest: OTHER: In the right upper chest there is a surgical wound that is covered with Dermabond, no evidence of hematoma Data 06/26/24 05:26 06/26/24 05:26 A&P Assessment and plan (1) Internal jugular (IJ) vein thromboembolism, acute: Plan Good progression after removal of the Port-A-Cath. No evidence of bleeding or hematoma formation over the last 12 hours. Patient can return to therapeutic anticoagulation if required by primary team. At this point general surgery will sign off, patient can follow-up in our clinic in 2 weeks for wound check. Attestations 2 Medical Necessity Statement*: Per medical team Coding Level of Care Code Acute Code for [facility] Fwd Diagnoses Internal jugular (IJ) vein thromboembolism, acute I82.C19
[2024-06-26] MEDS: amlodipine 5 mg Tablet 2.5 MG PO (09:20)
[2024-06-26] MEDS: PARoxetine 20 mg Tablet 40 MG PO (09:21)
[2024-06-26] MEDS: potassium chloride ER 20 mEq Tablet PO (09:21)
[2024-06-26] MEDS: pantoprazole DR 40 mg Tablet PO (09:21)
[2024-06-26] MEDS: buPROPion XL (24 HR) 300 mg Tablet PO (09:24)
[2024-06-26 10:59] LABS: Partial Thromboplastin Time 25.4 SECONDS (23.9-36.7)
[2024-06-26] MEDS: heparin 5,000 unit/mL INJ 1 mL IVP (11:28)
[2024-06-26] MEDS: heparin drip 25,000 UNIT/500 ML PREMIX 52 UNIT IV ×2 (11:31→20:40)
[2024-06-26 18:22] LABS: Partial Thromboplastin Time 68.3 SECONDS (23.9-36.7)
--- NOTE | 2024-06-26 19:38 | PM.PN ---
Vitals/I&O/Wt Last Vital Signs Temp 98.7 F 06/26/24 16:00 Pulse 81 06/26/24 16:00 Resp 16 06/26/24 11:43 BP 146/80 06/26/24 16:00 Pulse Ox 91 06/26/24 16:00 O2 Del Method Room Air 06/26/24 16:00 O2 Flow Rate 10 06/25/24 14:48 06/26/24 06/26/24 06/26/24 06:59 14:59 22:59 Intake Total 1595.333 720 / 720 900.334 / 1620.334 Balance 1590.333 720 / 720 900.334 / 1620.334 Weight last 48 hrs Weight 184.884 kg Weight 185.791 kg Weight 185.791 kg Physical Exam Narrative: Accompanied by her family. Const: COMMON NORMALS: patient oriented x3 and alert GENERAL APPEARANCE: cooperative NUTRITIONAL APPEARANCE: obese ORIENTATION/CONSCIOUSNESS: Yes awake HENMT: COMMON NORMALS: oropharynx normal Neck/C-Spine: COMMON NORMALS: no JVD Resp: COMMON NORMALS: normal respiratory effort and clear to auscultation bilaterally AUSCULTATION: clear to auscultation bilaterally Cardio: COMMON NORMALS: no JVD, regular rhythm, S1 normal heart sound present, S2 normal heart sound present and No murmurs present (Cardio) RHYTHM: regular rhythm HEART SOUNDS: S1 normal heart sound present and S2 normal heart sound present GI: COMMON NORMALS: Normal to inspection, nondistended, normoactive bowel sounds present, Soft to palpation and non-tender PALPATION: Yes Soft to palpation Extremity: COMMON NORMALS: no joint enlargement and no pedal edema Neuro: COMMON NORMALS: patient oriented x3 and moves all extremities SENSORIUM/ORIENTATION: Yes alert Skin: COMMON NORMALS: no rashes or lesions noted GENERAL SKIN EXAM: no rashes or lesions noted Data 06/26/24 05:26 06/26/24 05:26 Micro: Microbiology 06/21/24 17:35 Blood Culture - Final Blood NO GROWTH AFTER 5 DAYS A&P Assessment and plan (1) Internal jugular (IJ) vein thromboembolism, acute: She is doing well after removal of Port-A-Cath. Reviewed vitals, CBC, PTT, BMP, magnesium, reviewed surgery note. Resumed heparin drip. Monitor for risk of bleeding. Monitor PTT. Discussed with correctional counselor/case manager, nursing. Discussed with her continue anticoagulation with heparin over the next 48 hours with anticipated transition to oral anticoagulant. Continue anticoagulation. Monitor for risk of bleeding with therapeutic anticoagulant, monitor PTT, blood counts. Monitor for any bleeding signs. Associated with right hemithorax port. Case discussed with oncology on admission. Continue with heparin drip for now. Plan to continue heparin drip for at least 72 hours. Continue heparin drip maintaining PTT around 80. (2) Headache: So far Resolved at least at rest. Nausea improved with scopolamine patch. Continued headache for last 12 hours. Given some changes in vision of right eye there is a concern for dural sinus thrombosis. Will plan for CT venogram. (3) Port-A-Cath in place: (4) Dural venous sinus thrombosis: (5) Primary infiltrating ductal carcinoma of upper-outer quadrant of left breast in female: Plan Hypomagnesemia: Magnesium reviewed, 1.8. Requested magnesium supplementation. Recheck level. Reviewed potassium is okay 3.6. Repeat chemistry. Full code Carb consistent diet Heparin will be sufficient for DVT prophylaxis Protonix for PUD prophylaxis Attestations Medical Necessity Statement*: Continue admission for assessment of management of internal jugular vein thrombus, venous Port-A-Cath thrombotic complication, resumption of anticoagulation, in a lady with underlying breast cancer. and High MDM includes amount and/or complexity of data reviewed/ordered [ previous or external records, resulted lab(s)/test(s), ordered lab(s)/test(s) and other healthcare professional discussion] and described risk of complication, morbidity or mortality of management as documented Diagnoses Internal jugular (IJ) vein thromboembolism, acute I82.C19 Headache R51.9 Port-A-Cath in place Z95.828 Dural venous sinus thrombosis G08 Primary infiltrating ductal carcinoma of upper-outer quadrant of left breast in female C50.412
[2024-06-26 19:42] LABS: Vitamin B12 > 2000 pg/mL (232-1245)
[2024-06-26] MEDS: magnesium sulfate premix 2 GM/50 ML PIGGYBACK IV (20:39)
[2024-06-27] VITALS (10 sets, daily range): BP systolic 119–132; BP diastolic 71–85; PULSE 81–93; RESP 14–18; TEMP 36.4–36.9; O2SAT 92–95; BMI 63.1
[2024-06-27 00:19] LABS: Partial Thromboplastin Time 67.7 SECONDS (23.9-36.7)
[2024-06-27] MEDS: heparin drip 25,000 UNIT/500 ML PREMIX 52 UNIT IV ×2 (06:01→15:30)
[2024-06-27 07:04] LABS: Basophils % 0.5 %; Eosinophils % 0.1 %; Hematocrit 34.2 % (36-47); Lymphocytes # 2.1 10^3/uL (0.8-4.8); Mean Corpuscular HGB Conc 32.2 g/dL (30-55); Mean Corpuscular Hemoglobin 31.5 pg (27-33); Monocytes # 0.6 10^3/uL (0.2-0.9); Neutrophils # 4.61 10^3/uL (1.8-7.7); Neutrophils % 61.9 %; Nucleated Red Blood Cells % 0.3 %; Platelet Count 280 10^3/cmm (157-399); Red Blood Count 3.49 10^6/uL (3.85-5.65); Red Cell Distribution Width 22.5 % (12.1-15.1); White Blood Count 7.46 10^3/uL (3.29-11.43)
[2024-06-27 07:09] LABS: Partial Thromboplastin Time 66.3 SECONDS (23.9-36.7)
[2024-06-27 07:25] LABS: Anion Gap 12.6 (5-19); Blood Urea Nitrogen 11 mg/dL (6-20); Calcium 8.8 mg/dL (8.5-10.5); Carbon Dioxide 26 mmol/L (22-29); Chloride 103 mmol/L (98-107); Glomerular Filtration Rate 88.9 mL/min (90-130); Glucose 119 mg/dL (65-115); Magnesium 1.8 mg/dL (1.7-2.3); Osmolality Calculated 287 mOsm/kg (285-295); Potassium 3.6 mmol/L (3.5-5.1); Sodium 138 mmol/L (136-145)
[2024-06-27] MEDS: HYDROcodone-acetaminophen 5-325 mg Tablet 1 TAB PO ×2 (08:04→15:29)
[2024-06-27] MEDS: ondansetron 2 mg/ML SDV 2 mL 4 MG IVP (08:04)
[2024-06-27] MEDS: buPROPion XL (24 HR) 300 mg Tablet PO (08:49)
[2024-06-27] MEDS: PARoxetine 20 mg Tablet 40 MG PO (08:49)
[2024-06-27] MEDS: amlodipine 5 mg Tablet 2.5 MG PO (08:49)
[2024-06-27] MEDS: pantoprazole DR 40 mg Tablet PO (08:49)
[2024-06-27] MEDS: potassium chloride ER 20 mEq Tablet PO (08:51)
[2024-06-27 14:23] LABS: Partial Thromboplastin Time 69.5 SECONDS (23.9-36.7)
[2024-06-27] MEDS: scopolamine 1.5 Patch 1 PATCH TRANSDERMA (15:30)
--- NOTE | 2024-06-27 19:12 | P.PN_ITS ---
Subjective 2 Subjective: She reports she is doing better today. No headache. No additional new symptoms. Vitals/I&O/Wt Last Vital Signs Temp 98.4 F 06/27/24 16:00 Pulse 84 06/27/24 16:00 Resp 18 06/27/24 16:00 BP 132/75 06/27/24 16:00 Pulse Ox 93 06/27/24 16:00 O2 Del Method Room Air 06/27/24 16:00 O2 Flow Rate 10 06/25/24 14:48 06/27/24 06/27/24 06/27/24 06:59 14:59 22:59 Intake Total 966.200 / 2692.001 1132.4 / 1132.4 720.733 / 1853.133 Balance 966.200 / 2692.001 1132.4 / 1132.4 720.733 / 1853.133 Weight last 48 hrs Weight 183 kg Weight 183 kg Weight 184.884 kg Weight 185.791 kg Physical Exam 2 Narrative: Accompanied by her family. Const: COMMON NORMALS: patient oriented x3 and alert GENERAL APPEARANCE: c ooperative NUTRITIONAL APPEARANCE: obese ORIENTATION/CONSCIOUSNESS: Yes awake HENMT: COMMON NORMALS: oropharynx normal Neck/C-Spine: COMMON NORMALS: no JVD Chest: OTHER: Right chest wound healing well post port explantation. No bleeding or drainage. Resp: COMMON NORMALS: normal respiratory effort and clear to auscultation bilaterally AUSCULTATION: clear to auscultation bilaterally Cardio: COMMON NORMALS: no JVD, regular rhythm, S1 normal heart sound present, S2 normal heart sound present and No murmurs present (Cardio) RHYTHM: regular rhythm HEART SOUNDS: S1 normal heart sound present and S2 normal heart sound present GI: COMMON NORMALS: Normal to inspection, nondistended, normoactive bowel sounds present, Soft to palpation and non-tender PALPATION: Yes Soft to palpation Extremity: COMMON NORMALS: no joint enlargement and no pedal edema Neuro: COMMON NORMALS: patient oriented x3 and moves all extremities S ENSORIUM/ORIENTATION: Yes alert Skin: COMMON NORMALS: no rashes or lesions noted GENERAL SKIN EXAM: no rashes or lesions noted Data 06/27/24 06:37 06/27/24 06:37 Micro: Microbiology 06/21/24 19:21 Blood Culture - Final Blood NO GROWTH AFTER 5 DAYS 06/21/24 17:35 Blood Culture - Final Blood NO GROWTH AFTER 5 DAYS A&P Assessment and plan (1) Internal jugular (IJ) vein thromboembolism, acute: Reviewed vitals, CBC, PTT, BMP. So far maintaining therapeutic anticoagulation well. She is feeling better. Reviewed hemoglobin, 11. Platelets are normal. Discussed with her heme-onc doctor, continue IV anticoagulation currently with heparin for 48-72 hours post port removal, continue today, tomorrow possibly transition to oral anticoagulant with Eliquis. Discussed with her and family, she is agreeable continue with treatment. Monitor for risk of bleeding with IV anticoagulant. Reassess blood counts, monitor PTT. Discussed with nursing, counter caser. She is doing well after removal of Port-A-Cath. Reviewed vitals, CBC, PTT, BMP, magnesium, reviewed surgery note. Resumed heparin drip. Monitor for risk of bleeding. Monitor PTT. Discussed with counter caser, nursing. Discussed with her continue anticoagulation with heparin over the next 48 hours with anticipated transition to oral anticoagulant. Continue anticoagulation. Monitor for risk of bleeding with therapeutic anticoagulant, monitor PTT, blood counts. Monitor for any bleeding signs. Associated with right hemithorax port. Case discussed with oncology on admission. Continue with heparin drip for now. Plan to continue heparin drip for at least 72 hours. Continue heparin drip maintaining PTT around 80. (2) Headache: So far Resolved at least at rest. Nausea improved with scopolamine patch. Continued headache for last 12 hours. Given some changes in vision of right eye there is a concern for dural sinus thrombosis. Will plan for CT venogram. (3) Port-A-Cath in place: Port-A-Cath has been removed. (4) Dural venous sinus thrombosis: (5) Primary infiltrating ductal carcinoma of upper-outer quadrant of left breast in female: Plan Hypomagnesemia: Additional mild hypomagnesemia magnesium 1.8. Give additional supplement, will recheck level. Recheck chemistry. Follow-up potassium. Full code Carb consistent diet Heparin will be sufficient for DVT prophylaxis Protonix for PUD prophylaxis Attestations 2 Medical Necessity Statement*: Continue admission for assessment of management of internal jugular vein thrombus, venous Port-A-Cath thrombotic complication, resumption of anticoagulation, in a lady with underlying breast cancer. and High MDM includes amount and/or complexity of data reviewed/ordered [ resulted lab(s)/test(s), ordered lab(s)/test(s) and other healthcare professional discussion] and described risk of complication, morbidity or mortality of management as documented Diagnoses Internal jugular (IJ) vein thromboembolism, acute I82.C19 Headache R51.9 Port-A-Cath in place Z95.828 Dural venous sinus thrombosis G08 Primary infiltrating ductal carcinoma of upper-outer quadrant of left breast in female C50.412
[2024-06-27] MEDS: magnesium sulfate premix 2 GM/50 ML PIGGYBACK IV (19:56)
[2024-06-27 20:36] LABS: Partial Thromboplastin Time 63.3 SECONDS (23.9-36.7)
[2024-06-28] VITALS (8 sets, daily range): BP systolic 108–148; BP diastolic 67–88; PULSE 80–90; RESP 16–17; TEMP 36.6–36.9; O2SAT 91–94
[2024-06-28] MEDS: heparin drip 25,000 UNIT/500 ML PREMIX 52 UNIT IV (00:54)
[2024-06-28 02:48] LABS: Basophils % 0.6 %; Eosinophils % 0.1 %; Hematocrit 32.6 % (36-47); Lymphocytes # 2.2 10^3/uL (0.8-4.8); Lymphocytes % 31.2 %; Mean Corpuscular HGB Conc 31.3 g/dL (30-55); Mean Corpuscular Hemoglobin 30.7 pg (27-33); Mean Corpuscular Volume 98.2 fl (85-98); Mean Platelet Volume 9.8 fL (7.4-10.4); Monocytes # 0.5 10^3/uL (0.2-0.9); Monocytes % 7.5 %; Neutrophils # 4.04 10^3/uL (1.8-7.7); Neutrophils % 58.7 %; Nucleated Red Blood Cells % 0.3 %; Platelet Count 265 10^3/cmm (157-399); Red Blood Count 3.32 10^6/uL (3.85-5.65); White Blood Count 6.89 10^3/uL (3.29-11.43)
[2024-06-28 03:07] LABS: Partial Thromboplastin Time 81.8 SECONDS (23.9-36.7)
[2024-06-28 03:11] LABS: Anion Gap 13.8 (5-19); Blood Urea Nitrogen 10 mg/dL (6-20); Calcium 8.8 mg/dL (8.5-10.5); Carbon Dioxide 25 mmol/L (22-29); Chloride 104 mmol/L (98-107); Glomerular Filtration Rate 66.5 mL/min (90-130); Glucose 129 mg/dL (65-115); Magnesium 1.9 mg/dL (1.7-2.3); Osmolality Calculated 289 mOsm/kg (285-295); Potassium 3.8 mmol/L (3.5-5.1); Sodium 139 mmol/L (136-145)
[2024-06-28] MEDS: pantoprazole DR 40 mg Tablet PO (09:21)
[2024-06-28] MEDS: potassium chloride ER 20 mEq Tablet PO (09:21)
[2024-06-28] MEDS: PARoxetine 20 mg Tablet 40 MG PO (09:21)
[2024-06-28] MEDS: buPROPion XL (24 HR) 300 mg Tablet PO (09:21)
[2024-06-28] MEDS: amlodipine 5 mg Tablet 2.5 MG PO (09:22)
[2024-06-28 09:28] LABS: Partial Thromboplastin Time 71.5 SECONDS (23.9-36.7)
[2024-06-28] MEDS: heparin drip 25,000 UNIT/500 ML PREMIX 48 UNIT IV (10:40)
--- NOTE | 2024-06-28 14:18 | PM.DCS ---
Discharge Providers Date of Admission: 06/21/24 16:46 Date of Discharge: June 28, 2024 Attending Provider at Admission: Carlito Ventura DO Attending Provider at Discharge: Quinton Farley Primary Care Provider: Jennifer Duong APN Diagnoses at Discharge Discharge Diagnosis (1) Internal jugular (IJ) vein thromboembolism, acute: Status: Acute (2) Headache: Status: Acute (3) Port-A-Cath in place: Status: Acute (4) Dural venous sinus thrombosis: Status: Acute (5) Primary infiltrating ductal carcinoma of upper-outer quadrant of left breast in female: Status: Acute Reason for Visit Reason for Visit: DVT Hospital Course Hospital Course Very pleasant 49-year-old lady with breast cancer was admitted directly from oncology due to pain, redness, swelling over right supraclavicular and neck area. CT showed 8.1 mm thrombus in the right jugular vein suspected related to Port-A-Cath. She was initiated on anticoagulation with heparin drip. Her symptoms progressed with development of headache, blurry vision in the right eye, case was discussed with vascular surgery, neuro IR and general IR at [facility] and she was further assessed with MRV which revealed a nonocclusive thrombus in the right transverse dural sinus. As per recommendation she continued on anticoagulation with heparin drip. Port was removed on 06/25 and she was subsequently resumed on anticoagulation with heparin drip which she continued for additional 56 hours following port removal. Her symptoms have resolved with resolution of headache, blurred vision. In case of any additional symptoms consider follow-up with ophthalmology. Subsequently as per discussion with heme-onc with transition for continue anticoagulation with Eliquis 10 mg for 7 days then continued 5 mg twice daily. Physical Exam Narrative: Accompanied by her . Const: COMMON NORMALS: patient oriented x3 and alert GENERAL APPEARANCE: cooperative NUTRITIONAL APPEARANCE: obese ORIENTATION/CONSCIOUSNESS: Yes awake HENMT: COMMON NORMALS: oropharynx normal Neck/C-Spine: COMMON NORMALS: no JVD Chest: OTHER: Right chest wound healing well post port explantation. No bleeding or drainage. Swelling, erythema subsided Resp: COMMON NORMALS: normal respiratory effort and clear to auscultation bilaterally AUSCULTATION: clear to auscultation bilaterally Cardio: COMMON NORMALS: no JVD, regular rhythm, S1 normal heart sound present, S2 normal heart sound present and No murmurs present (Cardio) RHYTHM: regular rhythm HEART SOUNDS: S1 normal heart sound present and S2 normal heart sound present GI: COMMON NORMALS: Normal to inspection, nondistended, normoactive bowel sounds present, Soft to palpation and non-tender PALPATION: Yes Soft to palpation Extremity: COMMON NORMALS: no joint enlargement and no pedal edema Neuro: COMMON NORMALS: patient oriented x3 and moves all extremities SENSORIUM/ORIENTATION: Yes alert Skin: COMMON NORMALS: no rashes or lesions noted GENERAL SKIN EXAM: no rashes or lesions noted Discharge Data Studies Completed and Pending Completed Studies During Hospitalization Category Date Time Status CT head wo/w con 06040 Stat Cat Scan 06/23/24 14:50 Completed MRV [MR venography [place] 96233] Stat MRI 06/23/24 15:00 [place] [id number] Urgent Ultrasound 06/23/24 06:50 Completed Pending at discharge Category Date Time Status PTT [Partial Thromboplastin Time] Timed Lab 06/28/24 15:00 Ordered Radiology Impressions Venous Duplex 06/23/24 06:50 IMPRESSION: Evidence of prominent, occlusive thrombus/deep venous thrombosis projecting right internal jugular vein, with evidence of extension into right innominate/brachiocephalic vein region. clinical laboratory technologist/human resources training manager indicates known per CT scan. Head CT 06/23/24 14:50 IMPRESSION: No dural venous sinus thrombus. Arachnoid granulation in the right transverse sinus. Head/Brain Mag Res Venography 06/23/24 15:00 IMPRESSION: Focal defect in the right transverse sinus, medially, suggestive of a nonocclusive thrombus. Laboratory Results WBC 6.89 10^3/uL (3.29-11.43) 06/28/24 02:40 RBC 3.32 10^6/uL (3.85-5.65) L 06/28/24 02:40 Hgb 10.20 g/dL (11.27-16.99) L 06/28/24 02:40 Hct 32.6 % (36-47) L 06/28/24 02:40 MCV 98.2 fl (85-98) H 06/28/24 02:40 MCH 30.7 pg (27-33) 06/28/24 02:40 MCHC 31.3 g/dL (30-55) 06/28/24 02:40 RDW 22.0 % (12.1-15.1) H 06/28/24 02:40 Plt Count 265 10^3/cmm (157-399) 06/28/24 02:40 MPV 9.8 fL (7.4-10.4) 06/28/24 02:40 Neut % (Auto) 58.7 % 06/28/24 02:40 Lymph % (Auto) 31.2 % 06/28/24 02:40 [place] % (Auto) 7.5 % 06/28/24 02:40 Eos % (Auto) 0.1 % 06/28/24 02:40 Baso % (Auto) 0.6 % 06/28/24 02:40 Neut # (Auto) 4.04 10^3/uL (1.8-7.7) 06/28/24 02:40 Lymph # (Auto) 2.2 10^3/uL (0.8-4.8) 06/28/24 02:40 [place] # (Auto) 0.5 10^3/uL (0.2-0.9) 06/28/24 02:40 Eos # (Auto) 0.0 10^3/uL (0.0-0.8) 06/28/24 02:40 Baso # (Auto) 0.0 10^3/uL (0.0-0.1) 06/28/24 02:40 Nucleated RBC % (auto) 0.3 % 06/28/24 02:40 Nucleated RBCs # 0.0 /100WBC 06/28/24 02:40 APTT 71.5 SECONDS (23.9-36.7) H 06/28/24 08:44 D-Dimer 0.70 ug/mLFEU (0-0.59) H 06/23/24 08:34 Sodium 139 mmol/L (136-145) 06/28/24 02:40 Potassium 3.8 mmol/L (3.5-5.1) 06/28/24 02:40 Chloride 104 mmol/L (98-107) 06/28/24 02:40 Carbon Dioxide 25 mmol/L (22-29) 06/28/24 02:40 Anion Gap 13.8 (5-19) 06/28/24 02:40 BUN 10 mg/dL (6-20) 06/28/24 02:40 Creatinine 0.9 mg/dL (0.5-0.9) 06/28/24 02:40 GFR Calculation 66.5 mL/min (90-130) L 06/28/24 02:40 Glucose 129 mg/dL (65-115) H 06/28/24 02:40 Estimat Average Glucose 140 06/22/24 07:19 Hemoglobin A1c 6.5 % (4.0-6.0) H 06/22/24 07:19 Calculated Osmolality 289 mOsm/kg (285-295) 06/28/24 02:40 Calcium 8.8 mg/dL (8.5-10.5) 06/28/24 02:40 Magnesium 1.9 mg/dL (1.7-2.3) 06/28/24 02:40 Iron 66 ug/dL (37-145) 06/23/24 00:58 TIBC 246 mcg/dl 06/23/24 00:58 % Saturation 26.8 % (20-50) 06/23/24 00:58 Unsat Iron Binding 180 ug/dL (112-347) 06/23/24 00:58 Total Bilirubin 0.2 mg/dL (0.15-1.2) 06/25/24 03:12 AST 19 U/L (0-32) 06/25/24 03:12 ALT 26 U/L (0-33) 06/25/24 03:12 Alkaline Phosphatase 65 U/L (35-105) 06/25/24 03:12 Total Protein 6.6 g/dL (6.6-8.7) 06/25/24 03:12 Albumin 3.7 g/dL (3.5-5.2) 06/25/24 03:12 Globulin 2.9 g/dL (1.3-4.6) 06/25/24 03:12 Triglycerides 194 mg/dL (0-150) H 06/22/24 07:19 Cholesterol 178 mg/dL (0-200) 06/22/24 07:19 LDL Cholesterol, Calc 109 mg/dL (50-129) 06/22/24 07:19 HDL Cholesterol 30 mg/dL (60-100) L 06/22/24 07:19 LDL/HDL Ratio 3.63 RATIO (0.00-3.22) H 06/22/24 07:19 Cholesterol/HDL Ratio 5.93 mg/dL (0.0-4.40) H 06/22/24 07:19 Vitamin B12 > 2000 pg/mL (232-1245) H 06/23/24 00:58 Vitamin B12 Cancelled 06/23/24 00:58 Folate 7.7 ng/mL (4.8-37.3) 06/24/24 00:22 TSH 0.72 uIU/mL (0.27-4.20) 06/22/24 07:19 Vitals Last Vital Signs Temp 98.2 F 06/28/24 11:05 Pulse 80 06/28/24 11:05 Resp 16 06/28/24 11:05 BP 112/78 06/28/24 11:05 Pulse Ox 94 06/28/24 11:05 O2 Del Method Room Air 06/28/24 11:05 O2 Flow Rate 10 06/25/24 14:48 Discharge Plan Discharge Patient Disposition: Home Condition: Stable Prescriptions: New amlodipine 5 mg Tablet 2.5 mg PO DAILY Qty: 90 0RF ondansetron 4 mg tablet,disintegrating 4 mg PO Q6H PRN (Reason: nausea and vomiting) 5 Days Qty: 20 0RF Eliquis DVT-PE Treat 30D Start 5 mg (74 tabs) tablets,dose pack See Rx Instructions .ROUTE .COMPLEX Qty: 74 0RF Rx Instructions: orally per package directions 10mg BID for 7 days, then 5mg BID Continued bupropion HCl 300 mg tablet extended release 24 hr 300 mg PO DAILY paroxetine HCl 40 mg tablet 40 mg PO DAILY prochlorperazine maleate 10 mg tablet 10 mg PO Q6H PRN (Reason: mild nausea and vomiting) Qty: 30 3RF lorazepam 1 mg tablet 0.5 - 1 mg PO Q6H PRN (Reason: severe nausea) Qty: 30 2RF dexamethasone 4 mg tablet 8 mg PO BID Qty: 30 3RF Rx Instructions: Take 2 tabs twice daily, 1 day before and 1 day after Taxotere diphenoxylate-atropine [Lomotil] 2.5-0.025 mg tablet 1 tab PO Q6H PRN (Reason: severe diarrhea) Qty: 30 3RF acyclovir 400 mg tablet 400 mg PO TID Qty: 21 2RF ondansetron 8 mg tablet,disintegrating 8 mg PO Q8H PRN (Reason: nausea and vomiting) Qty: 30 2RF Rx Instructions: Do not take 2 days after receiving treatment potassium chloride 20 mEq tablet extended release 20 meq PO BID Qty: 60 0RF Discontinued spironolactone 50 mg tablet 50 mg PO DAILY diclofenac sodium 75 mg tablet,delayed release (DR/EC) 75 mg PO DAILY hydrochlorothiazide 25 mg tablet 25 mg PO DAILY diclofenac sodium 75 mg PO BEDTIME PRN (Reason: arthritis) Discharge Orders: Discharge Order (Routine); Ordered 06/28/24 Ordered By: Quinton Farley Referrals: Jennifer Duong APN [Primary Care Provider] - 07/04/24 10:00 am Zain Ambriz MD [Physician] - 2 weeks (We have notified your physician's clinic of the need for a follow-up appointment to be scheduled. If you have not heard from them within the next 2 business days, please call them directly. ) Richie Badillo MD [Hospitalist] - 07/03/24 10:00 am Discharge Diet: Cardiac Discharge Activity: Increase activity as tolerated Patient Instructions: Amlodipine (By mouth), Ondansetron (By mouth), Apixaban (By mouth) (Eliquis), Acute Wound Care (DC), Removal of a Central Line, PICC, or Midline Catheter (DC), Blood Thinners (GEN), Opioid Safety, Post Anesthesia Care Activity Restrictions/Additional Instructions: Please follow-up with hematology oncology for reassessment after jugular vein and transfers venous dural sinus thrombosis. Continue to coagulation with Eliquis as discussed with 7 days of 10 mg twice daily then switching and continuing 5 mg twice daily. As discussed monitor for any bleeding, avoid injury. Seek medical attention in case of any bleeding that is concerning. Please discontinue NSAIDs which together with anticoagulation may increase risk of bleeding. Avoid dehydration. Your diuretics are discontinued you are started amlodipine to help manage her blood pressures. Similarly seek medical attention in case of any new worsening or new concerning symptoms. Discharge Attestations Time Spent in Discharge Care*: greater than 30 min Quality Metrics Clinical Quality Measures [ No reported AMI, CVA or VTE this stay] Coding Level of Care Code 88095 Total time (in minutes) for Discharge: 45 Diagnoses Internal jugular (IJ) vein thromboembolism, acute I82.C19 Headache R51.9 Port-A-Cath in place Z95.828 Dural venous sinus thrombosis G08 Primary infiltrating ductal carcinoma of upper-outer quadrant of left breast in female C50.412
[2024-06-28 15:41] LABS: Partial Thromboplastin Time 61.7 SECONDS (23.9-36.7)
== END 2024-06-28 17:17 | disposition home or self-care (01) | DRG 252 ==
PROVIDERS: Internal Medicine; Student in an Organized Health Care Education/Training Program; Surgery; Admitting Provider Family Medicine; PCP Nurse Practitioner Family; Visit Provider Internal Medicine
PROC: 0JPT0WZ Removal of Totally Implantable Vascular Access Device from Trunk Subcutaneous Tissue and Fascia, Open Approach (ICD-10-PCS; CPT 36589; principal; 2024-06-25 13:10)
DX: T82.868A Thrombosis due to vascular prosthetic devices, implants and grafts, initial encounter (principal); G08 Intracranial and intraspinal phlebitis and thrombophlebitis; I82.C11 Acute embolism and thrombosis of right internal jugular vein; Y81.8 Miscellaneous general- and plastic-surgery devices associated with adverse incidents, not elsewhere classified; C50.412 Malignant neoplasm of upper-outer quadrant of left female breast; I10 Essential (primary) hypertension; F41.9 Anxiety disorder, unspecified; F32.A Depression, unspecified; E87.6 Hypokalemia; R73.9 Hyperglycemia, unspecified; D64.9 Anemia, unspecified; R51.9 Headache, unspecified; E83.42 Hypomagnesemia; Z79.60 Long term (current) use of unspecified immunomodulators and immunosuppressants; Z95.828 Presence of other vascular implants and grafts; Z90.49 Acquired absence of other specified parts of digestive tract; Z82.49 Family history of ischemic heart disease and other diseases of the circulatory system; Z83.3 Family history of diabetes mellitus; Z87.891 Personal history of nicotine dependence
CPT/HCPCS: 36415; 36591; 70470; 70491; 70544; 71260; 80048; 80053; 80061; 82607; 82746; 83036; 83540; 83550; 83735; 84443; 85025; 85378; 85730; 87040; 93971; 94664; J1644; J1885; J2270; J2405; J2704; J3010; J3475; J3490; J7030

== ENCOUNTER → 2024-07-09 08:03 | Day surgery (SDC) | payer BC, MEDICAID, SELFPAY ==
--- NOTE | 2024-07-09 08:05 | XR_ITS ---
WS: [id number] Exam: XR chest 1V portable [id number] Date/Time of Exam: 07/09/2024 9:24 AM Reason For Exam: PICC PLACEMENT No priors. A right-sided PICC line is in place and ends at the cavoatrial junction. The lungs are fully inflated and clear. Normal cardiomediastinal silhouette and regional bony elements. XR/XR chest 1V portable [id number] IMPRESSION: 1. Right-sided PICC line ending at the cavoatrial junction. The chest is otherw ise negative.
[2024-07-09 08:20] VITALS: BP 178/80; PULSE 93; RESP 18; TEMP 36.2; O2SAT 93
== END ==
PROVIDERS: PCP Nurse Practitioner Family; Visit Provider Internal Medicine Medical Oncology
DX: Z45.2 Encounter for adjustment and management of vascular access device (principal)
CPT/HCPCS: 36573; 71045

== ENCOUNTER 2024-07-10 07:45 | Oncology outpatient (recurring) (ONCR) | payer BC, MEDICAID, SELFPAY ==
[2024-07-10 08:12] LABS: Basophils % 0.1 %; Hematocrit 36.7 % (36-47); Lymphocytes # 0.7 10^3/uL (0.8-4.8); Lymphocytes % 6.8 %; Mean Corpuscular HGB Conc 31.3 g/dL (30-55); Mean Corpuscular Hemoglobin 30.6 pg (27-33); Mean Corpuscular Volume 97.6 fl (85-98); Mean Platelet Volume 9.8 fL (7.4-10.4); Monocytes # 0.1 10^3/uL (0.2-0.9); Monocytes % 1.4 %; Neutrophils % 90.5 %; Nucleated Red Blood Cells % 0 %; Platelet Count 267 10^3/cmm (157-399); Red Blood Count 3.76 10^6/uL (3.85-5.65); Red Cell Distribution Width 18.7 % (12.1-15.1); White Blood Count 10.05 10^3/uL (3.29-11.43)
[2024-07-10 08:30] LABS: Alanine Aminotransferase 30 U/L (0-33); Alkaline Phosphatase 55 U/L (35-105); Aspartate Amino Transferase 20 U/L (0-32); Blood Urea Nitrogen 16 mg/dL (6-20); Calcium 8.8 mg/dL (8.5-10.5); Carbon Dioxide 22 mmol/L (22-29); Chloride 101 mmol/L (98-107); Creatinine Clr Calc Pharmacy 148.3106; Globulin 3.2 g/dL (1.3-4.6); Glomerular Filtration Rate 76.2 mL/min (90-130); Glucose 248 mg/dL (65-115); Osmolality Calculated 289 mOsm/kg (285-295); Sodium 135 mmol/L (136-145); Total Bilirubin 0.3 mg/dL (0.15-1.2); Total Protein 7.2 g/dL (6.6-8.7)
[2024-07-10] MEDS: OLANZapine 5 mg TABLET PO (09:43)
[2024-07-10] MEDS: sodium chloride 0.9% 250 ML 75 ML IV (09:44)
[2024-07-10] MEDS: dexamethasone 4 mg/mL INJ 12 MG IVP (09:44)
[2024-07-10] MEDS: diphenhydrAMINE 50 mg/mL SDV 1mL 25 MG IVP (09:46)
[2024-07-10] MEDS: famotidine 20 mg/2 mL INJ IVP (09:47)
[2024-07-10] MEDS: fosaprepitant 150 MG in sodium chloride 0.9% 150 ML 300 MG IV (09:54)
[2024-07-10] MEDS: palonosetron 0.25 mg/5 mL SDV IVP (10:31)
[2024-07-10] MEDS: [UNRECOGNIZED DRUG - REMARK] 270 MG IV (10:36)
[2024-07-10] MEDS: pertuzumab-trastuzumab-hy-zzxf (60 mg-60mg-2000 units/mL) 10mL 600 MG SUBCUT (13:22)
[2024-07-10] MEDS: pegfilgrastim 6 mg/0.6 mL Kit (onpro) SUBCUT (14:04)
[2024-07-10 14:11] VITALS: BP 147/96; PULSE 95; RESP 17; TEMP 36.6; O2SAT 93
== END 2024-07-10 23:59 | disposition home or self-care (01) ==
PROVIDERS: Internal Medicine Medical Oncology; PCP Nurse Practitioner Family; Visit Provider Nurse Practitioner Family
DX: C50.412 Malignant neoplasm of upper-outer quadrant of left female breast (principal); Z53.9 Procedure and treatment not carried out, unspecified reason; Z51.11 Encounter for antineoplastic chemotherapy; Z51.12 Encounter for antineoplastic immunotherapy; Z17.1 Estrogen receptor negative status [ER-]; Z79.52 Long term (current) use of systemic steroids; Z79.899 Other long term (current) drug therapy
CPT/HCPCS: 80053; 85025; 96367; 96375; 96377; 96402; 96411; 96413; 96417; J1100; J1200; J1453; J2469; J2506; J3490; J7040; J7050; J9045; J9171; J9316

== ENCOUNTER 2024-07-17 13:07 | Oncology outpatient (recurring) (ONCR) | payer BC, MEDICAID, SELFPAY ==
[2024-07-17 13:30] VITALS: BP 120/78; PULSE 68; RESP 18; TEMP 36.6; O2SAT 98
[2024-07-17 13:45] LABS: Hematocrit 34.4 % (36-47); Mean Corpuscular HGB Conc 32.6 g/dL (30-55); Mean Corpuscular Hemoglobin 30.9 pg (27-33); Mean Platelet Volume 11.1 fL (7.4-10.4); Platelet Count 124 10^3/cmm (157-399); Red Blood Count 3.62 10^6/uL (3.85-5.65); Red Cell Distribution Width 16.6 % (12.1-15.1); White Blood Count 2.25 10^3/uL (3.29-11.43)
[2024-07-17 13:59] LABS: Alanine Aminotransferase 25 U/L (0-33); Albumin Level 3.8 g/dL (3.5-5.2); Alkaline Phosphatase 68 U/L (35-105); Anion Gap 16.5 (5-19); Aspartate Amino Transferase 20 U/L (0-32); Blood Urea Nitrogen 8 mg/dL (6-20); Calcium 9.2 mg/dL (8.5-10.5); Carbon Dioxide 24 mmol/L (22-29); Chloride 99 mmol/L (98-107); Globulin 2.9 g/dL (1.3-4.6); Glomerular Filtration Rate 76.2 mL/min (90-130); Glucose 176 mg/dL (65-115); Osmolality Calculated 285 mOsm/kg (285-295); Potassium 3.5 mmol/L (3.5-5.1); Sodium 136 mmol/L (136-145); Total Bilirubin 0.4 mg/dL (0.15-1.2); Total Protein 6.7 g/dL (6.6-8.7)
[2024-07-17 14:09] LABS: Slide Review Slide Review Perform
[2024-07-17 14:10] LABS: Absolute Eosinophils 0.1 10^3/cmm (0.0-0.7); Absolute Segmented Neutrophil 0.6 10/cmm (1.6-7.1); Eosinophils 4 %; Lymphocytes 51 %; Lymphocytes Absolute 1.4 10^3/cmm (1.2-3.4); Monocytes Absolute 0.1 10^3/cmm (0.1-0.6); Platelet Estimate Decreased (Normal); Segmented Neutrophils 26 %; Total Cells Counted 100 (0-100)
[2024-07-17 14:11] LABS: Absolute Neutrophil 0.6 10^3/cmm (1.4-6.5)
== END 2024-07-21 23:59 | disposition home or self-care (01) ==
LOC: ONCMED 13:07
PROVIDERS: Internal Medicine Medical Oncology; PCP Nurse Practitioner Family; Visit Provider Nurse Practitioner Family
DX: C50.412 Malignant neoplasm of upper-outer quadrant of left female breast (principal); Z45.2 Encounter for adjustment and management of vascular access device
CPT/HCPCS: 80053; 85007; 85025

== ENCOUNTER 2024-07-23 07:52 | Outpatient (CLI) | payer BC, MEDICAID, SELFPAY ==
--- NOTE | 2024-07-23 07:45 | USCV_ITS ---
Ara Stephen Age: 49 Gender: F : 1975 Exam Date: 07/23/2024 08:08 Ordering Phys: Deborah Nichols APRN Technologist: Exam Location: [facility] – [place] Indication: high risk meds BP: 132 / 75 HR: Rhythm: Sinus Technical Quality: Adequate MEASUREMENTS (Male / Female) Normal Values 2D ECHO LV Diastolic Diameter PLAX 3.6 cm 4.2 - 5.9 / 3.9 - 5.3 cm IVS Diastolic Thickness 1.6 cm 0.6 - 1.0 / 0.6 - 0.9 cm IVS Systolic Thickness 2.3 cm LVPW Diastolic Thickness 1.6 cm 0.6 - 1.0 / 0.6 - 0.9 cm LVPW Systolic Thickness 1.9 cm LVOT Diameter 2.9 cm LV Ejection Fraction 2D Teich 64.0 % LV Ejection Fraction MOD 2C 53.3 % LV Ejection Fraction 2C AL 54.9 % LA Diameter 4.4 cm RA Systolic Volume 4C AL 29.8 ml RA Systolic Volume 4C MOD 30.1 ml Aorta at Sinotubular Diameter 4.5 cm IVC Diameter 2.2 cm M-MODE LA Ao Ratio MM 1.2 AV Cusp Separation MM 3.0 cm FINDINGS Left Ventricle Right Ventricle Right Atrium Left Atrium Mitral Valve Aortic Valve Tricuspid Valve Pulmonic Valve Pericardium Aorta IVC CONCLUSIONS Limited quality echocardiogram because of poor ultrasonic windows. LV systolic function is normal with EF of 60-65%. No regional wall motion abnormalities are seen. Compared to prior echocardiogram from 03/2024, no significant changes are seen. In future will recommend echocardiograms with contrast as imaging quality is limited. Tobias Gerber MD (Electronically Signed) Final Date: 23 July 2024 15:38 S
== END 2024-07-23 07:53 | disposition home or self-care (01) ==
PROVIDERS: Visit Provider Nurse Practitioner Family
DX: C50.412 Malignant neoplasm of upper-outer quadrant of left female breast (principal); Z79.899 Other long term (current) drug therapy
CPT/HCPCS: 93308

== ENCOUNTER 2024-07-31 07:45 | Oncology outpatient (recurring) (ONCR) | payer BC, MEDICAID, SELFPAY ==
[2024-07-23 09:02] LABS: Basophils % 0.4 %; Hematocrit 35.1 % (36-47); Lymphocytes # 1.2 10^3/uL (0.8-4.8); Lymphocytes % 17.6 %; Mean Corpuscular HGB Conc 31.1 g/dL (30-55); Mean Corpuscular Hemoglobin 30.6 pg (27-33); Mean Corpuscular Volume 98.6 fl (85-98); Mean Platelet Volume 10.8 fL (7.4-10.4); Monocytes # 0.4 10^3/uL (0.2-0.9); Monocytes % 5.1 %; Neutrophils # 5.27 10^3/uL (1.8-7.7); Nucleated Red Blood Cells % 0 %; Platelet Count 150 10^3/cmm (157-399); Red Blood Count 3.56 10^6/uL (3.85-5.65); White Blood Count 6.93 10^3/uL (3.29-11.43)
[2024-07-23 09:21] LABS: Alanine Aminotransferase 47 U/L (0-33); Albumin Level 3.7 g/dL (3.5-5.2); Alkaline Phosphatase 77 U/L (35-105); Anion Gap 14.4 (5-19); Aspartate Amino Transferase 29 U/L (0-32); Blood Urea Nitrogen 10 mg/dL (6-20); Calcium 9.3 mg/dL (8.5-10.5); Carbon Dioxide 25 mmol/L (22-29); Chloride 98 mmol/L (98-107); Globulin 3.1 g/dL (1.3-4.6); Glomerular Filtration Rate 66.5 mL/min (90-130); Glucose 119 mg/dL (65-115); Lactate Dehydrogenase 254 U/L (135-214); Osmolality Calculated 278 mOsm/kg (285-295); Potassium 3.4 mmol/L (3.5-5.1); Sodium 134 mmol/L (136-145); Total Bilirubin 0.3 mg/dL (0.15-1.2); Total Protein 6.8 g/dL (6.6-8.7)
[2024-07-31 08:19] LABS: Basophils % 0.2 %; Hematocrit 36.7 % (36-47); Lymphocytes # 0.9 10^3/uL (0.8-4.8); Lymphocytes % 8.4 %; Mean Corpuscular HGB Conc 31.6 g/dL (30-55); Mean Corpuscular Hemoglobin 30.9 pg (27-33); Mean Corpuscular Volume 97.6 fl (85-98); Monocytes # 0.1 10^3/uL (0.2-0.9); Monocytes % 1.1 %; Neutrophils # 9.54 10^3/uL (1.8-7.7); Neutrophils % 87.9 %; Nucleated Red Blood Cells % 0.3 %; Platelet Count 304 10^3/cmm (157-399); Red Blood Count 3.76 10^6/uL (3.85-5.65); Red Cell Distribution Width 17.2 % (12.1-15.1); White Blood Count 10.85 10^3/uL (3.29-11.43)
[2024-07-31 08:34] LABS: Alanine Aminotransferase 28 U/L (0-33); Albumin Level 4.1 g/dL (3.5-5.2); Alkaline Phosphatase 70 U/L (35-105); Anion Gap 18.9 (5-19); Aspartate Amino Transferase 22 U/L (0-32); Blood Urea Nitrogen 13 mg/dL (6-20); Carbon Dioxide 21 mmol/L (22-29); Chloride 102 mmol/L (98-107); Creatinine Clr Calc Pharmacy 130.3835; Globulin 2.9 g/dL (1.3-4.6); Glomerular Filtration Rate 66.5 mL/min (90-130); Glucose 180 mg/dL (65-115); Osmolality Calculated 291 mOsm/kg (285-295); Potassium 3.9 mmol/L (3.5-5.1); Sodium 138 mmol/L (136-145); Total Bilirubin 0.3 mg/dL (0.15-1.2)
[2024-07-31] MEDS: OLANZapine 5 mg TABLET PO (09:29)
[2024-07-31] MEDS: sodium chloride 0.9% 250 ML 50 ML IV (09:29)
[2024-07-31] MEDS: dexamethasone 4 mg/mL INJ 12 MG IVP (09:30)
[2024-07-31] MEDS: diphenhydrAMINE 50 mg/mL SDV 1mL 25 MG IVP (09:37)
[2024-07-31] MEDS: famotidine 20 mg/2 mL INJ IVP (09:40)
[2024-07-31] MEDS: palonosetron 0.25 mg/5 mL SDV IVP (09:43)
[2024-07-31] MEDS: fosaprepitant 150 MG in sodium chloride 0.9% 150 ML 300 MG IV (09:44)
[2024-07-31] MEDS: [UNRECOGNIZED DRUG - REMARK] 270 MG IV (10:59)
[2024-07-31] MEDS: pertuzumab-trastuzumab-hy-zzxf (60 mg-60mg-2000 units/mL) 10mL 600 MG SUBCUT (13:40)
[2024-07-31] MEDS: pegfilgrastim 6 mg/0.6 mL Kit (onpro) SUBCUT (14:05)
[2024-07-31 14:11] VITALS: BP 145/90; PULSE 88; RESP 16; TEMP 36.1; O2SAT 98
== END 2024-07-31 23:59 | disposition home or self-care (01) ==
PROVIDERS: Internal Medicine Medical Oncology; Visit Provider Nurse Practitioner Family
DX: C50.412 Malignant neoplasm of upper-outer quadrant of left female breast (principal); Z53.9 Procedure and treatment not carried out, unspecified reason; Z51.11 Encounter for antineoplastic chemotherapy; Z79.52 Long term (current) use of systemic steroids
CPT/HCPCS: 80053; 83615; 85025; 96367; 96375; 96377; 96401; 96413; 96417; J1100; J1200; J1453; J2469; J2506; J3490; J7040; J7050; J9045; J9171; J9316

== ENCOUNTER 2024-08-18 13:04 | Emergency (ER) | payer BC, MEDICAID, SELFPAY ==
[2024-08-18] VITALS (9 sets, daily range): BP systolic 108–146; BP diastolic 63–101; PULSE 92–105; RESP 11–17; TEMP 37.1; O2SAT 92–96; BMI 60.4
[2024-08-18] MEDS: lactated ringers 1,000 ML 999 ML IV (14:14)
--- NOTE | 2024-08-18 14:19 | ED_ITS ---
HPI - Nausea/Vomiting/Diarrhea 2 General: Chief complaint: Nausea/Vomiting/Diarrhea Stated complaint: Vomitting Time Seen by Provider: 08/18/24 13:24 History of Present Illness: Patient is a 49-year-old female who presents to the emergency department with nausea vomiting diarrhea. Patient was diagnosed in January 2024 with breast cancer. She is currently undergoing chemo and radiation. Her last chemo was at the beginning of July. Her symptoms initially were pretty severe but have resolved. 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 Currently treated with apixaban. Patient was seen by her primary care doctor yesterday and was diagnosed with hypokalemia. Her potassium was 2.9 and she was treated with IV potassium. Patient states that her nausea vomiting and diarrhea had been stable until about 430 this morning. She woke abruptly with severe nausea and vomiting. Has not been able to tolerate taking her oral Zofran. She denies any abdominal pain but has a burning sensation that is epigastric. She denies any chest pain or shortness of breath. She is ill-appearing but nontoxic. Related Data Home Medications Medication Instructions Recorded Confirmed bupropion HCl 300 mg 24 hr tablet, 300 mg PO DAILY 02/22/24 08/18/24 extended release paroxetine HCl 40 mg tablet 40 mg PO DAILY 02/22/24 08/18/24 Previous Rx's Medication Instructions Recorded lorazepam 1 mg tablet 0.5 - 1 mg (0.5 - 1 x 1 mg) PO Q6H 04/02/24 PRN severe nausea #30 tabs diphenoxylate-atropine 2.5 1 tab PO Q6H PRN severe diarrhea 07/17/24 mg-0.025 mg tablet (Lomotil) #30 tabs ondansetron 8 mg disintegrating 8 mg PO Q8H PRN nausea and 07/30/24 tablet vomiting #30 tabs apixaban 5 mg tablet 5 mg PO BID #60 tabs 07/31/24 amlodipine 5 mg tablet 2.5 mg (1/2 x 5 mg) PO DAILY #90 08/02/24 tabs potassium chloride 20 mEq 20 meq PO BID #60 tabs 08/17/24 tablet,extended release cephalexin 500 mg capsule 500 mg PO BID 7 days #14 caps 08/18/24 prochlorperazine maleate 5 mg 5 mg PO TID 48 hours #6 tabs 08/18/24 tablet (Compazine) promethazine 12.5 mg rectal 12.5 mg MA TID PRN Refractory 08/18/24 suppository nausea vomiting #12 ea Allergies Allergy/AdvReac Type Severity Reaction Status Date / Time avocado Allergy Joan Verified 08/18/24 13:15 Lip/Tongue/Throat Review of Systems 2 General: Reports: 10 or more systems reviewed and unremarkable except in HPI and below and Other (Nausea vomiting diarrhea) PFSH ED 2 PFSH: Medical History Breast cancer Surgical History Hx of cholecystectomy 2012 Hx of hernia repair 2014 Hx of tubal ligation 1998 Port-A-Cath in place Family History Father Hypertension Diabetes Mother Hypertension Diabetes Social History Smoking and tobacco/nicotine status: former use of tobacco/nicotine Quit status (tobacco/nicotine): has quit using Former quit date comment: Previously smoked 1 pack per week; quit 30 yrs ago. Second hand smoke exposure: No Alcohol intake: current Substance/Drug Use: never Lives independently: Yes Household members: spouse Housing: Manufactured/Mobile home Marital status: Number of children: 3 Highest education level completed: Some College, No Degree Pets and animals: Yes Pets & animals: cat(s), dog(s) and guinea pig(s) Physical Exam 2 Const: COMMON NORMALS: no acute distress and patient oriented x3 GENERAL APPEARANCE: cooperative Eye: GENERAL EYE: appearance normal, both eyes and all related structures Resp: COMMON NORMALS: normal respiratory effort and clear to auscultation bilaterally EFFORT & INSPECTION: Yes able to speak in complete sentences and No labored AUSCULTATION: clear to auscultation bilaterally Cardio: COMMON NORMALS: regular rate and regular rhythm RATE: regular rate RHYTHM: regular rhythm GI: COMMON NORMALS: Soft to palpation AUSCULTATION: Yes normoactive bowel sounds PALPATION: Yes Soft to palpation Neuro: COMMON NORMALS: patient oriented x3 SPEECH: speech normal Psych: COMMON NORMALS: Normal thought process present ATTITUDE: Yes calm MOOD & AFFECT: No anxious THOUGHT PROCESS: Normal thought process present Skin: COMMON NORMALS: no jaundice Course 2 Vital Signs: Vital signs: Vital Signs Temperature 98.8 F 08/18/24 13:12 Pulse Rate 105 H 08/18/24 17:00 Respiratory Rate 14 08/18/24 17:00 Blood Pressure 130/80 08/18/24 17:00 Pulse Oximetry 93 08/18/24 17:00 Oxygen Delivery Me thod Room Air 08/18/24 17:00 MDM - Nausea/Vomiting/Diarrhea Medical Decision Making Patient was evaluated in the emergency department today for ongoing nausea vomiting diarrhea. Patient attempted to take her usual medications?Zofran but symptoms did not improve and she was unable to keep it down. Here in the emergency department she underwent laboratory evaluation that included a CBC, CMP, magnesium, phosphorus, lipase, urinalysis. We also checked her for influenza/RSV/COVID. COVID influenza RSV was negative. Lipase was within normal limits She was treated yesterday for hypokalemia. Today her potassium is 3.6. She does have a low magnesium that we replaced here in the emergency department. I would recommend she follow-up with her primary care or oncologist to see if ongoing magnesium replacement is necessary. She does not have a white count or anemia and does not have any concerning electrolyte abnormalities. I think the patient was dehydrated so she was treated with 2 L of LR. With regards to the nausea and vomiting she was initially given Zofran but had poor response to that. We elected to trial a 5 mg dose of Compazine. Will discharge her home with Compazine as well as Phenergan suppositories. Urinalysis reveals white blood cells of up to 50. She also has 4+ bacteria. Will treat her with cephalexin Lab Data 08/18/24 14:39 08/18/24 14:39 Laboratory Results WBC 7.55 10^3/uL (3.29-11.43) 08/18/24 14:39 RBC 3.94 10^6/uL (3.85-5.65) 08/18/24 14:39 Hgb 12.20 g/dL (11.27-16.99) 08/18/24 14:39 Hct 38.9 % (36-47) 08/18/24 14:39 MCV 98.7 fl (85-98) H 08/18/24 14:39 MCH 31.0 pg (27-33) 08/18/24 14:39 MCHC 31.4 g/dL (30-55) 08/18/24 14:39 RDW 16.7 % (12.1-15.1) H 08/18/24 14:39 Plt Count 223 10^3/cmm (157-399) 08/18/24 14:39 MPV 10.6 fL (7.4-10.4) H 08/18/24 14:39 Neut % (Auto) 86.9 % 08/18/24 14:39 Lymph % (Auto) 7.9 % 08/18/24 14:39 [place] % (Auto) 4.1 % 08/18/24 14:39 Eos % (Auto) 0.0 % 08/18/24 14:39 Baso % (Auto) 0.4 % 08/18/24 14:39 Neut # (Auto) 6.56 10^3/uL (1.8-7.7) 08/18/24 14:39 Lymph # (Auto) 0.6 10^3/uL (0.8-4.8) L 08/18/24 14:39 [place] # (Auto) 0.3 10^3/uL (0.2-0.9) 08/18/24 14:39 Eos # (Auto) 0.0 10^3/uL (0.0-0.8) 08/18/24 14:39 Baso # (Auto) 0.0 10^3/uL (0.0-0.1) 08/18/24 14:39 Nucleated RBC % (auto) 0 % 08/18/24 14:39 Nucleated RBCs # 0.0 /100WBC 08/18/24 14:39 Sodium 140 mmol/L (136-145) 08/18/24 14:39 Potassium 3.6 mmol/L (3.5-5.1) 08/18/24 14:39 Chloride 104 mmol/L (98-107) 08/18/24 14:39 Carbon Dioxide 20 mmol/L (22-29) L 08/18/24 14:39 Anion Gap 19.6 (5-19) H 08/18/24 14:39 BUN 16 mg/dL (6-20) 08/18/24 14:39 Creatinine 0.8 mg/dL (0.5-0.9) 08/18/24 14:39 GFR Calculation 76.2 mL/min (90-130) L 08/18/24 14:39 Glucose 133 mg/dL (65-115) H 08/18/24 14:39 Calculated Osmolality 293 mOsm/kg (285-295) 08/18/24 14:39 Calcium 9.6 mg/dL (8.5-10.5) 08/18/24 14:39 Phosphorus 3.2 mg/dL (2.5-4.5) 08/18/24 14:39 Magnesium 1.0 mg/dL (1.7-2.3) L 08/18/24 14:39 Total Bilirubin 0.4 mg/dL (0.15-1.2) 08/18/24 14:39 AST 23 U/L (0-32) 08/18/24 14:39 ALT 31 U/L (0-33) 08/18/24 14:39 Alkaline Phosphatase 91 U/L (35-105) 08/18/24 14:39 Total Protein 7.1 g/dL (6.6-8.7) 08/18/24 14:39 Albumin 4.0 g/dL (3.5-5.2) 08/18/24 14:39 Globulin 3.1 g/dL (1.3-4.6) 08/18/24 14:39 Lipase 30 U/L (13-60) 08/18/24 14:39 Urine Color Yellow (Yellow) 08/18/24 16:15 Urine Appearance Cloudy (CLEAR) A 08/18/24 16:15 Urine pH Fabric Worker Fitter 08/18/24 16:15 Ur Specific [place] Not Reportable 08/18/24 16:15 Urine Protein Not Reportable 08/18/24 16:15 Urine Glucose (UA) Not Reportable 08/18/24 16:15 Urine Ketones Negative (Negative) 08/18/24 16:15 Urine Blood Not Reportable 08/18/24 16:15 Urine Nitrate Not Reportable 08/18/24 16:15 Urine Bilirubin Not Reportable 08/18/24 16:15 Urine Urobilinogen Not Reportable 08/18/24 16:15 Ur Leukocyte Esterase Not Reportable 08/18/24 16:15 Urine RBC 6-10 /hpf (0-2) 08/18/24 16:15 Urine WBC 21-50 /hpf (0-5) H 08/18/24 16:15 Ur Squamous Epith Cells 21-50 /hpf (0-5) 08/18/24 16:15 Amorphous Sediment Not Reportable 08/18/24 16:15 Urine Bacteria 4+ /hpf (NONE) H 08/18/24 16:15 Hyaline Casts 1.65 /lpf 08/18/24 16:15 Coronavirus (PCR) Negative (Negative) 08/18/24 14:39 Influenza A (PCR) Negative (Negative) 08/18/24 14:39 Influenza Type B (PCR) Negative (Negative) 08/18/24 14:39 RSV (PCR) Negative (Negative) 08/18/24 14:39 No radiology studies performed this visit Discharge Plan Discharge Patient Disposition: Home Clinical Impression: Urinary tract infection, Nausea vomiting and diarrhea, Hypomagnesemia Condition: Stable Prescriptions: New prochlorperazine maleate [Compazine] 5 mg tablet 5 mg PO TID 2 Days Qty: 6 0RF promethazine 12.5 mg suppository 12.5 mg MA TID PRN (Reason: Refractory nausea vomiting) Qty: 12 0RF Rx Instructions: do not give 3rd daily dose after evening meal or within 4hr before bed Use if unable to keep your main antiemetics down cephalexin 500 mg capsule 500 mg PO BID 7 Days Qty: 14 0RF No Action bupropion HCl 300 mg tablet extended release 24 hr 300 mg PO DAILY paroxetine HCl 40 mg tablet 40 mg PO DAILY lorazepam 1 mg tablet 0.5 - 1 mg PO Q6H PRN (Reason: severe nausea) Qty: 30 2RF apixaban 5 mg tablet 5 mg PO BID Qty: 60 3RF potassium chloride 20 mEq tablet extended release 20 meq PO BID Qty: 60 0RF diphenoxylate-atropine [Lomotil] 2.5-0.025 mg tablet 1 tab PO Q6H PRN (Reason: severe diarrhea) Qty: 30 3RF ondansetron 8 mg tablet,disintegrating 8 mg PO Q8H PRN (Reason: nausea and vomiting) Qty: 30 2RF Rx Instructions: Do not take 2 days after receiving treatment amlodipine 5 mg tablet 2.5 mg PO DAILY Qty: 90 0RF Discharge Orders: Discharge ED (Routine); Ordered 08/18/24 Ordered By: Lakhwinder Mckinney Discharge Diet: Advance as tolerated Discharge Activity: Resume usual activity Patient Instructions: Pain Management, Promethazine (Into the rectum), Prochlorperazine (By mouth) (Compazine), Urinary Tract Infection in Women (DC) Activity Restrictions/Additional Instructions: Please take medications as prescribed Do not take all of the antiemetics provided. If you are unable to keep your Zofran or Compazine down then you can take the rectal suppository Phenergan Make sure you follow-up with your oncologist Tuesday for recheck of your labs. Talk with them to see if you need ongoing magnesium replacement. Take your antibiotics as prescribed Please return to the emergency department for new, concerning, worsening symptoms Coding Level of Care Code ED Experimental Rocketsled Mechanic for Mat Sanon
[2024-08-18] MEDS: ondansetron 2 mg/ML SDV 2 mL 8 MG IVP (14:37)
[2024-08-18 14:50] LABS: Basophils % 0.4 %; Hematocrit 38.9 % (36-47); Lymphocytes # 0.6 10^3/uL (0.8-4.8); Lymphocytes % 7.9 %; Mean Corpuscular HGB Conc 31.4 g/dL (30-55); Mean Corpuscular Volume 98.7 fl (85-98); Mean Platelet Volume 10.6 fL (7.4-10.4); Monocytes # 0.3 10^3/uL (0.2-0.9); Monocytes % 4.1 %; Neutrophils # 6.56 10^3/uL (1.8-7.7); Neutrophils % 86.9 %; Nucleated Red Blood Cells % 0 %; Platelet Count 223 10^3/cmm (157-399); Red Blood Count 3.94 10^6/uL (3.85-5.65); Red Cell Distribution Width 16.7 % (12.1-15.1); White Blood Count 7.55 10^3/uL (3.29-11.43)
[2024-08-18 15:10] LABS: Alanine Aminotransferase 31 U/L (0-33); Alkaline Phosphatase 91 U/L (35-105); Anion Gap 19.6 (5-19); Aspartate Amino Transferase 23 U/L (0-32); Blood Urea Nitrogen 16 mg/dL (6-20); Calcium 9.6 mg/dL (8.5-10.5); Carbon Dioxide 20 mmol/L (22-29); Chloride 104 mmol/L (98-107); Creatinine Clr Calc Pharmacy 143.6814; Globulin 3.1 g/dL (1.3-4.6); Glomerular Filtration Rate 76.2 mL/min (90-130); Glucose 133 mg/dL (65-115); Lipase 30 U/L (13-60); Osmolality Calculated 293 mOsm/kg (285-295); Phosphorus 3.2 mg/dL (2.5-4.5); Potassium 3.6 mmol/L (3.5-5.1); Sodium 140 mmol/L (136-145); Total Bilirubin 0.4 mg/dL (0.15-1.2); Total Protein 7.1 g/dL (6.6-8.7)
[2024-08-18 15:25] LABS: Covid PCR NEGATIVE (Negative); Influenza A NEGATIVE (Negative); Influenza B NEGATIVE (Negative); Respiratory Syncytial Virus Ce NEGATIVE (Negative)
[2024-08-18] MEDS: prochlorperazine 10 mg/2 mL Inj 5 MG IVP (15:27)
[2024-08-18] MEDS: magnesium oxide 400 mg tablet PO (16:24)
[2024-08-18 16:34] LABS: Add Urine Microscopic? NO
[2024-08-18 16:39] LABS: Bacteria Urine 4+ /hpf; Hyaline Casts Urine 1.65 /lpf; Squamous Epithelial Cell Urine 21-50 /hpf (0-5); WBC Urine 21-50 /hpf (0-5)
[2024-08-18 16:59] LABS: Ketones Urine Negative (Negative); UA Slide Review UA Slide Review Perf; Urine Appearance Cloudy (CLEAR); Urine Color Yellow (Yellow)
[2024-08-18 17:02] LABS: Charge for UA Resulting for Rev
[2024-08-18] MEDS: cephALEXin 500 mg Capsule PO (17:42)
== END 2024-08-18 17:46 | disposition home or self-care (01) ==
PROVIDERS: Emergency Medicine; Emergency Provider Nurse Practitioner
DX: N39.0 Urinary tract infection, site not specified (principal); R11.2 Nausea with vomiting, unspecified; R19.7 Diarrhea, unspecified; E83.42 Hypomagnesemia; Z11.52 Encounter for screening for COVID-19; Z87.891 Personal history of nicotine dependence; Z85.3 Personal history of malignant neoplasm of breast
CPT/HCPCS: 80053; 81003; 83690; 83735; 84100; 85025; 87637; 96374; 96375; 99284; J0780; J2405; J7120

== ENCOUNTER 2024-08-20 10:09 | Oncology outpatient (recurring) (ONCR) | payer BC, MEDICAID, SELFPAY ==
[2024-08-17 08:55] LABS: Basophils % 0.7 %; Hematocrit 33.9 % (36-47); Lymphocytes # 1.3 10^3/uL (0.8-4.8); Lymphocytes % 23.7 %; Mean Corpuscular HGB Conc 31.3 g/dL (30-55); Mean Corpuscular Hemoglobin 30.5 pg (27-33); Mean Corpuscular Volume 97.4 fl (85-98); Mean Platelet Volume 10.2 fL (7.4-10.4); Monocytes # 0.4 10^3/uL (0.2-0.9); Neutrophils # 3.71 10^3/uL (1.8-7.7); Nucleated Red Blood Cells % 0 %; Platelet Count 199 10^3/cmm (157-399); Red Blood Count 3.48 10^6/uL (3.85-5.65); Red Cell Distribution Width 16.5 % (12.1-15.1); White Blood Count 5.45 10^3/uL (3.29-11.43)
[2024-08-17 09:12] LABS: Alanine Aminotransferase 32 U/L (0-33); Albumin Level 3.7 g/dL (3.5-5.2); Alkaline Phosphatase 77 U/L (35-105); Anion Gap 13.9 (5-19); Aspartate Amino Transferase 26 U/L (0-32); Blood Urea Nitrogen 8 mg/dL (6-20); Carbon Dioxide 26 mmol/L (22-29); Chloride 103 mmol/L (98-107); Globulin 2.6 g/dL (1.3-4.6); Glomerular Filtration Rate 76.2 mL/min (90-130); Glucose 125 mg/dL (65-115); Osmolality Calculated 290 mOsm/kg (285-295); Sodium 140 mmol/L (136-145); Total Bilirubin 0.2 mg/dL (0.15-1.2); Total Protein 6.3 g/dL (6.6-8.7)
[2024-08-17 09:29] LABS: Potassium 2.9 mmol/L (3.5-5.1)
[2024-08-17] MEDS: sodium chlor 0.9% + KCl 20 mEq 20 MEQ/1,000 ML BAG 500 MEQ IV (10:02)
[2024-08-17 10:24] VITALS: BP 144/96; PULSE 84; RESP 17; TEMP 36.4; O2SAT 95
[2024-08-20 13:17] LABS: Basophils % 0.4 %; Lymphocytes # 1.3 10^3/uL (0.8-4.8); Lymphocytes % 26.6 %; Mean Corpuscular HGB Conc 31.7 g/dL (30-55); Mean Corpuscular Hemoglobin 30.8 pg (27-33); Mean Corpuscular Volume 97.3 fl (85-98); Mean Platelet Volume 10.1 fL (7.4-10.4); Monocytes # 0.7 10^3/uL (0.2-0.9); Monocytes % 13.9 %; Neutrophils # 2.96 10^3/uL (1.8-7.7); Neutrophils % 58.7 %; Nucleated Red Blood Cells % 0 %; Platelet Count 235 10^3/cmm (157-399); Red Cell Distribution Width 16.5 % (12.1-15.1); White Blood Count 5.04 10^3/uL (3.29-11.43)
[2024-08-20 13:33] LABS: Alanine Aminotransferase 41 U/L (0-33); Albumin Level 3.8 g/dL (3.5-5.2); Alkaline Phosphatase 76 U/L (35-105); Anion Gap 18.4 (5-19); Aspartate Amino Transferase 40 U/L (0-32); Blood Urea Nitrogen 15 mg/dL (6-20); Calcium 9.1 mg/dL (8.5-10.5); Carbon Dioxide 20 mmol/L (22-29); Chloride 100 mmol/L (98-107); Creatinine Clr Calc Pharmacy 146.6051; Glomerular Filtration Rate 76.2 mL/min (90-130); Glucose 118 mg/dL (65-115); Osmolality Calculated 282 mOsm/kg (285-295); Potassium 3.4 mmol/L (3.5-5.1); Sodium 135 mmol/L (136-145); Total Bilirubin 0.2 mg/dL (0.15-1.2); Total Protein 6.8 g/dL (6.6-8.7)
== END 2024-08-21 23:59 | disposition home or self-care (01) ==
PROVIDERS: Internal Medicine Medical Oncology; Visit Provider Nurse Practitioner Family
DX: Z53.9 Procedure and treatment not carried out, unspecified reason (principal); C50.412 Malignant neoplasm of upper-outer quadrant of left female breast
CPT/HCPCS: 36415; 80053; 85025; 96365; 96366; J3480

== ENCOUNTER 2024-10-07 20:14 | Emergency (ER) | payer BC, MEDICAID, SELFPAY ==
[2024-10-07] VITALS (36 sets, daily range): BP systolic 73–126; BP diastolic 46–93; PULSE 91–108; RESP 9–22; TEMP 36.7–36.8; O2SAT 91–100; BMI 59.0
--- NOTE | 2024-10-07 20:33 | ECG_ITS ---
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 Measurements Intervals [place] Rate: 107 P: 58 [place]: 162 QRS: 59 QRSD: 89 T: 43 QT: 328 QTc: 438 Interpretive Statements SINUS TACHYCARDIA WITH FREQUENT VENTRICULAR PREMATURE COMPLEXES LOW QRS VOLTAGE IN PRECORDIAL LEADS [QRS DEFLECTION < 1.0 mV IN CHEST LEADS] MODERATE ST DEPRESSION [0.05+ mV ST DEPRESSION] No previous ECG available for comparison Electronically Signed On 10-08-2024 11:26:04 PACK PULLER by Harvey Velarde M.D. [email or web address]
--- NOTE | 2024-10-07 20:33 | XRR_ITS ---
PROCEDURE INFORMATION: Exam: XR Chest Exam date and time: 10/07/2024 8:41 PM Age: 49 years old Clinical indication: Other: Weakness; Prior surgery; Surgery date: <1 month; Surgery type: Left mastectomy; Portacath TECHNIQUE: Imaging protocol: Radiologic exam of the chest. Views: 1 view. COMPARISON: CR XR chest 1V portable [id number] 07/09/2024 9:28 AM FINDINGS: Tubes, catheters and devices: Surgical drain overlies the left breast. Lungs: Unremarkable. No consolidation. Pleural spaces: Unremarkable. No pleural effusion. No pneumothorax. Heart/Mediastinum: Unremarkable. No cardiomegaly. Bones/joints: Unremarkable. XR/XR chest 1V portable [id number] IMPRESSION: No acute findings.
--- NOTE | 2024-10-07 20:38 | CTR_ITS ---
PROCEDURE INFORMATION: Exam: CT Chest With Contrast; Diagnostic Exam date and time: 10/07/2024 8:58 PM Age: 49 years old Clinical indication: Prior surgery; Surgery date: <1 month; C/O worsening chest wall pain and swelling post left mastectomy 09/27/2024. Drain catheter in place with bulb full of clots. ; Additional info: Left breast swellking TECHNIQUE: Imaging protocol: Diagnostic computed tomography of the chest with contrast. Radiation optimization: All CT scans at this facility use at least one of these dose optimization techniques: automated exposure control; mA and/or kV adjustment per patient size (includes targeted exams where dose is matched to clinical indication); or iterative reconstruction. Contrast material: OMNI 350; Contrast volume: 100 ml; Contrast route: INTRAVENOUS (IV); COMPARISON: CT chest w con* [id number] 06/21/2024 12:16 PM RADIATION DOSE METRICS: Total DLP (mGy-cm): 1372.7 FINDINGS: Lungs: Unremarkable. No consolidation. No masses. Pleural spaces: Unremarkable. No pneumothorax. No pleural effusion. Heart: Unremarkable. No cardiomegaly. No pericardial effusion. Lymph nodes: Unremarkable. No enlarged lymph nodes. Vasculature: See Soft tissues finding. Bones/joints: Unremarkable. No acute fracture. Soft tissues: Very large hematoma in the surgical bed of the left breast measuring 30.5 x 8.2 cm on greatest axial section. There is a very large tortuous vessel within the medial margin of the surgical bed likely to be the source of bleeding. No acute extravasation of contrast is appreciated on this study. Surgical drain noted. CT/CT chest w con* [id number] IMPRESSION: Large hematoma within the left breast surgical bed with large tortuous abnormal appearing vessel at the medial margin of this site.
--- NOTE | 2024-10-07 20:39 | ED_ITS ---
HPI - Wound/Laceration 2 General: Chief Complaint: Wound/Laceration Stated Complaint: DRAIN FILLING WITH CLOTS Time Seen by Provider: 10/07/24 20:32 Source: patient and EMS Mode of arrival: EMS Limitations: no limitations History of Present Illness: 49-year-old female with a history of vidal ast cancer the left breast she had a mastectomy 10 days ago she states that now her ago she started having pain at rest has had significant swelling and increased output from her drain over the last hour. Left breast is quite taut and swollen states this and just happen over the last 1 to 2 hours. She denies any fever she does have pain at the site she rates a 7 out of 10 is given pain meds and route has some mild hypotension here. Currently not on chemo Associated symptoms: Denies chills, fever(s), nausea or vomiting Related Data Home Medications ?Medication ?Instructions ?Recorded ?Confirmed bupropion HCl 300 mg 24 hr tablet, 300 mg PO DAILY 11/1208/18/24 extended release paroxetine HCl 40 mg tablet 40 mg PO DAILY 02/22/24 Previous Rx's ?Medication ?Instructions ?Recorded lorazepam 1 mg tablet 0.5 - 1 mg (0.5 - 1 x 1 mg) PO Q6H 04/02/24 PRN severe nausea #30 tabs apixaban 5 mg tablet 5 mg PO BID #60 tabs 4 amlodipine 5 mg tablet 2.5 mg (1/2 x 5 mg) PO DAILY #90 08/02/24 tabs potassium chloride 20 mEq 20 meq PO BID #60 tabs 08/17 tablet,extended release promethazine 12.5 mg rectal 12.5 mg MT TID PRN Refract ory 08/18/24 suppository nausea vomiting #12 ea diphenoxylate-atropine 2.5 1 tab PO Q6H #30 tabs 08/24 mg-0.025 mg tablet ondansetron 8 mg disintegrating 8 mg PO Q8H PRN nausea and 08/27/24 tablet vomiting #30 tabs Allergies Allergy/AdvReac Type Severity Reaction Status Date / Time avocado Allergy ALGY-Swell Verified 10/07/24 20:25 Lip/Tongue/Throat Review of Systems 2 Const: Denies: fever(s), chills, body aches or change in appetite ENMT: Denies: throat pain or dental pain Card: Denies: chest pain Resp: Denies: dyspnea GI: Denies: abdominal pain, nausea, vomiting or diarrhea Musc: Denies: neck pain or back pain Skin/Breast: Denies: rash Neuro: Denies: headache(s) Psych: Denies: depression PFSH ED 2 PFSH: Medical History Breast cancer Surgical History Port-A-Cath in place Hx of tubal ligation 1997 Hx of cholecystectomy 2012 Hx of hernia repair 2014 Family History Father Hypertension Diabetes Mother Hypertension Diabetes Social History Smoking and tobacco/nicotine status: former use of tobacco/nicotine Quit status (tobacco/nicotine): has quit using Former quit date comment: Previously smoked 1 pack per week; quit 30 yrs ago. Second hand smoke exposure: No Alcohol intake: current Substance/Drug Use: never Lives independently: Yes Household members: spouse Housing: Manufactured/Mobile home Marital status: Number of children: 3 Highest education level completed: Some College, No Degree Pets and animals: Yes Pets & animals: cat(s), dog(s) and guinea pig(s) Physical Exam 2 Const: COMMON NORMALS: no acute distress, patient oriented x3 and healthy appearing HENMT: COMMON NORMALS: normocephalic and atraumatic HEAD & SCALP: n ormocephalic and atraumatic Neck/C-Spine: COMMON NORMALS: full ROM and supple Chest: OTHER: incision to left breast c/d/i swelling noted to left breast no warmth to touch Resp: COMMON NORMALS: normal respiratory effort, No retractions, No use of accessory muscles and clear to auscultation bilaterally AUSCULTATION: clear to auscultation bilaterally Cardio: COMMON NORMALS: regular rate, regular rhythm and No murmurs present (Cardio) RATE: regular rate RHYTHM: regular rhythm GI: COMMON NORMALS: Normal to inspection, nondistended, normoactive bowel sounds present, Soft to palpation, non-tender and no masses PALPATION: Yes Soft to palpation Extremity: COMMON NORMALS: normal to inspection and full ROM Neuro: COMMON NORMALS: patient oriented x3, moves all extremities and no focal motor deficits Psych: COMMON NORMALS: mental status grossly normal, Normal thought process present and cooperative THOUGHT PROCESS: Normal thought process present Skin: COMMON NORMALS: no rashes or lesions noted and no wounds GENERAL SKIN EXAM: no rashes or lesions noted Course 2 Vital Signs: Vital signs: Vital Signs Temperature 98.0 F 10/07/24 20:15 Pulse Rate 93 10/07/24 21:30 Respiratory Rate 11 L 10/07/24 21:30 Blood Pressure 125/82 10/07/24 21:30 Pulse Oximetry 95 10/07/24 21:30 Oxygen Delivery Me thod Room Air 10/07/24 21:13 MDM - Wound/Laceration Medical Decision Making Patient presents here with a large breast hematoma she states started an hour ago it is quite large on the CT scan she was initially hypotensive her blood pressure here is now 125/82 hemoglobin was normal I did speak to Dr. Stevenson of surgery at [facility] also spoke to ER doctor will transfer ER to ER due to continued of care along with breast surgeon there Medical Records I reviewed the patient's medical records. Lab Data I reviewed the patient's lab results. 10/07/24 20:42 10/07/24 20:42 Radiology Impressions Chest X-Ray 10/07/24 20:33 IMPRESSION: No acute findings. Chest CT 10/07/24 20:38 IMPRESSION: Large hematoma within the left breast surgical bed with large tortuous abnormal appearing vessel at the medial margin of this site. Laboratory Results WBC 8.80 10^3/uL (3.29-11.43) 10/07/24 20:42 RBC 3.65 10^6/uL (3.85-5.65) L 10/07/24 20:42 Hgb 10.40 g/dL (11.27-16.99) L 10/07/24 20:42 Hct 34.1 % (36-47) L 10/07/24 20:42 MCV 93.4 fl (85-98) 10/07/24 20:42 MCH 28.5 pg (27-33) 10/07/24 20:42 MCHC 30.5 g/dL (30-55) 10/07/24 20:42 RDW 15.2 % (12.1-15.1) H 10/07/24 20:42 Plt Count 340 10^3/cmm (157-399) 10/07/24 20: MPV 9.8 fL (7.4-10.4) 10/07/24 20:42 Neut % (Auto) 69.0 % 10/07/24 20: Lymph % (Auto) 21.4 % 10/07/24 20: [place] % (Auto) 5.3 % 10/07/24 20:42 Eos % (Auto) 3.3 % 10/07/24 20: Baso % (Auto) 0.5 % 10/07/24: Neut # (Auto) 6.08 10^3/uL (1.8-7.7) 10/07/24 20: Lymph # (Auto) 1.9 10^3/uL (0.8-4.8) 10/07/24 20: [place] # (Auto) 0.5 10^3/uL (0.2-0.9) 10/07/24 20: Eos # (Auto) 0.3 10^3/uL (0.0-0.8) 10/07/24: Baso # (Auto) 0.0 10^3/uL (0.0-0.1) 10/07/24 20: Nucleated RBC % (auto) 0 % 10/07/24: Nucleated RBCs # 0.0 /100WBC 10/07/24: PT 14.50 SECONDS (12.1-14.9) 10/07/24 20: INR 1.06 (0.8-1.2) 10/07/24 20: Sodium 137 mmol/L (136-145) 10/07/24 20: Potassium 4.3 mmol/L (3.5-5.1) 10/07/24 20: Chloride 101 mmol/L (98-107) 10/07/24 20: Carbon Dioxide 22 mmol/L (22-29) 10/07/24 20: Anion Gap 18.3 (5-19) 10/07/24 20: BUN 16 mg/dL (6-20) 10/07/24 20:42 Creatinine 1.0 mg/dL (0.5-0.9) H 10/07/24 20:42 GFR Calculation 58.9 mL/min (90-130) L 10/07/24 20:42 Glucose 153 mg/dL (65-115) H 10/07/24 20:42 Calculated Osmolality 288 mOsm/kg (285-295) 10/07/24 20:42 Lactic Acid 2.0 mmol/L (0.5-2.2) 10/07/24 20:42 Calcium 9.5 mg/dL (8.5-10.5) 10/07/24 20:42 Total Bilirubin 0.3 mg/dL (0.15-1.2) 10/07/24 20:42 AST 15 U/L (0-32) 10/07/24 20:42 ALT 15 U/L (0-33) 10/07/24 20:42 Alkaline Phosphatase 71 U/L (35-105) 10/07/24 20:42 Total Protein 6.6 g/dL (6.6-8.7) 10/07/24 20:42 Albumin 3.6 g/dL (3.5-5.2) 10/07/24 20:42 Globulin 3.0 g/dL (1.3-4.6) 10/07/24 20:42 All radiology interpretation(s) finalized by discharge EKG Data EKG 1: I personally reviewed and interpreted this EKG as follows: EKG interpretation date: 10/07/24 EKG interpretation time: 20:24 Interpretation: sinus tach hr [address] elevation qrs 89 qtc 390 Critical Care Time 2 Critical Care Time: Critical Care Time: Yes Total Critical Care Time: 40 Attestation: The high probability of a clinically significant, sudden or life threatening deterioration of the patient's heme system(s) required my full and direct attention, intervention and personal management. The critical care time is as shown. This time is in addition to time spent performing any reported procedures but includes the following: [x] Data and vital sign review and interpretation [x] Patient assessment, examination and intervention [x] Documentation [x] Medication orders and management Discharge Plan Discharge Patient Disposition: Xfer Short-Term Hosp Clinical Impression: Breast haematoma after procedure Condition: Stable Prescriptions: No Action bupropion HCl 300 mg tablet extended release 24 hr 300 mg PO DAILY paroxetine HCl 40 mg tablet 40 mg PO DAILY lorazepam 1 mg tablet 0.5 - 1 mg PO Q6H PRN (Reason: severe nausea) Qty: 30 2RF apixaban 5 mg tablet 5 mg PO BID Qty: 60 3RF potassium chloride 20 mEq tablet extended release 20 meq PO BID Qty: 60 0RF amlodipine 5 mg tablet 2.5 mg PO DAILY Qty: 90 0RF diphenoxylate-atropine 2.5-0.025 mg tablet 1 tab PO Q6H Qty: 30 0RF ondansetron 8 mg tablet,disintegrating 8 mg PO Q8H PRN (Reason: nausea and vomiting) Qty: 30 2RF Rx Instructions: Do not take 2 days after receiving treatment promethazine 12.5 mg suppository 12.5 mg MT TID PRN (Reason: Refractory nausea vomiting) Qty: 12 0RF Rx Instructions: do not give 3rd daily dose after evening meal or within 4hr before bed Use if unable to keep your main antiemetics down Print Language: Greenlandic Coding Level of Care Code ED Emergency Management System Director for Mat Sanon
[2024-10-07 20:49] LABS: Basophils % 0.5 %; Eosinophils # 0.3 10^3/uL (0.0-0.8); Eosinophils % 3.3 %; Hematocrit 34.1 % (36-47); Lymphocytes # 1.9 10^3/uL (0.8-4.8); Lymphocytes % 21.4 %; Mean Corpuscular HGB Conc 30.5 g/dL (30-55); Mean Corpuscular Hemoglobin 28.5 pg (27-33); Mean Corpuscular Volume 93.4 fl (85-98); Mean Platelet Volume 9.8 fL (7.4-10.4); Monocytes # 0.5 10^3/uL (0.2-0.9); Monocytes % 5.3 %; Neutrophils # 6.08 10^3/uL (1.8-7.7); Nucleated Red Blood Cells % 0 %; Platelet Count 340 10^3/cmm (157-399); Red Blood Count 3.65 10^6/uL (3.85-5.65); Red Cell Distribution Width 15.2 % (12.1-15.1)
[2024-10-07 21:02] LABS: INR 1.06 (0.8-1.2)
[2024-10-07 21:06] LABS: Alanine Aminotransferase 15 U/L (0-33); Albumin Level 3.6 g/dL (3.5-5.2); Alkaline Phosphatase 71 U/L (35-105); Anion Gap 18.3 (5-19); Aspartate Amino Transferase 15 U/L (0-32); Blood Urea Nitrogen 16 mg/dL (6-20); Calcium 9.5 mg/dL (8.5-10.5); Carbon Dioxide 22 mmol/L (22-29); Chloride 101 mmol/L (98-107); Creatinine Clr Calc Pharmacy 113.1906; Glomerular Filtration Rate 58.9 mL/min (90-130); Glucose 153 mg/dL (65-115); Osmolality Calculated 288 mOsm/kg (285-295); Potassium 4.3 mmol/L (3.5-5.1); Sodium 137 mmol/L (136-145); Total Bilirubin 0.3 mg/dL (0.15-1.2); Total Protein 6.6 g/dL (6.6-8.7)
[2024-10-07] MEDS: morphine 4 mg/mL SDV 1 mL IVP (21:40)
[2024-10-07] MEDS: ondansetron 2 mg/ML SDV 2 mL 4 MG IVP (21:42)
[2024-10-07] MEDS: sodium chloride 0.9% 1,000 ML 999 ML IV (21:44)
[2024-10-07 23:07] LABS: Hematocrit 28.3 % (36-47)
--- NOTE | 2024-10-07 23:08 | PC.NURSE ---
1108 1UNIT OF BLOOD INFUSION STARTED 75ML/HR V/S 94HR 21RR 89/71BP 98.3 TEMP
--- NOTE | 2024-10-07 23:27 | PC.NURSE ---
2327 PT BEING TRANSFERRED VIA EMS WITH BLOOD TRANSFUSION CONTINUED @150 MLS/HR IN ROUTE
[2024-10-08 00:12] VITALS: BP 123/93; PULSE 96; RESP 20; O2SAT 95
== END 2024-10-07 23:30 | disposition short-term general hospital (02) ==
PROVIDERS: Emergency Provider Emergency Medicine
DX: L76.32 Postprocedural hematoma of skin and subcutaneous tissue following other procedure (principal); Z87.891 Personal history of nicotine dependence; Z85.3 Personal history of malignant neoplasm of breast
CPT/HCPCS: 36415; 36430; 71045; 71260; 80053; 83605; 85014; 85018; 85025; 85610; 86850; 86900; 86920; 93005; 96361; 96374; 96375; 99285; J2270; J2405; J7030; P9016

== ENCOUNTER 2024-11-19 08:48 | Oncology outpatient (recurring) (ONCR) | payer BC, MEDICAID, SELFPAY ==
[2024-11-06 13:27] LABS: Basophils % 0.7 %; Eosinophils # 0.1 10^3/uL (0.0-0.8); Eosinophils % 2.3 %; Hematocrit 30.2 % (36-47); Lymphocytes # 1.5 10^3/uL (0.8-4.8); Lymphocytes % 34.4 %; Mean Corpuscular HGB Conc 30.1 g/dL (30-55); Mean Corpuscular Hemoglobin 26.7 pg (27-33); Mean Corpuscular Volume 88.6 fl (85-98); Mean Platelet Volume 9.7 fL (7.4-10.4); Monocytes # 0.4 10^3/uL (0.2-0.9); Monocytes % 9.1 %; Neutrophils # 2.27 10^3/uL (1.8-7.7); Neutrophils % 53.3 %; Nucleated Red Blood Cells % 0 %; Platelet Count 261 10^3/cmm (157-399); Red Blood Count 3.41 10^6/uL (3.85-5.65); Red Cell Distribution Width 17.3 % (12.1-15.1); White Blood Count 4.27 10^3/uL (3.29-11.43)
[2024-11-06 13:48] LABS: Alanine Aminotransferase 12 U/L (0-33); Albumin Level 3.9 g/dL (3.5-5.2); Alkaline Phosphatase 67 U/L (35-105); Anion Gap 16.3 (5-19); Aspartate Amino Transferase 14 U/L (0-32); Blood Urea Nitrogen 12 mg/dL (6-20); Calcium 9.1 mg/dL (8.5-10.5); Carbon Dioxide 23 mmol/L (22-29); Chloride 106 mmol/L (98-107); Glomerular Filtration Rate 88.9 mL/min (90-130); Glucose 120 mg/dL (65-115); Osmolality Calculated 295 mOsm/kg (285-295); Potassium 3.3 mmol/L (3.5-5.1); Sodium 142 mmol/L (136-145); Total Bilirubin 0.3 mg/dL (0.15-1.2); Total Protein 6.9 g/dL (6.6-8.7)
--- NOTE | 2024-11-19 10:11 | N.ONRAD NP_ITS ---
Radiation Oncology New Patient Visit Patient: Ara Stephen MR#: [id number] : 1975> Age: 49> Sex: Female> Dictated by: Dr. Chiqui Marrufo Date of Service: 11/19/2024 Referring Physician(s) : Jonathan Diagnosis: Infiltrating ductal carcinoma the breast status post neoadjuvant chemotherapy Radiotherapy to date: Summary > No prior radiation therapy. Chief Complaint / History of Present Illness: Patient is a 49-year-old lady who was originally diagnosed in January 2024 with a grade 3 ER/NE negative H ER 2 positive locally advanced breast cancer. By mid March she had started neoadjuvant chemotherapy and was able to complete 6 cycles of TCHP. She then on September 27 underwent mastectomy with axillary dissection. By October 07 just 10 days after surgery she had a massive bleed into the chest wall. This happened quite quickly in less than a 20 to 30-minute window. She was sent back to [facility] where the area was opened and an additional 1500 cc of blood was drained. She was subsequently sent home and within a week and a half she had the development of swelling and initially clear fluid that drained. This subsequently changed to a puslike fluid which drained considerably. She went back to the hospital at that time and was opened yet again. She initially had a wound VAC for which she had to have this removed for surgery. She has over the course of this had 4 different drains. She is currently still packing the area which is actually 3 different incisions. She is here today to discuss postoperative radiation for locally advanced breast cancer. At the time of her mastectomy there is no malignancy remaining in the specimen or in the nodes. Current Medications: amlodipine 2.5 mg (1/2 x 5 mg) PO DAILY apixaban 5 mg PO BID bupropion HCl XL 300 mg PO DAILY diphenoxylate-atropine 2.5-0.025 mg 1 tab PO Q6H lorazepam 0.5 - 1 mg (0.5 - 1 x 1 mg) PO Q6H PRN ondansetron 8 mg PO Q8H PRN paroxetine HCl 40 mg PO DAILY potassium chloride ER 20 mEq PO BID promethazine 12.5 mg NE TID PRN Allergies: avocado Allergy ALGY-Swell Lip/Tongue/Throat Medical History: Breast cancer Surgical History: Port-A-Cath in place Hx of tubal ligation 1997 Hx of cholecystectomy 2012 Hx of hernia repair 2015 Family History: Father Hypertension Diabetes Mother Hypertension Diabetes Social History: Smoking and tobacco/nicotine status: former use of tobacco/nicotine Quit status (tobacco/nicotine): has quit using Former quit date comment: Previously smoked 1 pack per week; quit 30 yrs ago. Second hand smoke exposure: No Alcohol intake: current Substance/Drug Use: never Lives independently: Yes Household members: spouse Housing: Manufactured/Mobile home Marital status: Number of children: 3 Highest education level completed: Some College, No Degree Pets and animals: Yes Pets & animals: cat(s), dog(s) and guinea pig(s) Current Complaints / Review of Systems: . Vital Signs: Performed on 11/19/2024 9:02 AM BMI - 59.485 kg/m2 (high), Height - 67 in, Weight - 379.8 lbs, Temperature - 96.4 f, Pulse - 87 /min, Respiration - 18 /min, O2 Sat - 97 %, Pain - 1, Fatigue - 0 and BP - 148/ 92 mm(hg)(high). Physical Exam: General: Patient is in no apparent distress. She is companied by her and her grandson HEENT: Normocephalic atraumatic. Pupils are equal round reactive to light. Extraocular muscles intact. Skin: Warm and dry. Chest wall: She has multiple bandages across the area. There is no surrounding erythema noted. There is no moisture or drainage on the bandages. Pulmonary: Respiratory rate is regular nonlabored Cardiovascular: Regular rate and rhythm Abdomen: Moderately protuberant and android pattern Extremities: Without edema or lymphedema. Her range of motion in the left shoulder is decreased. She can barely get it to 90 degrees. Neurological: Alert and orient x 3. Gait and speech within normal limits Psych: Affect appropriate for current situation Performance Status: 90 Pathology: Lab: Imaging: See HPI Impression: Locally advanced breast cancer with complete response to neoadjuvant chemotherapy and complicated course after mastectomy Plan: I reviewed with the patient the role of radiation in her case. We talked about how the target would be the skin and the underlying tissue. We reviewed the simulation process. We discussed the daily treatment regiment. We reviewed the risks and side effects both acute and long-term. We talked about all the things that she has had happen. We also discussed how she would need to be nearly completely healed before we started treatment. At this point of asked her to call when she is no longer able to pack any additional gauze into the wounds. Will then reevaluate to see if she is ready to start treatment. Signed by: 11/19/2024 10:09:57 AM <<Signature on File>> Time spent on patient:60 CPT Code: * CPT Code: *
== END 2024-11-19 23:59 | disposition home or self-care (01) ==
PROVIDERS: Visit Provider Internal Medicine Medical Oncology
DX: Z53.9 Procedure and treatment not carried out, unspecified reason (principal)
CPT/HCPCS: 36415; 80053; 85025

== ENCOUNTER 2024-12-18 11:17 | Oncology outpatient (recurring) (ONCR) | payer BC, MEDICAID, SELFPAY ==
[2024-11-27 08:59] LABS: Basophils % 0.4 %; Eosinophils # 0.1 10^3/uL (0.0-0.8); Eosinophils % 1.9 %; Lymphocytes % 41.7 %; Mean Corpuscular Volume 83.3 fl (85-98); Mean Platelet Volume 9.3 fL (7.4-10.4); Monocytes # 0.3 10^3/uL (0.2-0.9); Monocytes % 6.5 %; Neutrophils # 2.36 10^3/uL (1.8-7.7); Neutrophils % 49.5 %; Nucleated Red Blood Cells % 0 %; Platelet Count 242 10^3/cmm (157-399); Red Blood Count 4.08 10^6/uL (3.85-5.65); Red Cell Distribution Width 16.4 % (12.1-15.1); White Blood Count 4.77 10^3/uL (3.29-11.43)
[2024-11-27 09:14] LABS: Alanine Aminotransferase 15 U/L (0-33); Alkaline Phosphatase 59 U/L (35-105); Anion Gap 14.7 (5-19); Aspartate Amino Transferase 15 U/L (0-32); Blood Urea Nitrogen 19 mg/dL (6-20); Calcium 9.3 mg/dL (8.5-10.5); Carbon Dioxide 24 mmol/L (22-29); Chloride 104 mmol/L (98-107); Creatinine Clr Calc Pharmacy 162.5363; Globulin 3.3 g/dL (1.3-4.6); Glomerular Filtration Rate 88.9 mL/min (90-130); Glucose 125 mg/dL (65-115); Osmolality Calculated 292 mOsm/kg (285-295); Potassium 3.7 mmol/L (3.5-5.1); Sodium 139 mmol/L (136-145); Total Bilirubin 0.2 mg/dL (0.15-1.2); Total Protein 7.3 g/dL (6.6-8.7)
[2024-11-27] MEDS: diphenhydrAMINE 25 mg Capsule PO (10:37)
[2024-11-27] MEDS: acetaminophen 325 mg Tablet 650 MG PO (10:38)
[2024-11-27] MEDS: pertuzumab-trastuzumab-hy-zzxf (60 mg-60mg-2000 units/mL) 10mL 600 MG SUBCUT (11:16)
[2024-12-18 11:42] LABS: Basophils % 0.4 %; Eosinophils # 0.1 10^3/uL (0.0-0.8); Eosinophils % 1.9 %; Hematocrit 35.1 % (36-47); Lymphocytes # 1.6 10^3/uL (0.8-4.8); Lymphocytes % 31.1 %; Mean Corpuscular HGB Conc 30.2 g/dL (30-55); Mean Corpuscular Hemoglobin 23.6 pg (27-33); Mean Corpuscular Volume 78.2 fl (85-98); Mean Platelet Volume 9.3 fL (7.4-10.4); Monocytes # 0.5 10^3/uL (0.2-0.9); Monocytes % 9.5 %; Neutrophils % 56.9 %; Nucleated Red Blood Cells % 0 %; Platelet Count 261 10^3/cmm (157-399); Red Blood Count 4.49 10^6/uL (3.85-5.65); Red Cell Distribution Width 17.1 % (12.1-15.1); White Blood Count 5.27 10^3/uL (3.29-11.43)
[2024-12-18 11:58] LABS: Alanine Aminotransferase 20 U/L (0-33); Alkaline Phosphatase 74 U/L (35-105); Anion Gap 15.9 (5-19); Aspartate Amino Transferase 20 U/L (0-32); Blood Urea Nitrogen 12 mg/dL (6-20); Calcium 9.5 mg/dL (8.5-10.5); Carbon Dioxide 24 mmol/L (22-29); Chloride 102 mmol/L (98-107); Creatinine Clr Calc Pharmacy 118.3417; Globulin 3.6 g/dL (1.3-4.6); Glomerular Filtration Rate 76.2 mL/min (90-130); Glucose 95 mg/dL (65-115); Osmolality Calculated 286 mOsm/kg (285-295); Potassium 3.9 mmol/L (3.5-5.1); Sodium 138 mmol/L (136-145); Total Bilirubin 0.2 mg/dL (0.15-1.2); Total Protein 7.6 g/dL (6.6-8.7)
[2024-12-18] MEDS: acetaminophen 325 mg Tablet 650 MG PO (13:01)
[2024-12-18] MEDS: diphenhydrAMINE 25 mg Capsule PO (13:01)
[2024-12-18] MEDS: pertuzumab-trastuzumab-hy-zzxf (60 mg-60mg-2000 units/mL) 10mL 600 MG SUBCUT (13:41)
--- NOTE | 2024-12-18 14:38 | ONCRAD EPV_ITS ---
Radiation Oncology Established Patient Visit Patient: Zafar Bullock [id number] : 1975> Age: 49> Sex: Female> Dictated by: Kb Sherman Date of Service: 12/18/2024 Referring Physician(s) : Diagnosis: C50.912 - Malignant neoplasm of unspecified site of left female breast, Diagnosed 11/19/2024 (Active) C77.3 - Secondary and unspecified malignant neoplasm of axilla and upper limb lymph nodes, Diagnosed 11/19/2024 (Active) Radiotherapy to Date: NONE Current History: : Patient is a 49-year-old lady who was originally diagnosed in January 2024 with a grade 3 ER/MT negative H ER 2 positive locally advanced breast cancer. By mid March she had started neoadjuvant chemotherapy and was able to complete 6 cycles of TCHP. She then on September 27 underwent mastectomy with axillary dissection. By October 07 just 10 days after surgery she had a massive bleed into the chest wall. This happened quite quickly in less than a 20 to 30-minute window. She was sent back to [facility] where the area was opened and an additional 1500 cc of blood was drained. She was subsequently sent home and within a week and a half she had the development of swelling and initially clear fluid that drained. This subsequently changed to a puslike fluid which drained considerably. She went back to the hospital at that time and was opened yet again. She initially had a wound VAC for which she had to have this removed for surgery. She has over the course of this had 4 different drains. She is currently still packing the area which is actually 3 different incisions. She is here today to discuss postoperative radiation for locally advanced breast cancer. At the time of her mastectomy there is no malignancy remaining in the specimen or in the nodes. 12/18/2024-this 49-year-old female comes back as she continues to heal from her left sided mastectomy. She has an everted T healing type incision with 3 spots that are half a centimeter and getting smaller. She states she is much improved since her last visit. We would recommend holding another week for simulation as she will have bolus therapy to the chest wall. Current Medications: - Last Reconciled 12/18/24 by Tessa Alves MA amlodipine 2.5 mg (1/2 x 5 mg) PO DAILY apixaban 5 mg PO BID bupropion HCl XL 300 mg PO DAILY diphenoxylate-atropine 2.5-0.025 mg 1 tab PO Q6H lorazepam 0.5 - 1 mg (0.5 - 1 x 1 mg) PO Q6H PRN ondansetron 8 mg PO Q8H PRN paroxetine HCl 40 mg PO DAILY potassium chloride ER mEq PO Allergies: avocado Allergy (Verified 12/18/24 11:43) ALGY-Swell Lip/Tongue/Throat Current Complaints / Review of Systems: . Vital Signs: Performed on 12/18/2024 12:41 PM BMI - 44.168 kg/m2 (high), Height - 67 in, Weight - 282 lbs, Temperature - 98.4 f, Pulse - 81 /min, Respiration - 18 /min, O2 Sat - 98 %, Pain - 2, Fatigue - 0 and BP - 152/ 93 mm(hg)(high). Physical Exam:AAOx3. BREAST: Inverted T scar of the left chest wall is healing there is 3 areas that are approximately 0.5 cm in size with each segment having 1 at the healing areas. General: Alert and oriented x 3. No acute distress. HEENT: Normocephalic, atraumatic. Extraocular Movements Intact: Pupils Equal, Round, Reactive to Light and Accommodation: Sclerae anicteric. Oral cavity is clear without lesions, masses or ulcers. NECK: Supple without supraclavicular or jugular lymphadenopathy. LUNGS: Clear to auscultation bilaterally without rales, rhonchi or wheeze. HEART: Regular rate and rhythm, normal S1 and S2 without murmur, gallop or rub. MUSCULOSKELETAL: No tenderness or percussion pain over the axial skeleton, scapulae or pelvis. ABDOMEN: Soft, nontender, nondistended without masses or organomegaly. Bowell sounds are present. EXTREMITIES: No peripheral edema is identified. Limited motor and sensory examination are grossly intact and symmetric bilaterally. Able to place both upper extremities and treating position without difficulty. NEUROLOGIC: Cranial nerves II ???XII are grossly intact. Normal sensation, strength 5/5 in all extremities, normal gait, no ataxia. Performance Status: KPS 90 Lab: None pending. Pathology: Primary, c50.912 - malignant neoplasm of unspecified site of left female breast, Diagnosed 11/19/2024 (active) and Primary, c77.3 - secondary and unspecified malignant neoplasm of axilla and upper limb lymph nodes, Diagnosed 11/19/2024 (active) . Imaging: See HPI Impression: Continuing healing left mastectomy (T) inverted scar with 3 sites PLAN: Continue healing process Return for CT SIM on 12/24/2024. Signed by: 12/18/2024 2:36:23 PM <<Signature on File>> Time spent with patient: CPT Code: * CPT Code: *
== END 2024-12-18 23:59 | disposition home or self-care (01) ==
PROVIDERS: Nurse Practitioner Family; Visit Provider Internal Medicine Medical Oncology
DX: Z53.9 Procedure and treatment not carried out, unspecified reason; Z51.12 Encounter for antineoplastic immunotherapy; C50.412 Malignant neoplasm of upper-outer quadrant of left female breast; Z17.1 Estrogen receptor negative status [ER-]; C77.3 Secondary and unspecified malignant neoplasm of axilla and upper limb lymph nodes; Z90.12 Acquired absence of left breast and nipple
CPT/HCPCS: 36415; 80053; 85025; 96401; 96402; 96409; 99213; J9316; J9999

== ENCOUNTER 2025-01-08 12:23 | Oncology outpatient (recurring) (ONCR) | payer BC, MEDICAID, SELFPAY ==
[2025-01-08 13:35] LABS: Basophils % 0.6 %; Eosinophils # 0.1 10^3/uL (0.0-0.8); Eosinophils % 1.9 %; Hematocrit 36.8 % (36-47); Lymphocytes # 1.6 10^3/uL (0.8-4.8); Lymphocytes % 33.2 %; Mean Corpuscular HGB Conc 30.2 g/dL (30-55); Mean Corpuscular Hemoglobin 23.5 pg (27-33); Mean Corpuscular Volume 77.8 fl (85-98); Mean Platelet Volume 9.9 fL (7.4-10.4); Monocytes # 0.4 10^3/uL (0.2-0.9); Monocytes % 7.6 %; Neutrophils # 2.67 10^3/uL (1.8-7.7); Neutrophils % 56.5 %; Nucleated Red Blood Cells % 0 %; Platelet Count 269 10^3/cmm (157-399); Red Blood Count 4.73 10^6/uL (3.85-5.65); Red Cell Distribution Width 19.4 % (12.1-15.1); White Blood Count 4.73 10^3/uL (3.29-11.43)
[2025-01-08 13:53] LABS: Estmated Average Glucose 120; Hemoglobin A1C 5.8 % (4.0-6.0)
[2025-01-08 14:10] LABS: 25 Hydroxy Vitamin D 26 ng/mL (30-100); Alanine Aminotransferase 18 U/L (0-33); Albumin Level 4.1 g/dL (3.5-5.2); Alkaline Phosphatase 75 U/L (35-105); Anion Gap 17.8 (5-19); Aspartate Amino Transferase 22 U/L (0-32); Blood Urea Nitrogen 17 mg/dL (6-20); Calcium 9.5 mg/dL (8.5-10.5); Carbon Dioxide 22 mmol/L (22-29); Chloride 103 mmol/L (98-107); Chol HDL Ratio 4.67 mg/dL (0.0-4.40); Cholesterol 201 mg/dL (0-200); Creatinine Clr Calc Pharmacy 142.7065; Globulin 3.4 g/dL (1.3-4.6); Glomerular Filtration Rate 76.2 mL/min (90-130); Glucose 91 mg/dL (65-115); HDL Cholesterol 43 mg/dL (60-100); Iron 43 ug/dL (37-145); LDL Cholesterol Calculated 132 mg/dL (50-129); Osmolality Calculated 289 mOsm/kg (285-295); Percent Saturation 11.5 % (20-50); Potassium 3.8 mmol/L (3.5-5.1); Sodium 139 mmol/L (136-145); Thyroid Stimulating Hormone 0.82 uIU/mL (0.27-4.20); Total Bilirubin 0.3 mg/dL (0.15-1.2); Total Iron Binding Capacity 372 mcg/dl; Total Protein 7.5 g/dL (6.6-8.7); Triglycerides 128 mg/dL (0-150); Unsaturated Iron Binding 329 ug/dL (112-347); VLDL Cholestrol Calculation 26 mg/dL (0-30)
--- NOTE | 2025-01-08 14:43 | ONCRAD TMN_ITS ---
Radiation Oncology Weekly Treatment Management Patient: Ara Stephen MR#: [id number] : 1975 Attending Physician: Dr. Tyshawn Villalba Date of Service: 01/08/2025 Referring Physician(s) : Diagnosis: C50.912 - Malignant neoplasm of unspecified site of left female breast, Diagnosed 11/19/2024 (Active) C77.3 - Secondary and unspecified malignant neoplasm of axilla and upper limb lymph nodes, Diagnosed 11/19/2024 (Active) Clinical ST II(T3, N0, M0) IDC of left breast. Following NACT she underwent left mastectomy and ALNS with a pathologic CR seen. No residual malignancy seen. Postop hemorrhage and wound dehiscence . Now well healed. Radiotherapy to date: Course: L chest wall, Treatment Site: LSClav/PAB, Ref. ID: PTV SClav, Energy: 15X/6X, Dose/Fx (cGy): 180, #Fx: 25, Dose Correction (cGy): 0, Total Dose Delivered (cGy): 180, Start Date: 01/08/2025, Elapsed Days: 0 Course: L chest wall, Treatment Site: LCW Bolus, Ref. ID: PTV Chestwall, Energy: 15X/6X, Dose/Fx (cGy): 200, #Fx: , Dose Correction (cGy): 0, Total Dose Delivered (cGy): 200, Start Date: 01/08/2025, Elapsed Days: 0 Reason for visit: The patient is being seen today as part of their regularly scheduled weekly on treatment visits to assess for acute toxicities from radiotherapy. Review of Systems: Doing well. Active at home with grandchildren. Vital Signs: Performed on 01/08/2025 1:34 PM BMI - 59.83 kg/m2 (high), Height - 67 in, Weight - 382 lbs, Temperature - 98.7 f, Pulse - 89 /min, Respiration - 17 /min, O2 Sat - 97 %, Pain - 6, Fatigue - 0 and BP - 174/ 85 mm(hg)(high/). Physical Exam: Left mastectomy well healed. Incisions closed with linear erythema along healed incisions. Skin clear. Imaging: Radiation therapy imaging related to accurate target localization (i.e. KV, MV and CBCT) was reviewed. Appropriate changes, if any, were made to ensure treatment accuracy. Plan: Continue treatment as planned. Signed by: Dr. Tyshawn Villalba 01/08/2025 2:42:11 PM
[2025-01-08] MEDS: diphenhydrAMINE 25 mg Capsule PO (14:48)
[2025-01-08] MEDS: acetaminophen 325 mg Tablet 650 MG PO (14:48)
[2025-01-08] MEDS: pertuzumab-trastuzumab-hy-zzxf (60 mg-60mg-2000 units/mL) 10mL 600 MG SUBCUT (15:01)
== END 2025-01-08 23:59 | disposition home or self-care (01) ==
PROVIDERS: Nurse Practitioner; Visit Provider Internal Medicine Medical Oncology
DX: Z53.9 Procedure and treatment not carried out, unspecified reason; Z51.0 Encounter for antineoplastic radiation therapy; Z51.12 Encounter for antineoplastic immunotherapy; C50.412 Malignant neoplasm of upper-outer quadrant of left female breast; Z17.1 Estrogen receptor negative status [ER-]; E55.9 Vitamin D deficiency, unspecified; R73.9 Hyperglycemia, unspecified; D64.9 Anemia, unspecified; E61.1 Iron deficiency
CPT/HCPCS: 36415; 77280; 77295; 77300; 77334; 77387; 77412; 80053; 80061; 82306; 83036; 83540; 83550; 84443; 85025; 96402; J9316; J9999

== ENCOUNTER 2025-01-18 08:40 | Oncology outpatient (recurring) (ONCR) | payer BC, MEDICAID, SELFPAY ==
--- NOTE | 2025-01-15 09:14 | ONCRAD TMN_ITS ---
Radiation Oncology Weekly Treatment Management Patient: Zafar Mittal MR#: [id number] : 1975> Attending Physician: Kb Sherman Date of Service: 01/15/2025 Referring Physician(s) : Diagnosis: C50.912 - Malignant neoplasm of unspecified site of left female breast, Diagnosed 11/19/2024 (Active) C77.3 - Secondary and unspecified malignant neoplasm of axilla and upper limb lymph nodes, Diagnosed 11/19/2024 (Active) Radiotherapy to date: Course: L chest wall Treatment Site: LSClav/PAB, Ref. ID: PTV SClav, Energy: 15X/6X, Dose/Fx (cGy): 180, #Fx: 25, Dose Correction (cGy): 0, Total Dose Delivered (cGy): 900, Start Date: 01/08/2025, Elapsed Days: 7 Course: L chest wall, Treatment Site: LCW Bolus, Ref. ID: PTV Chestwall, Energy: 15X/6X, Dose/Fx (cGy): 200, #Fx: , Dose Correction (cGy): 0, Total Dose Delivered (cGy): 1,000, Start Date: 01/08/2025, Elapsed Days: 7 Reason for visit: The patient is being seen today as part of their regularly scheduled weekly on treatment visits to assess for acute toxicities from radiotherapy. Review of Systems: No voice complaints. She had labs obtained on the and labs were adequate for treatment. Vital Signs: Performed on 01/15/2025 9:06 AM BMI - 59.423 kg/m2 (high), Height - 67 in, Weight - 379.4 lbs, Temperature - 96.6 f, Pulse - 77 /min, Respiration - 18 /min, O2 Sat - 97 %, Pain - 0, Fatigue - 0 and BP - 115/ 65 mm(hg). Physical Exam: AAOx3. Skin has healed where she had failed 3 little spots on her incision. Skin is nonerythematous. She is using creams daily Imaging: Radiation therapy imaging related to accurate target localization (i.e. KV, MV and CBCT) was reviewed. Appropriate changes, if any, were made to ensure treatment accuracy. Plan: Continue XRT Continue Aquaphor Signed by: Kb Sherman 01/15/2025 9:13:00 AM
== END 2025-01-19 23:59 | disposition home or self-care (01) ==
PROVIDERS: Visit Provider Radiology Radiation Oncology
DX: Z51.12 Encounter for antineoplastic immunotherapy (principal); C50.412 Malignant neoplasm of upper-outer quadrant of left female breast; Z17.1 Estrogen receptor negative status [ER-]; I82.C13 Acute embolism and thrombosis of internal jugular vein, bilateral; Z79.899 Other long term (current) drug therapy; Z51.0 Encounter for antineoplastic radiation therapy; C77.3 Secondary and unspecified malignant neoplasm of axilla and upper limb lymph nodes; Z53.9 Procedure and treatment not carried out, unspecified reason
CPT/HCPCS: 77336; 77387; 77412

== ENCOUNTER 2025-01-29 11:45 | Oncology outpatient (recurring) (ONCR) | payer BC, MEDICAID, SELFPAY ==
--- NOTE | 2025-01-22 09:23 | ONCRAD TMN_ITS ---
Radiation Oncology Weekly Treatment Management Patient: Ara Stephen MR#: [id number] : 1975 Attending Physician: Kb Sherman Date of Service: 01/22/2025 Referring Physician(s) : Diagnosis: C50.912 - Malignant neoplasm of unspecified site of left female breast, Diagnosed 11/19/2024 (Active) C77.3 - Secondary and unspecified malignant neoplasm of axilla and upper limb lymph nodes, Diagnosed 11/19/2024 (Active) Radiotherapy to date: Course: L chest wall, Treatment Site: LSClav/PAB, Ref. ID: PTV SClav, Energy: 15X/6X, Dose/Fx (cGy): 180, #Fx: 25, Dose Correction (cGy): 0, Total Dose Delivered (cGy): 1,800, Start Date: 01/08/2025, Elapsed Days: 14 Course: L chest wall, Treatment Site: LCW Bolus, Ref. ID: PTV Chestwall, Energy: 15X/6X, Dose/Fx (cGy): 200, #Fx: 25, Dose Correction (cGy): 0, Total Dose Delivered (cGy): 2,000, Start Date: 01/08/2025, Elapsed Days: 14 Reason for visit: The patient is being seen today as part of their regularly scheduled weekly on treatment visits to assess for acute toxicities from radiotherapy. Review of Systems: Patient likes her Aquaphor spray. She has noted mild skin breakdown that intersection of the inverted T in similar area that she had prior to starting radiation Vital Signs: Performed on 01/22/2025 8:57 AM BMI - 59.736 kg/m2 (high), Height - 67 in, Weight - 381.4 lbs, Temperature - 97.2 f, Pulse - 82 /min, Respiration - 18 /min, O2 Sat - 96 %, Pain - 0, Fatigue - 0 and BP - 125/ 82 mm(hg). Physical Exam: AAOx3. Skin as above. Mild erythema Imaging: Radiation therapy imaging related to accurate target localization (i.e. KV, MV and CBCT) was reviewed. Appropriate changes, if any, were made to ensure treatment accuracy. Plan: Continue Aquaphor spray liberally Continue XRT Signed by: Kb Sherman 01/22/2025 9:21:35 AM
[2025-01-29 10:39] LABS: Basophils % 0.8 %; Eosinophils # 0.1 10^3/uL (0.0-0.8); Eosinophils % 2.3 %; Hematocrit 39.9 % (36-47); Lymphocytes # 0.9 10^3/uL (0.8-4.8); Lymphocytes % 17.7 %; Mean Corpuscular HGB Conc 30.6 g/dL (30-55); Mean Corpuscular Hemoglobin 24.3 pg (27-33); Mean Corpuscular Volume 79.5 fl (85-98); Mean Platelet Volume 9.2 fL (7.4-10.4); Monocytes # 0.4 10^3/uL (0.2-0.9); Monocytes % 8.6 %; Neutrophils # 3.43 10^3/uL (1.8-7.7); Neutrophils % 70.4 %; Nucleated Red Blood Cells % 0 %; Platelet Count 244 10^3/cmm (157-399); Red Blood Count 5.02 10^6/uL (3.85-5.65); Red Cell Distribution Width 21.9 % (12.1-15.1); White Blood Count 4.87 10^3/uL (3.29-11.43)
[2025-01-29 11:07] LABS: Alanine Aminotransferase 20 U/L (0-33); Albumin Level 4.2 g/dL (3.5-5.2); Alkaline Phosphatase 78 U/L (35-105); Aspartate Amino Transferase 20 U/L (0-32); Blood Urea Nitrogen 15 mg/dL (6-20); CA 15-3 8.1 U/mL (0-25); Calcium 9.6 mg/dL (8.5-10.5); Carbon Dioxide 23 mmol/L (22-29); Chloride 105 mmol/L (98-107); Globulin 3.6 g/dL (1.3-4.6); Glomerular Filtration Rate 76.2 mL/min (90-130); Glucose 101 mg/dL (65-115); Osmolality Calculated 295 mOsm/kg (285-295); Sodium 142 mmol/L (136-145); Total Bilirubin 0.2 mg/dL (0.15-1.2); Total Protein 7.8 g/dL (6.6-8.7)
--- NOTE | 2025-01-29 11:47 | ONCRAD TMN_ITS ---
Radiation Oncology Weekly Treatment Management Patient: Ara Stephen MR#: [id number] : 1975 Attending Physician: Dr. Tyshawn Villalba Date of Service: 01/29/2025 Referring Physician(s) : Diagnosis: C50.912 - Malignant neoplasm of unspecified site of left female breast, Diagnosed 11/19/2024 (Active) C77.3 - Secondary and unspecified malignant neoplasm of axilla and upper limb lymph nodes, Diagnosed 11/19/2024 (Active) Radiotherapy to date: Course: L chest wall, Treatment Site: LSClav/PAB, Ref. ID: PTV SClav, Energy: 15X/6X, Dose/Fx (cGy): 180, #Fx: 15 / 25, Dose Correction (cGy): 0, Total Dose Delivered (cGy): 2,700, Start Date: 01/08/2025, Elapsed Days: 21 Course: L chest wall, Treatment Site: LCW Bolus, Ref. ID: PTV Chestwall, Energy: 15X/6X, Dose/Fx (cGy): 200, #Fx: 15 / 25, Dose Correction (cGy): 0, Total Dose Delivered (cGy): 3,000, Start Date: 01/08/2025, Elapsed Days: 21 Reason for visit: The patient is being seen today as part of their regularly scheduled weekly on treatment visits to assess for acute toxicities from radiotherapy. Review of Systems: Tired. Cares for three grandchildren ages 6 mo, 2 yrs,and 6 yrs. Eating ok. Using spray aquaphor over left chest wall. Some chest wall tenderness. Vital Signs: Performed on 01/29/2025 10:52 AM BMI - 59.36 kg/m2 (high), Height - 67 in, Weight - 379 lbs, Temperature - 96.5 f, Pulse - 75 /min, Respiration - 18 /min, O2 Sat - 98 %, Pain - 0, Fatigue - 0 and BP - 142/ 98 mm(hg)(high). Physical Exam: mild left chest wall erythema. Imaging: Radiation therapy imaging related to accurate target localization (i.e. KV, MV and CBCT) was reviewed. Appropriate changes, if any, were made to ensure treatment accuracy. Plan: Good tolerance of treatment. Continue as planned. Signed by: Dr. Tyshawn Villalba 01/29/2025 11:45:32 AM
[2025-01-29] MEDS: diphenhydrAMINE 25 mg Capsule PO (14:18)
[2025-01-29] MEDS: acetaminophen 325 mg Tablet 650 MG PO (14:19)
[2025-01-29] MEDS: pertuzumab-trastuzumab-hy-zzxf (60 mg-60mg-2000 units/mL) 10mL 600 MG SUBCUT (14:59)
== END 2025-01-29 23:59 | disposition home or self-care (01) ==
PROVIDERS: Internal Medicine Medical Oncology; Visit Provider Nurse Practitioner Family
DX: Z53.9 Procedure and treatment not carried out, unspecified reason; Z51.12 Encounter for antineoplastic immunotherapy; Z51.0 Encounter for antineoplastic radiation therapy; C50.412 Malignant neoplasm of upper-outer quadrant of left female breast; C77.3 Secondary and unspecified malignant neoplasm of axilla and upper limb lymph nodes; Z79.899 Other long term (current) drug therapy
CPT/HCPCS: 36415; 77336; 77387; 77412; 80053; 85025; 86300; 96401; 96409; J9316; J9999

== ENCOUNTER 2025-02-10 19:13 | Emergency (ER) | payer BC, MEDICAID, SELFPAY ==
[2025-02-10 19:22] VITALS: BP 114/70; PULSE 90; RESP 20; TEMP 37.2; O2SAT 97; BMI 59.3
--- NOTE | 2025-02-10 19:35 | XRR_ITS ---
PROCEDURE INFORMATION: Exam: XR Chest Exam date and time: 02/10/2025 7:57 PM Age: 49 years old Clinical indication: Shortness of breath; Prior surgery; Surgery date: 6+ months; Surgery type: Mastectomy; C/O SOB with painful inspirations. Currently on radiation therapy. ; Additional info: Pain with inspiration TECHNIQUE: Imaging protocol: Radiologic exam of the chest. Views: 2 views. COMPARISON: CT chest w con* [id number] 10/07/2024 8:58 PM FINDINGS: Lungs: Unremarkable. No consolidation. Pleural spaces: Unremarkable. No pleural effusion. No pneumothorax. Heart/Mediastinum: Unremarkable. No cardiomegaly. Bones/joints: Unremarkable. XR/XR chest 2V* [id number] IMPRESSION: No acute findings.
--- NOTE | 2025-02-10 19:46 | ED_ITS ---
HPI - Abdominal Pain 2 General: Chief Complaint: Shortness of Breath/Dyspnea Stated Complaint: R side pain, SOB, light headed R shoulder pain Time Seen by Provider: 02/10/25 19:17 History of Present Illness: 49-year-old female presents with right u pper quadrant pain and some epigastric discomfort. She reports has been going on for about 2 days and is gotten worse. Patient reports it hurts for her to take a deep breath. She does not have her gallbladder. She does have a history of breast cancer on the left and is getting radiation and has a radiation burn on her left upper chest wall. She reports that she last received radiation the day before her abdominal pain started. Associated Symptoms: Denies nausea and vomiting Related Data Previous Rx's ?Medication ?Instructions ?Recorded lorazepam 1 mg tablet 0.5 - 1 mg (0.5 - 1 x 1 mg) PO Q6H 04/02/24 PRN severe nausea #30 tabs diphenoxylate-atropine 2.5 1 tab PO Q6H #30 tabs 08/24 mg-0.025 mg tablet apixaban 5 mg tablet 5 mg PO BID #60 tabs 5 bupropion HCl 300 mg 24 hr tablet, 300 mg PO DAILY #30 tabs 01/07/25 extended release diclofenac sodium 1 % topical gel 2 g topical QID #100 grams 01/07/25 (Voltaren Arthritis Pain) paroxetine HCl 40 mg tablet 40 mg PO DAILY #30 tabs valsartan 40 mg tablet (Diovan) 40 mg PO BID #30 tabs 01/07/25 ferrous gluconate 324 mg (37.5 mg 324 mg PO DAILY #30 tabs 01/29/25 iron) tablet ondansetron 8 mg disintegrating 8 mg PO Q8H PRN nausea and 02/08/25 tablet vomiting #30 tabs sucralfate 1 gram tablet (Carafate) 1 g PO TID #30 tab s 02/10/25 Allergies Allergy/AdvReac Type Severity Reaction Status Date / Time avocado Allergy ALGY-Swell Verified 01/08/25 13:24 Lip/Tongue/Throat Review of Systems 2 Card: Denies: chest pain, palpitations or irregular heart rhythm Resp: Reports: other (Please see HPI) GI: Reports: abdominal pain; Denies: nausea or vomiting Skin/Breast: Reports: other (Please see HPI) PFSH ED 2 PFSH: Medical History OA (osteoarthritis) Essential hypertension Anxiety with depression Breast cancer Surgical History History of staph infection 10/21/23 left chest with wound vac History of evacuation of hematoma Sep 2023 at [facility] History of mastectomy, total 09/27/23 at [facility] Left History of removal of Port-a-Cath 06/29/24 at [facility] Port-A-Cath in place 03/28/24 at [facility] Hx of tubal ligation 1997 Hx of cholecystectomy 2012 Hx of hernia repair 2014 Family History Father Hypertension Diabetes Mother Hypertension Diabetes Social History Smoking and tobacco/nicotine status: former use of tobacco/nicotine Quit status (tobacco/nicotine): has quit using Former quit date comment: Previously smoked 1 pack per week; quit 30 yrs ago. Second hand smoke exposure: No Alcohol intake: current Substance/Drug Use: never Lives independently: Yes Household members: spouse Housing: Manufactured/Mobile home Marital status: Number of children: 3 Highest education level completed: Some College, No Degree Pets and animals: Yes Pets & animals: cat(s), dog(s) and guinea pig(s) Physical Exam 2 Const: COMMON NORMALS: patient oriented x3 and alert Resp: COMMON NORMALS: normal respiratory effort and clear to auscultation bilaterally AUSCULTATION: clear to auscultation bilaterally Cardio: COMMON NORMALS: regular rate and regular rhythm RATE: regular rate RHYTHM: regular rhythm GI: COMMON NORMALS: Soft to palpation PALPATION: Yes Soft to palpation and Yes Tenderness to palpation present (GI) (Epigastric and right upper quadrant) Neuro: COMMON NORMALS: patient oriented x3 SENSORIUM/ORIENTATION: Yes alert Skin: NARRATIVE SKIN EXAM: Radiation burn to the left upper chest wall/upper shoulder Course 2 Vital Signs: Vital signs: Vital Signs Temperature 99.0 F 02/10/25 19:22 Pulse Rate 78 02/10/25 20:30 Respiratory Rate 18 02/10/25 20:30 Blood Pressure 133/87 02/10/25 20:30 Pulse Oximetry 97 02/10/25 20:30 Oxygen Delivery Me thod Room Air 02/10/25 20:30 MDM - Abdominal Pain Medical Decision Making Patient's diagnostic studies were ordered and reviewed. Patient's labs showed no acute findings. She did have significant improvement in her symptoms with the famotidine. Due to patient's history of cancer and recent chemo did obtain a CT abdomen pelvis which shows no acute findings. She was given a GI cocktail and discharged with recommendations for famotidine, Maalox. Also gave her Carafate. 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 She is stable upon discharge and should follow-up with her primary care provider. Lab Data 02/10/25 19:50 02/10/25 19:50 Labs/Radiology: Radiology Impressions Chest X-Ray 02/10/25 19:35 IMPRESSION: No acute findings. Abdomen/Pelvis CT 02/10/25 20:32 IMPRESSION: 1. No acute findings in the right upper quadrant are identified. 2. Hepatosplenomegaly. 3. Colonic diverticulosis. 4. Left ovarian/adnexal 6.5 cm cyst. Laboratory Results WBC 9.58 10^3/uL (3.29-11.43) 02/10/25 19:50 RBC 4.72 10^6/uL (3.85-5.65) 02/10/25 19:50 Hgb 11.60 g/dL (11.27-16.99) 02/10/25 19:50 Hct 36.6 % (36-47) 02/10/25 19:50 MCV 77.5 fl (85-98) L 02/10/25 19:50 MCH 24.6 pg (27-33) L 02/10/25 19:50 MCHC 31.7 g/dL (30-55) 02/10/25 19:50 RDW 22.7 % (12.1-15.1) H 02/10/25 19:50 Plt Count 247 10^3/cmm (157-399) 02/10/25 19:50 MPV 9.7 fL (7.4-10.4) 02/10/25 19:50 Neut % (Auto) 86.0 % 02/10/25 19:50 Lymph % (Auto) 6.4 % 02/10/25 19:50 [place] % (Auto) 5.9 % 02/10/25 19:50 Eos % (Auto) 0.9 % 02/10/25 19:50 Baso % (Auto) 0.4 % 02/10/25 19:50 Neut # (Auto) 8.23 10^3/uL (1.8-7.7) H 02/10/25 19:50 Lymph # (Auto) 0.6 10^3/uL (0.8-4.8) L 02/10/25 19:50 [place] # (Auto) 0.6 10^3/uL (0.2-0.9) 02/10/25 19:50 Eos # (Auto) 0.1 10^3/uL (0.0-0.8) 02/10/25 19:50 Baso # (Auto) 0.0 10^3/uL (0.0-0.1) 02/10/25 19:50 Nucleated RBC % (auto) 0 % 02/10/25 19:50 Nucleated RBCs # 0.0 /100WBC 02/10/25 19:50 Sodium 139 mmol/L (136-145) 02/10/25 19:50 Potassium 3.7 mmol/L (3.5-5.1) 02/10/25 19:50 Chloride 103 mmol/L (98-107) 02/10/25 19:50 Carbon Dioxide 21 mmol/L (22-29) L 02/10/25 19:50 Anion Gap 18.7 (5-19) 02/10/25 19:50 BUN 17 mg/dL (6-20) 02/10/25 19:50 Creatinine 1.0 mg/dL (0.5-0.9) H 02/10/25 19:50 GFR Calculation 58.9 mL/min (90-130) L 02/10/25 19:50 Glucose 113 mg/dL (65-115) 02/10/25 19:50 Calculated Osmolality 290 mOsm/kg (285-295) 02/10/25 19:50 Calcium 9.5 mg/dL (8.5-10.5) 02/10/25 19:50 Total Bilirubin 0.2 mg/dL (0.15-1.2) 02/10/25 19:50 AST 15 U/L (0-32) 02/10/25 19:50 ALT 17 U/L (0-33) 02/10/25 19:50 Alkaline Phosphatase 87 U/L (35-105) 02/10/25 19:50 Troponin T Baseline < 6 ng/L (0-10) 02/10/25 19:50 Total Protein 7.2 g/dL (6.6-8.7) 02/10/25 19:50 Albumin 4.0 g/dL (3.5-5.2) 02/10/25 19:50 Globulin 3.2 g/dL (1.3-4.6) 02/10/25 19:50 Lipase 26 U/L (13-60) 02/10/25 19:50 All radiology interpretation(s) finalized by discharge Discharge Plan Discharge Patient Disposition: Home Clinical Impression: Gastritis and gastroduodenitis Condition: Stable Prescriptions: New sucralfate [Carafate] 1 gram tablet 1 g PO TID Qty: 30 0RF No Action lorazepam 1 mg tablet 0.5 - 1 mg PO Q6H PRN (Reason: severe nausea) Qty: 30 2RF bupropion HCl 300 mg tablet extended release 24 hr 300 mg PO DAILY Qty: 30 5RF paroxetine HCl 40 mg tablet 40 mg PO DAILY Qty: 30 5RF valsartan [Diovan] 40 mg tablet 40 mg PO BID Qty: 30 5RF diclofenac sodium [Voltaren Arthritis Pain] 1 % gel 2 g topical QID Qty: 100 5RF Rx Instructions: apply to single elbow, wrist or hand; for hand includes palm/fingers/back of hand ferrous gluconate 324 mg (37.5 mg iron) tablet 324 mg PO DAILY Qty: 30 1RF diphenoxylate-atropine 2.5-0.025 mg tablet 1 tab PO Q6H Qty: 30 0RF apixaban 5 mg tablet 5 mg PO BID Qty: 60 3RF ondansetron 8 mg tablet,disintegrating 8 mg PO Q8H PRN (Reason: nausea and vomiting) Qty: 30 2RF Rx Instructions: Do not take 2 days after receiving treatment Discharge Orders: Discharge ED (Routine); Ordered 02/10/25 Ordered By: Herve Sanchez Referrals: Janet Breen, [facility] [Primary Care Provider, Family Practice] Discharge Diet: Advance as tolerated Discharge Activity: Increase activity as tolerated Patient Instructions: Gastritis (ED), Opioid Safety, Pain Management Activity Restrictions/Additional Instructions: Please start Pepcid/famotidine twice daily. Also recommend use Maalox for your symptoms. I did prescribe you some Carafate if does not improve over the next couple days that you may start 3 times a day. Follow-up with your primary care provider as needed. Print Language: Kittitian Coding Level of Care Code ED Vehicle Trimmer for Mat Sanon
[2025-02-10 20:00] VITALS: BP 166/87; PULSE 83; RESP 18; O2SAT 97
[2025-02-10 20:10] LABS: Basophils % 0.4 %; Eosinophils # 0.1 10^3/uL (0.0-0.8); Eosinophils % 0.9 %; Hematocrit 36.6 % (36-47); Lymphocytes # 0.6 10^3/uL (0.8-4.8); Lymphocytes % 6.4 %; Mean Corpuscular HGB Conc 31.7 g/dL (30-55); Mean Corpuscular Hemoglobin 24.6 pg (27-33); Mean Corpuscular Volume 77.5 fl (85-98); Mean Platelet Volume 9.7 fL (7.4-10.4); Monocytes # 0.6 10^3/uL (0.2-0.9); Monocytes % 5.9 %; Neutrophils # 8.23 10^3/uL (1.8-7.7); Nucleated Red Blood Cells % 0 %; Platelet Count 247 10^3/cmm (157-399); Red Blood Count 4.72 10^6/uL (3.85-5.65); Red Cell Distribution Width 22.7 % (12.1-15.1); White Blood Count 9.58 10^3/uL (3.29-11.43)
[2025-02-10] MEDS: famotidine 20 mg/2 mL INJ 40 MG IVP (20:15)
--- NOTE | 2025-02-10 20:22 | ECG_ITS ---
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 Measurements Intervals [place] Rate: 80 P: 44 IN: 165 QRS: 33 QRSD: 104 T: 75 QT: 371 QTc: 430 Interpretive Statements SINUS RHYTHM NONSPECIFIC T-WAVE ABNORMALITY Compared to ECG 10/07/2024 20:24:17 T-wave abnormality now present Sinus tachycardia no longer present Ventricular premature complex(es) no longer present ST (T wave) deviation no longer present Electronically Signed On 02-12-2025 17:29:26 CDT by Tobias Gerber M.D. [email or web address]
[2025-02-10 20:23] LABS: Troponin(5th) Baseline < 6 ng/L (0-10)
[2025-02-10 20:30] VITALS: BP 133/87; PULSE 78; RESP 18; O2SAT 97
--- NOTE | 2025-02-10 20:32 | CTR_ITS ---
PROCEDURE INFORMATION: Exam: CT Abdomen And Pelvis With Contrast Exam date and time: 02/10/2025 9:03 PM Age: 49 years old Clinical indication: Abdominal pain; Localized; Right upper quadrant (ruq); Prior surgery; Surgery date: 6+ months; Surgery type: Mastectomy. Gb. Hernia repair. Tubal. C/O ruq pain. History of breast cancer. TECHNIQUE: Imaging protocol: Computed tomography of the abdomen and pelvis with contrast. Radiation optimization: All CT scans at this facility use at least one of these dose optimization techniques: automated exposure control; mA and/or kV adjustment per patient size (includes targeted exams where dose is matched to clinical indication); or iterative reconstruction. Contrast material: OMNI 350; Contrast volume: 100 ml; Contrast route: INTRAVENOUS (IV); COMPARISON: CT abdomen pelvis w con* [id number] 03/27/2024 4:07 PM RADIATION DOSE METRICS: Total DLP (mGy-cm): 1369.27 FINDINGS: Liver: Liver is enlarged measuring 25 cm on coronal imaging with no discrete liver lesions observed. Gallbladder and biliary ducts: Prior cholecystectomy. Pancreas: No evidence of pancreatitis. No ductal dilation. Spleen: Spleen is enlarged. Adrenal glands: Adrenal glands are within expected limits. Kidneys and ureters: No renal or ureteral calculi are identified. No hydronephrosis. Stomach and bowel: Colonic diverticulosis without diverticulitis. Small bowel is normal caliber with no obstruction. No acute gastric abnormality is evident. Appendix: No evidence of appendicitis. Intraperitoneal space: No free air. No significant fluid collection. Vasculature: No abdominal aortic aneurysm. Lymph nodes: No pathologically enlarged lymph nodes by CT size criteria. Urinary bladder: Unremarkable as visualized. Reproductive: Slightly heterogeneous enhancement of the uterus. Large left ovarian/adnexal cyst measuring 6.5 cm. Bones/joints: No acute osseous abnormalities. Soft tissues: Unremarkable. CT/CT abdomen pelvis w con* [id number] IMPRESSION: 1. No acute findings in the right upper quadrant are identified. 2. Hepatosplenomegaly. 3. Colonic diverticulosis. 4. Left ovarian/adnexal 6.5 cm cyst.
[2025-02-10 20:34] LABS: Alanine Aminotransferase 17 U/L (0-33); Alkaline Phosphatase 87 U/L (35-105); Anion Gap 18.7 (5-19); Aspartate Amino Transferase 15 U/L (0-32); Blood Urea Nitrogen 17 mg/dL (6-20); Calcium 9.5 mg/dL (8.5-10.5); Carbon Dioxide 21 mmol/L (22-29); Chloride 103 mmol/L (98-107); Creatinine Clr Calc Pharmacy 113.5807; Globulin 3.2 g/dL (1.3-4.6); Glomerular Filtration Rate 58.9 mL/min (90-130); Glucose 113 mg/dL (65-115); Lipase 26 U/L (13-60); Osmolality Calculated 290 mOsm/kg (285-295); Potassium 3.7 mmol/L (3.5-5.1); Sodium 139 mmol/L (136-145); Total Bilirubin 0.2 mg/dL (0.15-1.2); Total Protein 7.2 g/dL (6.6-8.7)
[2025-02-10] MEDS: iohexol 350 mg/mL 500 mL Btl (per mL) IV (21:05)
[2025-02-10] MEDS: lidocaine 2% viscous 15 ML, aluminum-mag hydrox-simethicon 30 ML, sucralfate oral liq 1 GM PO (21:59)
[2025-02-10 22:12] VITALS: BP 138/95; PULSE 83; RESP 16; O2SAT 96
[2025-02-10 22:16] LABS: Troponin 5 2HR < 6.0 ng/L (0-10); Troponin 5 2HR Delta 0 ABS# (0-10)
== END 2025-02-10 22:05 | disposition home or self-care (01) ==
PROVIDERS: Emergency Provider Student in an Organized Health Care Education/Training Program; PCP Nurse Practitioner
DX: K29.70 Gastritis, unspecified, without bleeding (principal); K29.90 Gastroduodenitis, unspecified, without bleeding; Z87.891 Personal history of nicotine dependence; I10 Essential (primary) hypertension; Z85.3 Personal history of malignant neoplasm of breast
CPT/HCPCS: 36415; 71046; 74177; 80053; 83690; 84484; 85025; 93005; 96374; 99285; J3490; J9999

== ENCOUNTER 2025-02-13 07:39 | Oncology outpatient (recurring) (ONCR) | payer BC, MEDICAID, SELFPAY ==
--- NOTE | 2025-02-07 09:27 | MM_ITS ---
WS: [id number] RIGHT 3D TOMOSYNTHESIS DIGITAL MAMMOGRAPHY WITH CAD CLINICAL INFORMATION: R BREAST PAIN/MASS HISTORY: RIGHT breast lump COMPARISON: 2013 and outside report 09/17/2024 TECHNIQUE: 3 views of the right breast were obtained. FINDINGS: The right breast is composed of heterogeneous fibroglandular density tissue, which can limit the detection of small underlying mass lesions. No definite mammographic abnormalities in the areas of concern RIGHT breast. Ultrasound is pending. ULTRASOUND BREAST RIGHT TECHNIQUE: Ultrasound right breast focused area of concern. CLINICAL INFORMATION: R BREAST PAIN/MASS FINDINGS: Ultrasound RIGHT breast in the areas of concern. Dense underlying parenchymal tissue. No suspicious cystic or solid lesions. Recommend return to annual diagnostic mammography. MM/MM diag RT tomosynthesis [id number] IMPRESSION: DENSITY: The breasts are heterogeneously dense, which may obscure small masses. BI-RADS: 1 - Negative FOLLOW UP: 1 Year Follow-up Recommend return to annual diagnostic mammography.
--- NOTE | 2025-02-12 09:47 | ONCRAD TMN_ITS ---
Radiation Oncology Weekly Treatment Management Patient: Ara Stephen MR#: [id number] : 1975 Attending Physician: Kb Sherman Date of Service: 02/12/2025 Referring Physician(s) : Diagnosis: C50.912 - Malignant neoplasm of unspecified site of left female breast, Diagnosed 11/19/2024 (Active) C77.3 - Secondary and unspecified malignant neoplasm of axilla and upper limb lymph nodes, Diagnosed 11/19/2024 (Active) Radiotherapy to date: Course: L chest wall, Treatment Site: LSClav/PAB, Ref. ID: PTV SClav, Energy: 15X/6X, Dose/Fx (cGy): 180, #Fx: 25, Dose Correction (cGy): 0, Total Dose Delivered (cGy): 3,960, Start Date: 01/08/2025, , Elapsed Days: 35 Course: L chest wall, Treatment Site: LCW Bolus, Ref. ID: PTV Chestwall, Energy: 15X/6X, Dose/Fx (cGy): 200, #Fx: , Dose Correction (cGy): 0, Total Dose Delivered (cGy): 4,400, Start Date: 01/08/2025, Elapsed Days: 35 Reason for visit: The patient is being seen today as part of their regularly scheduled weekly on treatment visits to assess for acute toxicities from radiotherapy. Review of Systems: Complains of pain and skin breakdown on the chest wall. Silvadene ordered yesterday and pharmacies getting it in today for the patient. Patient will apply liberally. Vital Signs: Performed on 02/12/2025 9:35 AM BMI - 59.611 kg/m2 (high), Height - 67 in, Weight - 380.6 lbs, Temperature - 96.6 f, Pulse - 71 /min, Respiration - 18 /min, O2 Sat - 97 %, Pain - 5, Fatigue - 0 and BP - 138/ 93 mm(hg)(/high). Physical Exam: AAOx3. Skin notes moist desquamation in the scar lines. Mild erythema otherwise. Imaging: Radiation therapy imaging related to accurate target localization (i.e. KV, MV and CBCT) was reviewed. Appropriate changes, if any, were made to ensure treatment accuracy. Plan: Apply Silvadene liberally 4 times daily. Continue XRT without bolus. Signed by: Kb Sherman 02/12/2025 9:46:11 AM
[2025-02-13] MEDS: sodium chloride 0.9% 1,000 ML 999 ML IV (08:57)
[2025-02-13] MEDS: morphine 4 mg/mL SDV 1 mL 1 MG IVP (08:58)
[2025-02-13 10:59] VITALS: RESP 18
[2025-02-13] MEDS: morphine 4 mg/mL SDV 1 mL 1 MG IM (10:59)
[2025-02-13 11:00] VITALS: BP 124/78; PULSE 78; RESP 18; TEMP 36.6; O2SAT 98
--- NOTE | 2025-02-13 13:20 | N.ONRD TS_ITS ---
Radiation Oncology Treatment Summary Patient: Ara Stephen MR#: [id number] : 1975 Age: 49 Sex: Female Dictated by: Kb Sherman Date of Service: 02/13/2025 Referring Physician(s) : Diagnosis: C50.912 - Malignant neoplasm of unspecified site of left female breast, Diagnosed 11/19/2024 (Active) C77.3 - Secondary and unspecified malignant neoplasm of axilla and upper limb lymph nodes, Diagnosed 11/19/2024 (Active) Radiotherapy to Date: Course: L chest wall, Treatment Site: LSClav/PAB, Ref. ID: PTV SClav, Energy: 15X/6X, Dose/Fx (cGy): 180, #Fx: , Dose Correction (cGy): 0, Total Dose Delivered (cGy): 3,960, Start Date: 01/08/2025, End Date: 02/12/2025, Elapsed Days: 35, Course: L chest wall, Treatment Site: LCW Bolus, Ref. ID: PTV Chestwall, Energy: 15X/6X, Dose/Fx (cGy): 200, #Fx: , Dose Correction (cGy): 0, Total Dose Delivered (cGy): 4,400, Start Date: 01/08/2025, End Date: 02/12/2025, Elapsed Days: 35 Clinical Summary: Patient had moderate moist desquamation with accompanying mild erythema of the skin itself. The moist desquamation included the scar lines. Patient was prescribed Silvadene which she stated she was going to obtain yesterday. Patient went to the ER the weekend prior to quitting treatment with abdominal and gastric pain. Her soto did include the anterior portion of the stomach. Body habitus would accentuate the GI issues. Patient wished to do no further treatments after 22 fractions. She received IV fluids today. Plan: End of treatment today. Continue on the above medication until the skin reaction resolves. Follow up in two weeks. Signed by: Kb Sherman>02/13/2025 1:19:17 PM <<Signature on File>>
== END 2025-02-18 23:59 | disposition home or self-care (01) ==
PROVIDERS: Visit Provider Nurse Practitioner Family
DX: Z53.9 Procedure and treatment not carried out, unspecified reason; C50.412 Malignant neoplasm of upper-outer quadrant of left female breast; R16.2 Hepatomegaly with splenomegaly, not elsewhere classified; R10.11 Right upper quadrant pain; Z79.899 Other long term (current) drug therapy
CPT/HCPCS: 36415; 76642; 77061; 77336; 77387; 77412; 96360; 96375; 96402; G0279; J2270; J7030

== ENCOUNTER 2025-03-10 22:13 | Emergency (ER) | payer BC, MEDICAID, SELFPAY ==
[2025-03-10 22:18] VITALS: BP 147/93; PULSE 101; RESP 18; TEMP 37.4; O2SAT 94; BMI 57.9
--- OUTSIDE RECORDS SUMMARY | 2025-03-10 22:23 | XMS_ITS | Patient Health Record ---
Author Organization [facility] Address [address] [place] [address] Care Team Providers Care Clinical Project Leader Name Role Phone Jennifer Duong Primary Care Provider Allergies No Known Allergies Reason For Referral No Information Medications Medication SIG (Take, Route, Frequency, Duration) Notes Start Date End Date Status amLODIPine Besylate 5 MG Tablet 0.5 tab Orally Once a day Active buPROPion HCl ER (XL) 300 mg Tablet Extended Release 24 Hour TAKE ONE TABLET BY MOUTH ONCE DAILY IN THE MORNING; Duration: 30 days Active PARoxetine HCl 40 MG Tablet TAKE ONE TAB LET BY MOUTH EVERY MORNING ONCE DAILY; Duration: 30 days Active ALPRAZolam 0.25 MG Tablet 1/2 to 1 table t as needed Orally Once a day; Duration: 30 days 01/05/2024 Active Lomotil 2.5-0.025 MG Tablet 1 tablet as needed Orally Four times a day Active LORazepam 1 MG Tablet 0.5-1 tab Orally a s needed Active Prochlorperazine Maleate 10 MG Tablet 1 tablet as needed Orally Three times a day Active Eliquis DVT/PE Starter Pack 5 MG Tablet Therapy Pack as directed Orally Active Ondansetron 4 MG Tablet Disintegrating 1 tablet on the tongue and allow to dissolve Orally Once a day Active Immunizations Vaccine Route Administration Date Status Comme nts Flucelvax Trivalent, Syringe 0.5 mL, PF Unknown 024 Refused Social History Tobacco Use: Social History Observation Description Date Details (start date - stop date) Never Smoker NA - NA Social History Depression Screening Social Info Question Answer Notes PHQ-9 Little interest or pleasure in doing thin gs Not at all Feeling down, depressed, or hopeless Not at all Trouble falling or staying asleep, or sleeping t oo much Not at all Feeling tired or having little energy Not at all Poor appetite or overeating Not at all Feeling bad about yourself, or that you are a failure, or have let yourself or your family down Not at all Trouble concentrating on thi ngs, such as reading the newspaper or watching television Not at all Moving or speaking so slowly that other people could have noticed. Or the opposite ? being so fidgety or restless that you have been moving around a lot more than usual Not at all Thoughts that you would be b martir off , or of hurting yourself in some way Not at all Total Score 0 Drugs/Alcohol: Social Info Question Answer Notes Alcohol Screen (Audit-C) Did you have a drink containing alcohol in the past year? No Points 0 Interpretation Negative Tobacco Use: Social Info Question Answer Notes xTobacco Use/Smoking Are you a nonsmoker Section Notes: 06/09/21 06/09/21 08-25-22 PHQ9 06/09/21 08-25-22 PHQ9 06/09/21 08-25-22 PHQ9 Problems Problem Type SNOMED Code ICD Code Onset Dates Problem Status W/U Status Risk Notes Problem Menopause (076136034) Menopausal and female climacteric states (N95.1) Active confirmed Problem Essential hypertension (31870168) Essential hypertension (I10) Active confirmed Problem Arthritis (6022965) Arthritis (M19.90) Active confirmed Problem Mixed anxiety and depressive disorder (031347465) Depression with anxiety (F41.8) Active confirmed Problem Malignant neoplasm of female breast (311488856) Ductal carcinoma of breast, 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) Active confirmed Problem Morbid obesity (034624444) Morbid obesity (E66.01) Active confirmed Vital Signs Heart Rate 82 /min 07/04/2024 Temperature 97.8 degrees Fahrenheit 07/04/2024 Respiratory Rate 20 /min 07/04/2024 Height-cm 175.26 cm 07/04/2024 Oximetry 99 % 07/04/2024 Blood pressure diastolic 78 mm Hg 07/04/2024 Weight-kg 185.07 kg 07/04/2024 Height 69 in 07/04/2024 Blood pressure systolic 130 mm Hg 07/04/2024 Weight 408 lbs 07/04/2024 BMI 60.24 kg/m2 07/04/2024 Encounters Encounter Location Date Provider Diagnosis [facility] [address] [id number] 07/04/2024 Jennifer Duong Thrombosis of internal jugular vein, unspecified laterality I82.C19 ; Ductal carcinoma of breast, unspecified laterality C50.919 ; Encounter for immunization Z23 and Immunization not carried out because of patient refusal Z28.21 Assessments Encounter Date Diagnosis (ICD Code) Assessment Notes Treatment Notes Treatment Clinical Notes Section Notes 07/04/2024 Thrombosis of internal jugular vein, unspecified laterality (ICD-10 - I82.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 07/04/2024 Ductal carcinoma of breast, unspecified laterality (ICD-10 - C50.919) Keep all apts with specialist as scheduled. 07/04/2024 Encounter for immunization (ICD-10 - Z23) 07/04/2024 Immunization not carried out because of patient refusal (ICD-10 - Z28.21) Plan Of Treatment No Information Medications Administered Medication Instructions Date of Administration Dosage Notes zzDexamethasone 03/25/2020 8 mg Medical (General) History Medical History History ICD Code anxiety joint pain Surgical History Surgery Date(Month/Year) hernia repair tubal ligation cholecystectomy Hospitalization History Reason Date(Month/Year) [facility] DVT 06/2024
--- NOTE | 2025-03-10 22:42 | XRR_ITS ---
PROCEDURE INFORMATION: Exam: XR Chest Exam date and time: 03/10/2025 10:50 PM Age: 49 years old Clinical indication: Fever and other: General weakness; Prior surgery; Surgery date: 1-6 months; Surgery type: Left mastectomy sep 2024; Fever with general weakness TECHNIQUE: Imaging protocol: Radiologic exam of the chest. Views: 1 view. COMPARISON: CR (CHEST, ) 02/10/2025 7:57 PM FINDINGS: Lungs: Unremarkable. No consolidation. Pleural spaces: Unremarkable. No pleural effusion. No pneumothorax. Heart/Mediastinum: Unremarkable. No cardiomegaly. Bones/joints: Unremarkable. XR/XR chest 1V portable [id number] IMPRESSION: No acute findings.
--- NOTE | 2025-03-10 22:48 | ED_ITS ---
HPI - Weakness 2 General: Chief complaint: Weakness Stated complaint: Cancer Pt\Chills Time Seen by Provider: 03/10/25 22:32 History of Present Illness: Patient is a 49-year-old female presents to ED due to weakness. Patient has history of breast cancer, last chemo in July, last radiation 1 month ago, with radiation marcum to her left breast. She admits to issues on and Tuesday with increasing wetness, and today could not walk short distances. She denied any fever, chills. She does not have a port due to previous DVT and port. She denies any dysuria. Associated symptoms: Denies chest pain, chills, easy bruising, fever(s), headache(s), nausea or vomiting Related Data Previous Rx's ?Medication ?Instructions ?Recorded lorazepam 1 mg tablet 0.5 - 1 mg (0.5 - 1 x 1 mg) PO Q6H 04/02/24 PRN severe nausea #30 tabs diphenoxylate-atropine 2.5 1 tab PO Q6H #30 tabs 08/24 mg-0.025 mg tablet apixaban 5 mg tablet 5 mg PO BID #60 tabs 5 bupropion HCl 300 mg 24 hr tablet, 300 mg PO DAILY #30 tabs 01/07/25 extended release diclofenac sodium 1 % topical gel 2 g topical QID #100 grams 01/07/25 (Voltaren Arthritis Pain) paroxetine HCl 40 mg tablet 40 mg PO DAILY #30 tabs valsartan 40 mg tablet (Diovan) 40 mg PO BID #30 tabs 01/07/25 ferrous gluconate 324 mg (37.5 mg 324 mg PO DAILY #30 tabs 01/29/25 iron) tablet ondansetron 8 mg disintegrating 8 mg PO Q8H PRN nausea and 02/08/25 tablet vomiting #30 tabs sucralfate 1 gram tablet (Carafate) 1 g PO TID #30 tab s 02/10/25 tramadol 50 mg tablet 50 mg PO TID PRN pain #60 ta bs 02/12/25 metronidazole 500 mg tablet 500 mg PO BID 3 days #6 ta bs 02/19/25 lidocaine viscous 2% See Rx Instructions .Route 0 02/26/25 .COMPLEX 4 weeks #300 mL tramadol 50 mg tablet 50 mg PO Q4H PRN pain #180 t abs 02/26/25 silver sulfadiazine 1 % topical 1 applic topical BID P bunch breaker 02/27/25 cream (Silvadene) healing #400 grams lidocaine-prilocaine 2.5 %-2.5 % 1 applic topical QID PRN pain, 02/28/25 topical cream moderate 2 weeks #30 grams Allergies Allergy/AdvReac Type Severity Reaction Status Date / Time avocado Allergy ALGY-Swell Verified 02/19/25 10:22 Lip/Tongue/Throat Review of Systems 2 General: Reports: 10 or more systems reviewed and unremarkable except in HPI and below Const: Reports: fatigue and malaise; Denies: fever(s), chills or change in appetite Eyes: Denies: change in vision or blurry vision ENMT: Denies: throat pain Card: Denies: chest pain or palpitations Resp: Denies: dyspnea or productive cough GI: Denies: abdominal pain, nausea or vomiting : Denies: flank pain or difficulty voiding Musc: Denies: neck pain, back pain or extremity pain Neuro: Denies: headache(s), numbness in extremities or weakness in extremities Psych: Denies: anxiety or depression Endo: Denies: polyuria or polydipsia Howard/Lymph: Denies: easy bruising or easy bleeding All/Imm: Denies: urticaria or throat swelling PFSH ED 2 PFSH: Medical History OA (osteoarthritis) Essential hypertension Anxiety with depression Breast cancer Surgical History History of staph infection 10/21/23 left chest with wound vac History of evacuation of hematoma Sep 2023 at [facility] History of mastectomy, total 09/27/23 at [facility] Left History of removal of Port-a-Cath 06/29/24 at [facility] Port-A-Cath in place 03/28/24 at [facility] Hx of tubal ligation 1997 Hx of cholecystectomy 2012 Hx of hernia repair 2014 Family History Father Hypertension Diabetes Mother Hypertension Diabetes Social History (Reviewed 02/19/25 @ 10:21 by ALEXIA Bautista Smoking and tobacco/nicotine status: former use of tobacco/nicotine Quit status (tobacco/nicotine): has quit using Former quit date comment: Previously smoked 1 pack per week; quit 30 yrs ago. Second hand smoke exposure: No Alcohol intake: current Substance/Drug Use: never Lives independently: Yes Household members: spouse Housing: Manufactured/Mobile home Marital status: Number of children: 3 Highest education level completed: Some College, No Degree Pets and animals: Yes Pets & animals: cat(s), dog(s) and guinea pig(s) Physical Exam 2 Const: COMMON NORMALS: no acute distress, average body habitus and patient oriented x3 GENERAL APPEARANCE: cooperative HENMT: COMMON NORMALS: normocephalic and atraumatic HEAD & SCALP: n ormocephalic and atraumatic Eye: COMMON NORMALS: Equal, round and reactive pupils present, EOMs intact bilaterally and conjunctivae normal CONJUNCTIVA: Yes conjunctivae normal P UPIL: Yes Equal, round and reactive pupils present Neck/C-Spine: COMMON NORMALS: full ROM and no lymphadenopathy GENERAL: Yes normal visual inspection Lymph: LYMPHATIC: no lymphadenopathy noted Chest: COMMONS NORMALS: normal inspection of the chest and normal palpation of entire chest wall Resp: COMMON NORMALS: normal respiratory effort and No retractions Cardio: COMMON NORMALS: regular rate and regular rhythm RATE: regular rate RHYTHM: regular rhythm GI: COMMON NORMALS: Normal to inspection, nondistended, normoactive bowel sounds present, Soft to palpation and non-tender PALPATION: Yes Soft to palpation : COMMON NORMALS: Yes no CVA tenderness BLADDER/KIDNEY EXAM: Yes no CVA tenderness Back/Pelvis: COMMON NORMALS: no CVA tenderness Extremity: COMMON NORMALS: normal to inspection, full ROM and capillary refill normal Neuro: COMMON NORMALS: patient oriented x3, CN's II-XII intact bilaterally and moves all extremities Psych: COMMON NORMALS: mental status grossly normal and Normal thought process present THOUGHT PROCESS: Normal thought process present Skin: SKIN IMAGES (FEMALE): 1. radiation rash Course 2 Vital Signs: Vital signs: Vital Signs Temperature 99.4 F 03/10/25 22:18 Pulse Rate 87 03/11/25 00:44 Respiratory Rate 18 03/11/25 00:44 Blood Pressure 110/58 03/11/25 00:44 Pulse Oximetry 97 03/11/25 00:44 Oxygen Delivery Me thod Room Air 03/11/25 00:44 MDM - Weakness Medical Decision Making Patient is a 49-year-old female with breast cancer, status post mastectomy of left breast, chemotherapy, and radiation. She comes in with 1 day of weakness. Workup is essentially benign, other than mild hypokalemia/dehydration noted with protein in labs, elevated specific gravity. There has been a heat advisory, and suspect this is another factor. Patient was given 1 L, which appeared to improve her other leg symptoms. Her radiation rash to her left chest, patient assures us is improved. She will follow-up with her primary care regarding her radiation rash, and any additional concerns of weakness as well as return to ED for further issues. Medical Records I reviewed the patient's medical records. Lab Data I reviewed the patient's lab results. 03/10/25 22:49 03/10/25 22:49 Radiology Impressions Chest X-Ray 03/10/25 22:42 IMPRESSION: No acute findings. Laboratory Results WBC 4.68 10^3/uL (3.29-11.43) 03/10/25 22:49 RBC 4.93 10^6/uL (3.85-5.65) 03/10/25 22:49 Hgb 12.30 g/dL (11.27-16.99) 03/10/25 22:49 Hct 38.6 % (36-47) 03/10/25 22:49 MCV 78.3 fl (85-98) L 03/10/25 22:49 MCH 24.9 pg (27-33) L 03/10/25 22:49 MCHC 31.9 g/dL (30-55) 03/10/25 22:49 RDW 23.6 % (12.1-15.1) H 03/10/25 22:49 Plt Count 143 10^3/cmm (157-399) L 03/10/25 22:49 MPV 9.7 fL (7.4-10.4) 03/10/25 22:49 Neut % (Auto) 46.3 % 03/10/25 22:49 Lymph % (Auto) 44.0 % 03/10/25 22:49 [place] % (Auto) 8.3 % 03/10/25 22:49 Eos % (Auto) 0.4 % 03/10/25 22:49 Baso % (Auto) 0.4 % 03/10/25 22:49 Neut # (Auto) 2.16 10^3/uL (1.8-7.7) 03/10/25 22:49 Lymph # (Auto) 2.1 10^3/uL (0.8-4.8) 03/10/25 22:49 [place] # (Auto) 0.4 10^3/uL (0.2-0.9) 03/10/25 22:49 Eos # (Auto) 0.0 10^3/uL (0.0-0.8) 03/10/25 22:49 Baso # (Auto) 0.0 10^3/uL (0.0-0.1) 03/10/25 22:49 Nucleated RBC % (auto) 0 % 03/10/25:49 Nucleated RBCs # 0.0 /100WBC 03/10/25 22:49 Sodium 135 mmol/L (136-145) L 03/10/25 22:49 Potassium 3.4 mmol/L (3.5-5.1) L 03/10/25 22:49 Chloride 99 mmol/L (98-107) 03/10/25 22:49 Carbon Dioxide 23 mmol/L (22-29) 03/10/25 22:49 Anion Gap 16.4 (5-19) 03/10/25 22:49 BUN 7 mg/dL (6-20) 03/10/25 22:49 Creatinine 1.0 mg/dL (0.5-0.9) H 03/10/25 22:49 GFR Calculation 58.9 mL/min (90-130) L 03/10/25 22:49 Glucose 129 mg/dL (65-115) H 03/10/25 22:49 Calculated Osmolality 280 mOsm/kg (285-295) L 03/10/25 22:49 Lactic Acid 1.4 mmol/L (0.5-2.2) 03/10/25 22:49 Calcium 9.1 mg/dL (8.5-10.5) 03/10/25 22:49 Total Bilirubin 0.4 mg/dL (0.15-1.2) 03/10/25 22:49 AST 48 U/L (0-32) H 03/10/25 22:49 ALT 40 U/L (0-33) H 03/10/25 22:49 Alkaline Phosphatase 68 U/L (35-105) 03/10/25 22:49 Ammonia 29 umol/L (11-51) 03/10/25 22:49 Total Protein 7.1 g/dL (6.6-8.7) 03/10/25 22:49 Albumin 3.3 g/dL (3.5-5.2) L 03/10/25 22:49 Globulin 3.8 g/dL (1.3-4.6) 03/10/25 22:49 HCG, Qual Negative (Negative) 03/11/25 00:35 Urine Color Dark yellow (Yellow) A 03/11/25 00:35 Urine Appearance Clear (CLEAR) 03/11/25 00:35 Urine pH 6.0 (5-7) 03/11/25 00:35 Ur Specific [place] 1.022 (1.005-1.030) 03/11/25 00:35 Urine Protein 1+ (Negative) A 03/11/25 00:35 Urine Glucose (UA) Negative (Normal) 03/11/25 00:35 Urine Ketones Trace (Negative) 03/11/25 00:35 Urine Blood Negative (Negative) 03/11/25 00:35 Urine Nitrate Negative (Negative) 03/11/25 00:35 Urine Bilirubin 1+ (Negative) H 03/11/25 00:35 Urine Urobilinogen 1.0 mg/dL (Negative) 03/11/25 00:35 Ur Leukocyte Esterase 1+ (Negative) A 03/11/25 00:35 Urine RBC 0-2 /hpf (0-2) 03/11/25 00:35 Urine WBC 6-10 /hpf (0-5) 03/11/25 00:35 Ur Squamous Epith Cells 6-10 /hpf (0-5) 03/11/25 00:35 Amorphous Sediment Not Reportable 03/11/25 00:35 Urine Bacteria None seen /hpf (NONE) 03/11/25 00:35 Hyaline Casts 4.11 /lpf 03/11/25 00:35 All radiology interpretation(s) finalized by discharge Discharge Plan Discharge Patient Disposition: Home Condition: Stable Prescriptions: No Action lorazepam 1 mg tablet 0.5 - 1 mg PO Q6H PRN (Reason: severe nausea) Qty: 30 2RF bupropion HCl 300 mg tablet extended release 24 hr 300 mg PO DAILY Qty: 30 5RF paroxetine HCl 40 mg tablet 40 mg PO DAILY Qty: 30 5RF valsartan [Diovan] 40 mg tablet 40 mg PO BID Qty: 30 5RF diclofenac sodium [Voltaren Arthritis Pain] 1 % gel 2 g topical QID Qty: 100 5RF Rx Instructions: apply to single elbow, wrist or hand; for hand includes palm/fingers/back of hand ferrous gluconate 324 mg (37.5 mg iron) tablet 324 mg PO DAILY Qty: 30 1RF metronidazole 500 mg tablet 500 mg PO BID 3 Days Qty: 6 0RF diphenoxylate-atropine 2.5-0.025 mg tablet 1 tab PO Q6H Qty: 30 0RF apixaban 5 mg tablet 5 mg PO BID Qty: 60 3RF ondansetron 8 mg tablet,disintegrating 8 mg PO Q8H PRN (Reason: nausea and vomiting) Qty: 30 2RF Rx Instructions: Do not take 2 days after receiving treatment tramadol 50 mg tablet 50 mg PO TID PRN (Reason: pain) Qty: 60 0RF lidocaine viscous 2% See Rx Instructions .ROUTE .COMPLEX 28 Days Qty: 300 0RF Rx Instructions: apply to affected skin 2 to 4 x a day; tramadol 50 mg tablet 50 mg PO Q4H PRN (Reason: pain) Qty: 180 0RF silver sulfadiazine [Silvadene] 1 % cream 1 applic topical BID PRN (Reason: wound healing) Qty: 400 2RF Rx Instructions: apply a 1.5 mm thickness lidocaine-prilocaine 2.5-2.5 % cream 1 applic topical QID PRN (Reason: pain, moderate) 14 Days Qty: 30 0RF sucralfate [Carafate] 1 gram tablet 1 g PO TID Qty: 30 0RF Discharge Orders: Discharge ED (Routine); Ordered 03/11/25 Ordered By: Urszula Foster Referrals: Janet Breen, [employer] [Primary Care Provider, Family Practice] Discharge Diet: Usual diet Discharge Activity: Resume usual activity Patient Instructions: Patient Portal & Taiwo Instructions Activity Restrictions/Additional Instructions: Laboratory data is consistent with dehydration. I suspect this is the underlying weakness issue. Increase fluid noncaffeinated beverages to 3 L/per day. During heat advisory, continue taking 3 L of noncaffeinated beverage daily. Call tomorrow to follow- up with your regular doctor regarding both your radiation rash, and today's visit/hypovolemia. Return to ED for worsening weakness, fever greater than 100.4 ?F, or shortness of breath. Print Language: Bengali Coding Level of Care Code ED Hospital Plan Administrator for Mat Sanon
[2025-03-10 23:03] LABS: Hematocrit 38.6 % (36-47); Hemoglobin 12.30 g/dL (11.27-16.99); Mean Corpuscular HGB Conc 31.9 g/dL (30-55); Mean Corpuscular Hemoglobin 24.9 pg (27-33); Mean Corpuscular Volume 78.3 fl (85-98); Nucleated Red Blood Cells % 0 %; Platelet Count 143 10^3/cmm (157-399); Red Blood Count 4.93 10^6/uL (3.85-5.65); White Blood Count 4.68 10^3/uL (3.29-11.43)
[2025-03-10 23:18] LABS: Lactic Sepsis W/Reflex 1.4 mmol/L (0.5-2.2)
[2025-03-10 23:19] LABS: Alanine Aminotransferase 40 U/L (0-33); Albumin Level 3.3 g/dL (3.5-5.2); Alkaline Phosphatase 68 U/L (35-105); Anion Gap 16.4 (5-19); Aspartate Amino Transferase 48 U/L (0-32); Blood Urea Nitrogen 7 mg/dL (6-20); Calcium 9.1 mg/dL (8.5-10.5); Carbon Dioxide 23 mmol/L (22-29); Chloride 99 mmol/L (98-107); Creatinine Clr Calc Pharmacy 111.8262; Globulin 3.8 g/dL (1.3-4.6); Glucose 129 mg/dL (65-115); Osmolality Calculated 280 mOsm/kg (285-295); Potassium 3.4 mmol/L (3.5-5.1); Sodium 135 mmol/L (136-145); Total Protein 7.1 g/dL (6.6-8.7)
[2025-03-10 23:20] LABS: Ammonia 29 umol/L (11-51)
[2025-03-11 00:40] LABS: Glucose Urine UA Negative (Normal); Nitrate Urine Negative (Negative); Specific Gravity, Urine 1.022 (1.005-1.030)
[2025-03-11 00:43] LABS: HCG Qualitative Urine. Negative (Negative)
[2025-03-11 00:44] VITALS: BP 110/58; PULSE 87; RESP 18; O2SAT 97
[2025-03-11 00:45] LABS: Add Urine Microscopic? YES
[2025-03-11 02:26] VITALS: BP 115/62; PULSE 86; RESP 16; O2SAT 92
== END 2025-03-11 02:32 | disposition home or self-care (01) ==
PROVIDERS: Emergency Provider Physician Assistant; PCP Nurse Practitioner
DX: R53.1 Weakness (principal); I10 Essential (primary) hypertension; E87.6 Hypokalemia; L59.8 Other specified disorders of the skin and subcutaneous tissue related to radiation; Z85.3 Personal history of malignant neoplasm of breast; Z79.899 Other long term (current) drug therapy; Z87.891 Personal history of nicotine dependence
CPT/HCPCS: 36415; 71045; 80053; 81001; 81025; 82140; 83605; 85025; 87040; 96360; 96361; 99284; J7030

== ENCOUNTER 2025-03-12 09:50 | Oncology outpatient (recurring) (ONCR) | payer BC, MEDICAID, SELFPAY ==
[2025-02-19 10:18] LABS: Hematocrit 38.9 % (36-47); Hemoglobin 12.00 g/dL (11.27-16.99); Mean Corpuscular HGB Conc 30.8 g/dL (30-55); Mean Corpuscular Hemoglobin 24.7 pg (27-33); Mean Corpuscular Volume 80.2 fl (85-98); Nucleated Red Blood Cells % 0 %; Platelet Count 226 10^3/cmm (157-399); Red Blood Count 4.85 10^6/uL (3.85-5.65); White Blood Count 4.50 10^3/uL (3.29-11.43)
[2025-02-19 10:38] LABS: Alanine Aminotransferase 18 U/L (0-33); Albumin Level 3.8 g/dL (3.5-5.2); Alkaline Phosphatase 88 U/L (35-105); Anion Gap 18.8 (5-19); Aspartate Amino Transferase 17 U/L (0-32); Blood Urea Nitrogen 13 mg/dL (6-20); Calcium 9.6 mg/dL (8.5-10.5); Carbon Dioxide 23 mmol/L (22-29); Chloride 102 mmol/L (98-107); Creatinine Clr Calc Pharmacy 142.4631; Globulin 3.7 g/dL (1.3-4.6); Glucose 96 mg/dL (65-115); Osmolality Calculated 290 mOsm/kg (285-295); Potassium 3.8 mmol/L (3.5-5.1); Sodium 140 mmol/L (136-145); Total Protein 7.5 g/dL (6.6-8.7)
[2025-02-19] MEDS: pertuzumab-trastuzumab-hy-zzxf (60 mg-60mg-2000 units/mL) 10mL 600 MG SUBCUT (12:41)
--- NOTE | 2025-02-26 10:40 | ONCRAD EPV_ITS ---
Radiation Oncology Established Patient Visit Patient: Ara Stephen [id number] : 1975 Age: 49 Sex: Female Dictated by: Dr. Tyshawn Villalba Date of Service: 02/26/2025 Referring Physician(s) : Diagnosis: C50.912 - Malignant neoplasm of unspecified site of left female breast, Diagnosed 11/19/2024 (Active) C77.3 - Secondary and unspecified malignant neoplasm of axilla and upper limb lymph nodes, Diagnosed 11/19/2024 (Active) Radiotherapy to Date: Course: L chest wall, Treatment Site: LSClav/PAB, Ref. ID: PTV SClav, Energy: 15X/6X, Dose/Fx (cGy): 180, #Fx: 25, Dose Correction (cGy): 0, Total Dose Delivered (cGy): 3,960, Start Date: 01/08/2025, End Date: 02/12/2025, Elapsed Days: 35 Course: L chest wall, Treatment Site: LCW Bolus, Ref. ID: PTV Chestwall, Energy: 15X/6X, Dose/Fx (cGy): 200, #Fx: 25, Dose Correction (cGy): 0, Total Dose Delivered (cGy): 4,400, Start Date: 01/08/2025, End Date: 02/12/2025, Elapsed Days: 35 Current History: She continues to have 7 on 10 scale of left chest wall pain. Using Silvedene and topical Polymem dressing. Tramadol for pain helps some. Current Medications: apixaban 5 mg PO BID bupropion HCl XL 300 mg PO DAILY diclofenac sodium 1% (Voltaren Arthritis Pain) 2 grams topical QID diphenoxylate-atropine 2.5-0.025 mg 1 tab PO Q6H lorazepam 0.5 - 1 mg (0.5 - 1 x 1 mg) PO Q6H PRN ondansetron 8 mg PO Q8H PRN paroxetine HCl 40 mg PO DAILY valsartan (Diovan) 40 mg PO BID Allergies: avocado Allergy (Verified 01/08/25 13:24) ALGY-Swell Lip/Tongue/Throat Current Complaints / Review of Systems: . Vital Signs: Performed on 02/26/2025 9:31 AM BMI - 59.204 kg/m2 (high), Height - 67 in, Weight - 378 lbs, Temperature - 97 f, Pulse - 92 /min, Respiration - 18 /min, O2 Sat - 96 %, Pain - 8, Fatigue - 0 and BP - 122/ 84 mm(hg). Physical Exam:Left supraclav erythema. Healing left chest wall moist desquamation. Islands of new skin seen. No Discharge or odor. Performance Status: ECOG PS 1 Lab: None pending. Pathology: Primary, c50.912 - malignant neoplasm of unspecified site of left female breast, Diagnosed 11/19/2024 (active) and Primary, c77.3 - secondary and unspecified malignant neoplasm of axilla and upper limb lymph nodes, Diagnosed 11/19/2024 (active) . Impression: Healing left chest wall moist desquamation. Add Aquaphor to Silvedene. Add 2% viscose of lidocaine. Renewed tramadol. Phone call follow in 1 week to review for improvement. Signed by: 02/26/2025 10:39:02 AM <<Signature on File>> Time spent with patient: CPT Code: CPT Code:
[2025-03-12 10:43] LABS: Hematocrit 37.6 % (36-47); Hemoglobin 12.10 g/dL (11.27-16.99); Mean Corpuscular HGB Conc 32.2 g/dL (30-55); Mean Corpuscular Hemoglobin 25.5 pg (27-33); Mean Corpuscular Volume 79.3 fl (85-98); Nucleated Red Blood Cells % 0 %; Platelet Count 163 10^3/cmm (157-399); Red Blood Count 4.74 10^6/uL (3.85-5.65); White Blood Count 7.05 10^3/uL (3.29-11.43)
[2025-03-12 10:52] LABS: Alanine Aminotransferase 36 U/L (0-33); Albumin Level 3.3 g/dL (3.5-5.2); Alkaline Phosphatase 65 U/L (35-105); Anion Gap 15.5 (5-19); Aspartate Amino Transferase 56 U/L (0-32); Blood Urea Nitrogen 9 mg/dL (6-20); Calcium 9.1 mg/dL (8.5-10.5); Carbon Dioxide 23 mmol/L (22-29); Chloride 102 mmol/L (98-107); Creatinine Clr Calc Pharmacy 126.6339; Globulin 3.6 g/dL (1.3-4.6); Glucose 156 mg/dL (65-115); Osmolality Calculated 286 mOsm/kg (285-295); Potassium 3.5 mmol/L (3.5-5.1); Sodium 137 mmol/L (136-145); Total Protein 6.9 g/dL (6.6-8.7)
[2025-03-12 11:17] LABS: Slide Review Slide Review Perform
--- NOTE | 2025-03-12 12:05 | ONCRAD EPV_ITS ---
Radiation Oncology Established Patient Visit Patient: Ara Stephen [id number] : 1975 Age: 49 Sex: Female Dictated by: Dr. Kb Sherman Date of Service: 03/12/2025 Referring Physician(s) : Diagnosis: C50.912 - Malignant neoplasm of unspecified site of left female breast, Diagnosed 11/19/2024 (Active) C77.3 - Secondary and unspecified malignant neoplasm of axilla and upper limb lymph nodes, Diagnosed 11/19/2024 (Active) Radiotherapy to Date: Course: L chest wall, Treatment Site: LSClav/PAB, Ref. ID: PTV SClav, Energy: 15X/6X, Dose/Fx (cGy): 180, #Fx: 25, Dose Correction (cGy): 0, Total Dose Delivered (cGy): 3,960, Start Date: 01/08/2025, End Date: 02/12/2025, Elapsed Days: 35 Course: L chest wall, Treatment Site: LCW Bolus, Ref. ID: PTV Chestwall, Energy: 15X/6X, Dose/Fx (cGy): 200, #Fx: , Dose Correction (cGy): 0, Total Dose Delivered (cGy): 4,400, Start Date: 01/08/2025, End Date: 02/12/2025, Elapsed Days: 35 Current History: Here for first follow-up since completing left chest wall and colin radiation. She completed treatment on 02/12/2025. She continues to use Domeboro's, Silvadene, and PolyMem dressings. She utilizes tramadol for pain. She was unable to tolerate topical lidocaine. Vague visual changes and generalized headaches noted any new increasing fashion. Current Medications: apixaban 5 mg PO BID bupropion HCl XL 300 mg PO DAILY diclofenac sodium 1% (Voltaren Arthritis Pain) 2 grams topical QID diphenoxylate-atropine 2.5-0.025 mg 1 tab PO Q6H ferrous gluconate 324 mg PO DAILY [lidocaine viscous 2% apply to affected skin 2 to 4 x a day; 4 weeks] lidocaine-prilocaine 2.5-2.5 % 1 applic topical QID PRN 2 weeks lorazepam 0.5 - 1 mg (0.5 - 1 x 1 mg) PO Q6H PRN metronidazole 500 mg PO BID 3 days ondansetron 8 mg PO Q8H PRN paroxetine HCl 40 mg PO DAILY silver sulfadiazine 1% (Silvadene) 1 applic topical BID PRN sucralfate (Carafate) 1 g PO TID tramadol 50 mg PO Q4H PRN tramadol 50 mg PO TID PRN valsartan (Diovan) 40 mg PO BID Allergies: avocado Allergy (Verified 03/12/25 11:20) ALGY-Swell Lip/Tongue/Throat Current Complaints / Review of Systems: . As above Vital Signs: Performed on 03/12/2025 10:46 AM BMI - 59.517 kg/m2 (high), Height - 67 in, Weight - 380 lbs, Temperature - 97.9 f, Pulse - 95 /min, Respiration - 18 /min, O2 Sat - 95 % (low), Pain - 9, Fatigue - 0 and BP - 138/ 85 mm(hg). Physical Exam: General: Alert and oriented x 3. No acute distress. HEENT: Normocephalic, atraumatic. Extraocular Movements Intact: Pupils Equal, Round, Reactive to Light and Accommodation: Sclerae anicteric. Oral cavity is clear without lesions, masses or ulcers. NECK: Supple without supraclavicular or jugular lymphadenopathy. LUNGS: Clear to auscultation bilaterally without rales, rhonchi or wheeze. HEART: Regular rate and rhythm, normal S1 and S2 without murmur, gallop or rub. Breast: Bilateral Mastectomies Noted's Some Superior Scar Healing Has Been Noted. The Lateral Scar Shows Widening Skin Healing. MUSCULOSKELETAL: No tenderness or percussion pain over the axial skeleton, scapulae or pelvis. ABDOMEN: Soft, nontender, nondistended without masses or organomegaly. Bowell sounds are present. EXTREMITIES: No peripheral edema is identified. Limited motor and sensory examination are grossly intact and symmetric bilaterally. NEUROLOGIC: Cranial nerves II ???XII are grossly intact. Normal sensation, strength 5/5 in all extremities, normal gait, no ataxia. Performance Status: KPS 80 Lab: None pending. Pathology: Primary, c50.912 - malignant neoplasm of unspecified site of left female breast, Diagnosed 11/19/2024 (active) and Primary, c77.3 - secondary and unspecified malignant neoplasm of axilla and upper limb lymph nodes, Diagnosed 11/19/2024 (active) . Imaging: See HPI Impression: Slowly healing lateral moist desquamation. Vitamin D cream to be added to the regiment. MRI of the head prior to next visit RTC in 2 weeks or sooner if need be. Signed by: 03/12/2025 12:04:13 PM <<Signature on File>> Time spent with patient: 20 minutes CPT Code: CPT Code:
[2025-03-12 13:43] VITALS: RESP 16
[2025-03-12] MEDS: morphine 4 mg/mL SDV 1 mL 2 MG IVP (13:43)
[2025-03-12] MEDS: aprepitant 130 mg/18 ml SDV IVP (13:54)
[2025-03-12] MEDS: pertuzumab-trastuzumab-hy-zzxf (60 mg-60mg-2000 units/mL) 10mL 600 MG SUBCUT (15:36)
[2025-03-12 16:15] VITALS: BP 105/70; PULSE 83; O2SAT 92
== END 2025-03-12 23:59 | disposition home or self-care (01) ==
PROVIDERS: Visit Provider Nurse Practitioner Family
DX: Z51.12 Encounter for antineoplastic immunotherapy; C50.412 Malignant neoplasm of upper-outer quadrant of left female breast; Z79.899 Other long term (current) drug therapy; Z53.9 Procedure and treatment not carried out, unspecified reason
CPT/HCPCS: 36415; 80053; 85025; 96361; 96374; 96375; 96401; J0185; J2270; J3490; J7030; J9316; J9999

== ENCOUNTER 2025-03-12 16:39 | Outpatient (CLI) | payer BC, MEDICAID, SELFPAY ==
--- NOTE | 2025-03-12 16:45 | MR_ITS ---
WS: [id number] MRI HEAD WITH CONTRAST TECHNIQUE: Sagittal T1, T2 axial, T2 axial FLAIR, axial susceptibility weighted imaging, axial diffusion weighted images, and coronal T2 images were obtained. Pre and post-T1 axial and post T1 coronal images. ADC and FSPGR images. CLINICAL INFORMATION: severe headaches waking up at night COMPARISON: CT 2023 FINDINGS: No evidence of restricted diffusion to suggest acute ischemia. No evidence of enhancing metastatic disease. Cerebellar tonsillar ectopia. No hemosiderin on susceptibility-weighted images. No hydrocephalus. Normal vascular flow voids at the skull base. No extra-axial fluid collections. Paranasal sinuses and mastoid air cells are well aerated. Mild patchy supratentorial white matter changes can be seen with hypertension, diabetes, and migraine headaches. Focal lesion in the RIGHT cerebellum adjacent to the fourth ventricle has a chronic appearance and may be due to prior inflammatory or ischemic etiologies and appears unchanged since 2023 better appreciated on today's study. Normal optic chiasm and pituitary infundibulum. Incidental benign venous angioma LEFT frontal lobe no other significant findings. MR/MR head wo/w con [id number] IMPRESSION: 1. No evidence of restricted diffusion to suggest acute ischemia. 2. No evidence of enhancing intracranial metastatic disease. 3. Mild patchy supratentorial white matter changes can be seen with hypertensi on, diabetes, and migraine headaches. 4. Focal lesion in the cerebellum adjacent to the fourth ventricle likely due to prior inflammatory or ischemic etiologies measuring 10 mm unchanged since . 5. Stable cerebellar tonsillar ectopia.
[2025-03-12] MEDS: gadobenate dimeglumine 20 mL vial IV (17:16)
== END 2025-03-12 16:40 | disposition home or self-care (01) ==
LOC: RAD 16:40
PROVIDERS: PCP Nurse Practitioner; Visit Provider Nurse Practitioner Family
DX: R51.9 Headache, unspecified (principal); H53.8 Other visual disturbances; G93.89 Other specified disorders of brain
CPT/HCPCS: 70553

== ENCOUNTER 2025-03-20 08:00 | Oncology outpatient (recurring) (ONCR) | payer BC, MEDICAID, SELFPAY ==
[2025-03-19 10:44] LABS: Hematocrit 35.9 % (36-47); Hemoglobin 11.40 g/dL (11.27-16.99); Mean Corpuscular HGB Conc 31.8 g/dL (30-55); Mean Corpuscular Hemoglobin 25.3 pg (27-33); Mean Corpuscular Volume 79.8 fl (85-98); Nucleated Red Blood Cells % 0 %; Platelet Count 171 10^3/cmm (157-399); Red Blood Count 4.50 10^6/uL (3.85-5.65); White Blood Count 6.28 10^3/uL (3.29-11.43)
[2025-03-19 11:06] LABS: Alanine Aminotransferase 42 U/L (0-33); Albumin Level 3.0 g/dL (3.5-5.2); Alkaline Phosphatase 75 U/L (35-105); Anion Gap 13.8 (5-19); Aspartate Amino Transferase 63 U/L (0-32); Blood Urea Nitrogen 12 mg/dL (6-20); Calcium 8.4 mg/dL (8.5-10.5); Carbon Dioxide 23 mmol/L (22-29); Chloride 103 mmol/L (98-107); Creatinine Clr Calc Pharmacy 162.8150; Ferritin 378 ng/mL (15-150); Globulin 3.4 g/dL (1.3-4.6); Glucose 114 mg/dL (65-115); Iron 67 ug/dL (37-145); Osmolality Calculated 283 mOsm/kg (285-295); Potassium 3.8 mmol/L (3.5-5.1); Sodium 136 mmol/L (136-145); Total Iron Binding Capacity 186 mcg/dl; Total Protein 6.4 g/dL (6.6-8.7); Unsaturated Iron Binding 119 ug/dL (112-347)
[2025-03-19 11:21] LABS: Slide Review Slide Review Perform
[2025-03-19 12:33] VITALS: BP 119/65; PULSE 79; TEMP 35.9; O2SAT 96
--- NOTE | 2025-03-20 08:00 | USCV_ITS ---
Zafar Ara Age: 49 Gender: F : 1975 Exam Date: 03/20/2025 08:07 Ordering Phys: Corin Castillo MD Technologist: Exam Location: [facility] [place]_ Indication: ef high risk meds BP: 130 / 80 HR: Rhythm: Sinus Technical Quality: Adequate MEASUREMENTS (Male / Female) Normal Values 2D ECHO LV Diastolic Diameter PLAX 5.1 cm 4.2 - 5.9 / 3.9 - 5.3 cm IVS Diastolic Thickness 1.3 cm 0.6 - 1.0 / 0.6 - 0.9 cm IVS Systolic Thickness 1.5 cm LVPW Diastolic Thickness 1.0 cm 0.6 - 1.0 / 0.6 - 0.9 cm LVPW Systolic Thickness 1.6 cm LVOT Diameter 2.1 cm LV Ejection Fraction 2D Teich 65.3 % LV Ejection Fraction MOD 4C 62.6 % LV Ejection Fraction MOD 2C 62.0 % LV Ejection Fraction 2C AL 63.1 % LA Diameter 3.4 cm RA Systolic Volume 4C AL 46.1 ml RA Systolic Volume 4C MOD 43.0 ml Aorta at Sinotubular Diameter 3.1 cm M-MODE LA Ao Ratio MM 1.1 AV Cusp Separation MM 2.6 cm FINDINGS Left Ventricle Normal left ventricular size and systolic function, ejection fraction 62%. Right Ventricle Right Atrium Left Atrium Mitral Valve Aortic Valve Tricuspid Valve Pulmonic Valve Pericardium Aorta IVC CONCLUSIONS This study was ordered as a limited study to check left ventricular function only Normal left ventricular size and systolic function with normal ejection fraction 62% Ariel Porras MD, FACC (Electronically Signed) Final Date: 22 March 2025 08:17 S
[2025-03-20] MEDS: perflutren protein-a microsphr 0.22 mg/mL SDV 3 mL IV (09:23)
== END 2025-03-21 23:59 | disposition home or self-care (01) ==
LOC: RAD 03-21 00:01 → ONCMED 03-21 09:17
PROVIDERS: PCP Nurse Practitioner; Visit Provider Nurse Practitioner Family
DX: C50.412 Malignant neoplasm of upper-outer quadrant of left female breast; Z53.9 Procedure and treatment not carried out, unspecified reason
CPT/HCPCS: 36415; 80053; 82728; 83540; 83550; 85025; 93308; 96360; J7030

== ENCOUNTER 2025-04-02 10:13 | Oncology outpatient (recurring) (ONCR) | payer BC, MEDICAID, SELFPAY ==
[2025-04-02 11:12] LABS: Hematocrit 36.7 % (36-47); Hemoglobin 11.50 g/dL (11.27-16.99); Mean Corpuscular HGB Conc 31.3 g/dL (30-55); Mean Corpuscular Hemoglobin 26.4 pg (27-33); Mean Corpuscular Volume 84.4 fl (85-98); Nucleated Red Blood Cells % 0 %; Platelet Count 202 10^3/cmm (157-399); Red Blood Count 4.35 10^6/uL (3.85-5.65); White Blood Count 4.33 10^3/uL (3.29-11.43)
[2025-04-02 11:31] LABS: Alanine Aminotransferase 26 U/L (0-33); Albumin Level 3.5 g/dL (3.5-5.2); Alkaline Phosphatase 65 U/L (35-105); Anion Gap 13.2 (5-19); Aspartate Amino Transferase 36 U/L (0-32); Blood Urea Nitrogen 13 mg/dL (6-20); Calcium 9.1 mg/dL (8.5-10.5); Carbon Dioxide 23 mmol/L (22-29); Chloride 106 mmol/L (98-107); Globulin 3.7 g/dL (1.3-4.6); Glucose 93 mg/dL (65-115); Osmolality Calculated 286 mOsm/kg (285-295); Potassium 4.2 mmol/L (3.5-5.1); Sodium 138 mmol/L (136-145); Total Protein 7.2 g/dL (6.6-8.7)
[2025-04-02] MEDS: pertuzumab-trastuzumab-hy-zzxf (60 mg-60mg-2000 units/mL) 10mL 600 MG SUBCUT (14:14)
== END 2025-04-21 23:59 | disposition home or self-care (01) ==
PROVIDERS: PCP Nurse Practitioner; Visit Provider Nurse Practitioner Family
DX: Z51.12 Encounter for antineoplastic immunotherapy (principal); C50.412 Malignant neoplasm of upper-outer quadrant of left female breast; Z79.899 Other long term (current) drug therapy
CPT/HCPCS: 80053; 85025; 96360; 96401; 96413; J7030; J9316; J9999

== ENCOUNTER 2025-05-13 10:30 | Oncology outpatient (recurring) (ONCR) | payer BC, MEDICAID, SELFPAY ==
[2025-04-23 10:42] LABS: Hematocrit 36.5 % (36-47); Hemoglobin 11.90 g/dL (11.27-16.99); Mean Corpuscular HGB Conc 32.6 g/dL (30-55); Mean Corpuscular Hemoglobin 28.0 pg (27-33); Mean Corpuscular Volume 85.9 fl (85-98); Nucleated Red Blood Cells % 0 %; Platelet Count 202 10^3/cmm (157-399); Red Blood Count 4.25 10^6/uL (3.85-5.65); White Blood Count 3.89 10^3/uL (3.29-11.43)
[2025-04-23 10:50] LABS: Alanine Aminotransferase 21 U/L (0-33); Albumin Level 3.9 g/dL (3.5-5.2); Alkaline Phosphatase 70 U/L (35-105); Anion Gap 15.8 (5-19); Aspartate Amino Transferase 25 U/L (0-32); Blood Urea Nitrogen 14 mg/dL (6-20); Calcium 9.7 mg/dL (8.5-10.5); Carbon Dioxide 23 mmol/L (22-29); Chloride 103 mmol/L (98-107); Globulin 3.5 g/dL (1.3-4.6); Glucose 115 mg/dL (65-115); Osmolality Calculated 287 mOsm/kg (285-295); Potassium 3.8 mmol/L (3.5-5.1); Sodium 138 mmol/L (136-145); Total Protein 7.4 g/dL (6.6-8.7)
[2025-04-23] MEDS: pertuzumab-trastuzumab-hy-zzxf (60 mg-60mg-2000 units/mL) 10mL 600 MG SUBCUT (14:24)
[2025-05-13 11:11] LABS: Hematocrit 36.0 % (36-47); Hemoglobin 12.10 g/dL (11.27-16.99); Mean Corpuscular HGB Conc 33.6 g/dL (30-55); Mean Corpuscular Hemoglobin 28.9 pg (27-33); Mean Corpuscular Volume 85.9 fl (85-98); Nucleated Red Blood Cells % 0 %; Platelet Count 174 10^3/cmm (157-399); Red Blood Count 4.19 10^6/uL (3.85-5.65); White Blood Count 4.03 10^3/uL (3.29-11.43)
[2025-05-13 11:41] LABS: Alanine Aminotransferase 17 U/L (0-33); Albumin Level 3.7 g/dL (3.5-5.2); Alkaline Phosphatase 68 U/L (35-105); Anion Gap 13.5 (5-19); Aspartate Amino Transferase 18 U/L (0-32); Blood Urea Nitrogen 17 mg/dL (6-20); CA 15-3 9.9 U/mL (0-25); Calcium 9.1 mg/dL (8.5-10.5); Carbon Dioxide 24 mmol/L (22-29); Chloride 105 mmol/L (98-107); Creatinine Clr Calc Pharmacy 138.7285; Globulin 3.3 g/dL (1.3-4.6); Glucose 107 mg/dL (65-115); Osmolality Calculated 290 mOsm/kg (285-295); Potassium 3.5 mmol/L (3.5-5.1); Sodium 139 mmol/L (136-145); Total Protein 7.0 g/dL (6.6-8.7)
[2025-05-13] MEDS: pertuzumab-trastuzumab-hy-zzxf (60 mg-60mg-2000 units/mL) 10mL 600 MG SUBCUT (14:15)
== END 2025-05-13 23:59 | disposition home or self-care (01) ==
PROVIDERS: Internal Medicine Medical Oncology; PCP Nurse Practitioner; Visit Provider Nurse Practitioner Family
DX: Z51.12 Encounter for antineoplastic immunotherapy (principal); C50.412 Malignant neoplasm of upper-outer quadrant of left female breast; Z79.899 Other long term (current) drug therapy
CPT/HCPCS: 36415; 80053; 85025; 86300; 96360; 96401; 96402; J7030; J9316; J9999

== ENCOUNTER 2025-06-19 11:45 | Oncology outpatient (recurring) (ONCR) | payer BC, MEDICAID, SELFPAY ==
--- NOTE | 2025-05-27 07:45 | US_ITS ---
WS: [id number] Complete ABDOMINAL ULTRASOUND HISTORY: Re-evaluation of liver and spleen size COMPARISON: 12/30/2011 ultrasound, CT 02/10/2025 Liver: 18.0 cm in length. Liver is slightly enlarged. Measuring the liver in the same plane by ultrasound and the recent CT demonstrates no change. The liver is probably close to 18 to 19 cm in length. Portal Vein: Normal hepatopetal flow with monophasic waveform. Gallbladder: Prior cholecystectomy. CBD: 0.5 cm Pancreas: Limited but unremarkable. Right kidney: 10.9 cm x 3.9 x 6.0 cm. Cortex:1.7 cm. Normal size and echogenicity. No hydronephrosis or mass. Left kidney: 10.6 cm x 5.3 cm x 4.5 cm. Cortex: 1.3 cm. Normal size and echogenicity. No hydronephrosis or mass. Spleen: 11.6 cm. Normal size and echogenicity. Aorta and IVC: Unremarkable abdominal aorta and IVC. US/US abdomen complete* [id number] Impression: 1. Liver is measuring slightly enlarged at 18 cm in length. When comparing thi s ultrasound and the recent CT measurements in the same planes there is similar ity. Liver is only mildly enlarged. 2. Normal size spleen. Prior CT measurement of 12.6 cm. No splenomegaly. 3. Prior cholecystectomy. 4. No renal obstruction.
[2025-06-03 11:55] LABS: Hematocrit 37.1 % (36-47); Hemoglobin 12.40 g/dL (11.27-16.99); Mean Corpuscular HGB Conc 33.4 g/dL (30-55); Mean Corpuscular Hemoglobin 29.0 pg (27-33); Mean Corpuscular Volume 86.9 fl (85-98); Nucleated Red Blood Cells % 0 %; Platelet Count 205 10^3/cmm (157-399); Red Blood Count 4.27 10^6/uL (3.85-5.65); White Blood Count 4.52 10^3/uL (3.29-11.43)
[2025-06-03 12:10] LABS: Alanine Aminotransferase 17 U/L (0-33); Albumin Level 3.8 g/dL (3.5-5.2); Alkaline Phosphatase 77 U/L (35-105); Anion Gap 15.8 (5-19); Aspartate Amino Transferase 21 U/L (0-32); Blood Urea Nitrogen 15 mg/dL (6-20); Calcium 9.5 mg/dL (8.5-10.5); Carbon Dioxide 24 mmol/L (22-29); Chloride 103 mmol/L (98-107); Creatinine Clr Calc Pharmacy 138.5633; Globulin 3.6 g/dL (1.3-4.6); Glucose 96 mg/dL (65-115); Osmolality Calculated 289 mOsm/kg (285-295); Potassium 3.8 mmol/L (3.5-5.1); Sodium 139 mmol/L (136-145); Total Protein 7.4 g/dL (6.6-8.7)
[2025-06-03] MEDS: pertuzumab-trastuzumab-hy-zzxf (60 mg-60mg-2000 units/mL) 10mL 600 MG SUBCUT (15:03)
--- NOTE | 2025-06-19 11:45 | MR_ITS ---
WS: [id number] MR venogram INDICATION: Headache TECHNIQUE: 2D and 3D [id number] MR venography with maximum intensity projection images COMPARISON: MR venography 06/23/[address] FINDINGS: Normal sagittal sinus. Normal straight sinus. Normal internal cerebral veins. Normal torcula. LEFT dominant transverse sinus unchanged since the prior venograms. No evidence of dural sinus thrombosis. MR/[place] [id number] IMPRESSION: 1. No evidence of dural sinus thrombosis
== END 2025-06-21 23:59 | disposition home or self-care (01) ==
LOC: RAD 06-20 → ONCMED 06-20 09:37
PROVIDERS: PCP Nurse Practitioner; Visit Provider Nurse Practitioner Family
DX: Z86.718 Personal history of other venous thrombosis and embolism; R93.0 Abnormal findings on diagnostic imaging of skull and head, not elsewhere classified; Z53.9 Procedure and treatment not carried out, unspecified reason
CPT/HCPCS: 36415; 70544; 76700; 80053; 85025; 96401; J9316; J9999

== ENCOUNTER 2025-06-27 10:05 | Oncology outpatient (recurring) (ONCR) | payer BC, MEDICAID, SELFPAY ==
--- NOTE | 2025-06-25 12:45 | USCV_ITS ---
Ara Stephen Age: 50 Gender: F : 1975 Exam Date: 06/25/2025 12:52 Ordering Phys: Corin Castillo MD Technologist: [place] [facility] [place]: high risk meds BP: 120 / 70 HR: 72 Rhythm: Sinus Technical Quality: Adequate MEASUREMENTS (Male / Female) Normal Values 2D ECHO LV Diastolic Diameter PLAX 5.4 cm 4.2 - 5.9 / 3.9 - 5.3 cm IVS Diastolic Thickness 1.4 cm 0.6 - 1.0 / 0.6 - 0.9 cm IVS Systolic Thickness 1.8 cm LVPW Diastolic Thickness 1.3 cm 0.6 - 1.0 / 0.6 - 0.9 cm LVPW Systolic Thickness 1.7 cm LVOT Diameter 2.1 cm LV Ejection Fraction 2D Teich 67.6 % LV Ejection Fraction MOD 4C 61.3 % LV Ejection Fraction MOD 2C 64.0 % LV Ejection Fraction 2C AL 63.6 % LA Diameter 3.8 cm RA Systolic Volume 4C AL 39.4 ml RA Systolic Volume 4C MOD 38.2 ml Aorta at Sinotubular Diameter 3.0 cm M-MODE LA Ao Ratio MM 1.2 AV Cusp Separation MM 2.6 cm DOPPLER AV Peak Velocity 113.0 cm/s LVOT Peak Velocity 79.0 cm/s AV Area Cont Eq vti 3.0 cm squared AV Area Cont Eq pk 2.4 cm squared MV Peak Velocity 72.0 cm/s MV Area PHT 3.6 cm squared Mitral E to A Ratio 1.2 TV Peak Velocity 174.5 cm/s TR Peak Velocity 206.0 cm/s TR Peak Gradient 17.0 mmHg PV Peak Velocity 114.0 cm/s FINDINGS Left Ventricle Suboptimal study because of the poor ultrasonic window. Possibly normal LV size with an ejection fraction of 61%. Segmental wall motion analysis difficult. No gross abnormalities noted.abnormal septal motion consistent with conduction abnormality. Right Ventricle Possibly of normal size and ejection fraction. Could not be well-visualized Right Atrium Possibly of normal size Left Atrium Normal left atrial size. IA Septum Normal interatrial septum. Mitral Valve No gross abnormalities noted Aortic Valve Could not be delineated well Tricuspid Valve Trace tricuspid valve regurgitation. Pulmonic Valve Pulmonic valve not well visualized. Pericardium No pericardial effusion. Aorta The ascending aorta appears to be mildly dilated. It measured 3.7 cm in diameter just above the level of the isthmus IVC Inferior vena cava not visualized. CONCLUSIONS Suboptimal study because of the poor ultrasonic window. Possibly normal LV size with an ejection fraction of 61%. Segmental wall motion analysis difficult. No gross abnormalities noted.abnormal septal motion consistent with conduction abnormality. The ascending aorta appears to be mildly dilated. It measured 3.7 cm in diameter just above the level of the isthmus. Trace tricuspid valve regurgitation. There is no pericardial effusion. Comparison with the previous study is difficult because of the difference in the technical quality. Dr Harvey Velarde MD [facility] (Electronically Signed) Final Date: 28 June 2025 19:20 S
[2025-06-27 10:24] LABS: Hematocrit 38.4 % (36-47); Hemoglobin 12.60 g/dL (11.27-16.99); Mean Corpuscular HGB Conc 32.8 g/dL (30-55); Mean Corpuscular Hemoglobin 28.3 pg (27-33); Mean Corpuscular Volume 86.3 fl (85-98); Nucleated Red Blood Cells % 0 %; Platelet Count 201 10^3/cmm (157-399); Red Blood Count 4.45 10^6/uL (3.85-5.65); White Blood Count 4.44 10^3/uL (3.29-11.43)
[2025-06-27 10:49] LABS: Alanine Aminotransferase 17 U/L (0-33); Albumin Level 4.0 g/dL (3.5-5.2); Alkaline Phosphatase 74 U/L (35-105); Anion Gap 14.8 (5-19); Aspartate Amino Transferase 18 U/L (0-32); Blood Urea Nitrogen 16 mg/dL (6-20); Calcium 9.4 mg/dL (8.5-10.5); Carbon Dioxide 22 mmol/L (22-29); Chloride 106 mmol/L (98-107); Globulin 3.2 g/dL (1.3-4.6); Glucose 108 mg/dL (65-115); Osmolality Calculated 290 mOsm/kg (285-295); Potassium 3.8 mmol/L (3.5-5.1); Sodium 139 mmol/L (136-145); Total Protein 7.2 g/dL (6.6-8.7)
[2025-06-27] MEDS: pertuzumab-trastuzumab-hy-zzxf (60 mg-60mg-2000 units/mL) 10mL 600 MG SUBCUT (12:18)
== END 2025-07-21 23:59 | disposition home or self-care (01) ==
PROVIDERS: Internal Medicine Medical Oncology; PCP Nurse Practitioner; Visit Provider Nurse Practitioner Family
DX: Z53.9 Procedure and treatment not carried out, unspecified reason; Z51.12 Encounter for antineoplastic immunotherapy; C50.412 Malignant neoplasm of upper-outer quadrant of left female breast; Z79.899 Other long term (current) drug therapy
CPT/HCPCS: 80053; 85025; 93306; 96372; 96402; J9316; J9999

== ENCOUNTER 2025-07-25 12:30 | Oncology outpatient (recurring) (ONCR) | payer BC, MEDICAID, SELFPAY ==
[2025-07-25 12:54] LABS: Hematocrit 39.0 % (36-47); Hemoglobin 13.20 g/dL (11.27-16.99); Mean Corpuscular HGB Conc 33.8 g/dL (30-55); Mean Corpuscular Hemoglobin 29.1 pg (27-33); Mean Corpuscular Volume 85.9 fl (85-98); Nucleated Red Blood Cells % 0 %; Platelet Count 205 10^3/cmm (157-399); Red Blood Count 4.54 10^6/uL (3.85-5.65); White Blood Count 4.36 10^3/uL (3.29-11.43)
[2025-07-25 13:21] LABS: Alanine Aminotransferase 19 U/L (0-33); Albumin Level 4.2 g/dL (3.5-5.2); Alkaline Phosphatase 83 U/L (35-105); Anion Gap 14.7 (5-19); Aspartate Amino Transferase 19 U/L (0-32); Blood Urea Nitrogen 18 mg/dL (6-20); Calcium 9.7 mg/dL (8.5-10.5); Carbon Dioxide 25 mmol/L (22-29); Chloride 105 mmol/L (98-107); Cholesterol 214 mg/dL (0-200); Globulin 3.5 g/dL (1.3-4.6); Glucose 127 mg/dL (65-115); HDL Cholesterol 39 mg/dL (60-100); Osmolality Calculated 295 mOsm/kg (285-295); Potassium 3.7 mmol/L (3.5-5.1); Sodium 141 mmol/L (136-145); Total Protein 7.7 g/dL (6.6-8.7); Triglycerides 247 mg/dL (0-150); VLDL Cholestrol Calculation 49 mg/dL (0-30)
[2025-07-25] MEDS: pertuzumab-trastuzumab-hy-zzxf (60 mg-60mg-2000 units/mL) 10mL 600 MG SUBCUT (14:55)
== END 2025-08-21 23:59 | disposition home or self-care (01) ==
PROVIDERS: PCP Nurse Practitioner; Visit Provider Nurse Practitioner Family
DX: Z53.9 Procedure and treatment not carried out, unspecified reason; Z51.12 Encounter for antineoplastic immunotherapy; C50.412 Malignant neoplasm of upper-outer quadrant of left female breast; Z79.899 Other long term (current) drug therapy; I10 Essential (primary) hypertension
CPT/HCPCS: 36415; 80053; 80061; 85025; 96401; J9316; J9999